=== PATIENT | female | born 1965 | race Caucasian/White ===

== ENCOUNTER 2024-04-06 07:50 | Emergency (ER) | payer BC, SELFPAY ==
[2024-04-06 07:51] VITALS: BP 142/92; PULSE 122; RESP 18; TEMP 36.8; O2SAT 98
--- NOTE | 2024-04-06 07:56 | ED.ABDPAIN ---
HPI - Abdominal Pain General Chief Complaint: Abdominal Pain Stated Complaint: abdominal pain Time Seen by Provider: 04/06/24 07:55 Source: patient and family Mode of arrival: ambulatory Limitations: no limitations History of Present Illness HPI narrative: Patient is a 58-year-old female with abdominal distension and bloating for the past 3 weeks. She has associated abdominal pain with nausea and vomiting. She has seen a primary doctor in which actually made things worse. History of vaginal hysterectomy partial. MD elicited complaint: abdominal pain Pertinent past history: constipation ( difficulty with stool) and gastrointestinal bleeding ( Hemorrhoids) Onset (ago): week(s) ( 3) Pain Consistency: constant Location: diffuse Severity: moderate Pain scale (0-10): 5 Quality: aching, fullness and sharp Radiation: none Migration to: no migration Exacerbating factors: nothing and eating Relieving factors: nothing Context: confirms other ( patient has worsening abdominal pain and distension for the past 3 weeks) Associated symptoms: nausea, vomiting, constipation and hematochezia ( she also has a history of hemorrhoids) Treatments prior to arrival: other ( none) Review of Systems Review of Systems: All systems reviewed & are unremarkable except as noted in HPI and below Constitutional: Constitutional: Reports no additional constitutional complaints Eyes: Eyes: Reports no additional eye complaints ENT: Reports system reviewed and no additional complaints, except as documented Cardiovascular: Cardiovascular: Reports no additional cardiovascular complaints Respiratory: Respiratory: Reports no additional respiratory complaints Gastrointestinal: Gastrointestinal: Reports no additional gastrointestinal complaints Genitourinary: Genitourinary: Reports no additional female genitourinary complaints Musculoskeletal: Musculoskeletal: Reports no additional musculoskeletal complaints Integumentary/Breasts: Skin/Breast: Reports system reviewed and no additional complaints, except as docu Neurologic: Reports system reviewed and no additional complaints, except as documented Psychiatric: Psychiatric: Reports no additional psychiatric complaints Endocrine: Endocrine: Reports no additional endocrine complaints Hematologic/Lymphatic: Hematologic/Lymphatic: Reports no additional hematologic/lymphatic complaints Allergic/Immunologic: Allergic/Immunologic: Reports no additional allergic/immunologic complaints Exam Const: General: ill appearing Nutritional Appearance: well nourished Orientation/consciousness: patient oriented x3 Limitations: no limitations HENMT: Head: normal to inspection Ears: external ears normal Face/Nose/Sinus: Normal external nose present Eyes: Conjunctivae: conjunctivae normal Pupils: Equal, round and reactive pupils present EOM: EOMs intact bilaterally Neck: Neck: normal visual inspection Chest: Chest palpation & inspection: normal inspection of the chest Resp: Effort & Inspection: normal respiratory effort and not labored Auscultation: clear to auscultation bilaterally and no crackles Cardio: Rate: regular rate Rhythm: regular rhythm Heart sounds: no murmurs GI: Inspection: distended GI Palp: No Soft to palpation, Yes Tenderness to palpation present (GI) ( diffuse), Yes Guarding due to palpation present (GI), Yes Rigid due to palpation, No Hernia present, No Palpable mass present and No Rebound tenderness present Auscultation: Hypoactive bowel sounds present Other: fluid wave test positive : General: Yes bladder normal to palpation Back/Spine/Pelvis: Back: no CVA tenderness Skin: General skin exam: normal color Rashes: no rashes Wounds: no wounds Neuro: General: patient oriented x3 Cranial nerves: Yes Nystagmus not present Speech: normal speech Gait exam (Neuro): Normal gait present Extrem: General: normal to inspection Psych: Mental Status: mental status grossly normal Affect: normal affect Attitude: cooperative Course Vital Signs Vital signs: Vital Signs Temperature 36.8 C 04/06/24 07:51 Pulse Rate 122 H 04/06/24 07:51 Respiratory Rate 18 04/06/24 07:51 Blood Pressure 142/92 H 04/06/24 07:51 Pulse Oximetry 98 04/06/24 07:51 Oxygen Delivery Room Air 04/06/24 07:51 Temperature 36.8 C 04/06/24 07:51 Pulse Rate 122 H 04/06/24 07:51 Respiratory Rate 18 04/06/24 07:51 Blood Pressure 142/92 H 04/06/24 07:51 Pulse Oximetry 98 04/06/24 07:51 Oxygen Delivery Room Air 04/06/24 07:51 MDM - Abdominal Pain MDM Narrative Medical decision making narrative: patient is a 58-year-old female with distension of the abdomen and pain with associated nausea vomiting. Will do an abdominal pain workup at this time. Workup shows obstruction with stricture. I discussed with the surgeon at [facility] and they accepted the case. We will transfer patient. Lab Data Attestation: I reviewed the patient's lab results. 04/06/24 08:18 04/06/24 08:18 Labs: Lab Results 04/06/24 Range/Units 08:18 WBC 12.5 H (4.8-10.8) K/mm3 RBC 4.83 (4.20-5.40) M/mm3 Hgb 14.4 (12.0-15.0) g/dL Hct 44.1 (35.0-49.0) % MCV 91.3 (78.0-102.0) fL MCH 29.8 (27.0-31.0) pg MCHC 32.7 (32-36) g/dL RDW 12.3 (11.6-14.4) % Plt Count 696 H (150-420) K/mm3 MPV 8.9 L (9.2-11.8) fl Immature Gran % (Auto) 0.6 H (0.0-0.0) % Neut % (Auto) 57.8 (50.0-70.0) % Lymph % (Auto) 29.2 (18.0-42.0) % Henderson % (Auto) 11.3 H (2.0-11.0) % Eos % (Auto) 0.5 L (1.0-6.0) % Baso % (Auto) 0.6 (0.0-1.0) % Lymph # (Auto) 3.64 (1.10-4.50) K/mm3 Henderson # (Auto) 1.41 H (0.10-0.90) K/mm3 Eos # (Auto) 0.06 (0.02-0.50) K/mm3 Baso # (Auto) 0.07 (0.00-0.10) K/mm3 Abs Immat Gran (auto) 0.08 H (0.00-0.00) K/mm3 Absolute Neuts (auto) 7.20 (1.70-7.20) K/mm3 Absolute Nucleated RBC 0.00 (0.00-0.00) K/mm3 Nucleated RBC % 0.0 (0-0.0) % % Immature Plt Fraction 1.4 (1.0-7.0) % PT 11.5 (9.50-12.1) Seconds INR 1.0 APTT 26.8 (23.9-30.70) Sec Sodium 136 (136-145) mmol/L Potassium 3.7 (3.5-5.1) mmol/L Chloride 94 L (98-108) mmol/L Carbon Dioxide 31 (21-32) mmol/L Anion Gap 11 (4-12) mmol/L BUN 20 H (7-18) mg/dL Creatinine 0.75 (0.55-1.02) mg/dL Estim Creat Clear Calc 59 ml/min Estimated GFR > 60 (59 - ) Glucose 114 H (70-99) mg/dL Calculated Osmolality 285 (285-295) mOsm/kg Lactic Acid 1.3 (0.4-2.0) mmol/L Calcium 8.8 (8.5-10.1) mg/dL Total Bilirubin 0.5 (0.00-1.00) mg/dL AST < 10 L (15-37) U/L ALT 15 (14-59) U/L Alkaline Phosphatase 79 (46-116) U/L NT-Pro-B Natriuret Pep 57 (0-125) pg/mL Total Protein 6.9 (6.4-8.2) g/dL Albumin 3.2 L (3.4-5.0) g/dL Lipase 26 (16-77) U/L Urine Color Dark yellow (Yellow) Urine Appearance Sl cloudy A (Clear) Urine pH 5.5 (5.0-8.0) Ur Specific [place]ock >= 1.030 H (1.010-1.020) Urine Protein 2+ H (Negative) Urine Glucose (UA) Negative (Negative) Urine Ketones 3+ H (Negative) Ur Blood (Man) 1+ H (Negative) Urine Nitrate Negative (Negative) Urine Bilirubin 2+ H (Negative) Urine Urobilinogen 1.0 (0.2-1.0) mg/dL Leukocyte Esterase Rfl Trace H (Negative) FAMILIA/UL Urine RBC 3-5 H (0-2) /hpf Urine WBC 0-3 (0-3) /hpf Ur Squamous Epith Cells Few (Few) /hpf Urine Bacteria 1+ H (None) /hpf Urine Mucus Moderate H /lpf Imaging Data Attestation: I personally reviewed and interpreted this imaging study as follows: Radiologist's impression: ITS Impressions Abdomen/Pelvis CT 04/06/24 09:24 IMPRESSION: 1. Wall thickening of the sigmoid colon with stricture and bowel obstruction, consistent with chronic diverticulitis or less likely malignancy. 2. Small volume of ascites. Discharge Plan Discharge Clinical Impression: SBO (small bowel obstruction), Stricture of sigmoid colon Patient Disposition: Acute Care Hospital Condition: Stable Patient Language: Sinhala Follow-up/Referrals: Jennifer,Cheryl Lewis MD [Primary Care Provider] - Time of Disposition: 09:49
[2024-04-06 08:23] LABS: Add Urine Microscopic? YES; Appearance Urine Sl Cloudy (Clear); Bilirubin Urine 2+ (Negative); Blood Urine 1+ (Negative); Color Urine Dark Yellow (Yellow); Glucose Urine UA Negative (Negative); Ketones Urine 3+ (Negative); Leukocyte Esterase Ur Trace LEU/UL (Negative); Nitrate Urine Negative (Negative); Protein Urine 2+ (Negative); Specific Grav Ur >= 1.030 (1.010-1.020); pH Urine 5.5 (5.0-8.0)
[2024-04-06 08:25] LABS: Basophils Absolute Auto 0.07 K/mm3 (0.00-0.10); Basophils Percent Auto 0.6 % (0.0-1.0); Eosinophils Absolute Auto 0.06 K/mm3 (0.02-0.50); Eosinophils Percent Auto 0.5 % (1.0-6.0); Hematocrit 44.1 % (35.0-49.0); Hemoglobin 14.4 g/dL (12.0-15.0); Immature Granulocyte Absolute 0.08 K/mm3 (0.00-0.00); Immature Granulocyte Percent A 0.6 % (0.0-0.0); Immature Platelet Fraction Pct 1.4 % (1.0-7.0); Lymphocytes Absolute Auto 3.64 K/mm3 (1.10-4.50); Lymphocytes Percent Auto 29.2 % (18.0-42.0); Mean Corpuscular HGB Conc 32.7 g/dL (32-36); Mean Corpuscular Hemoglobin 29.8 pg (27.0-31.0); Mean Corpuscular Volume 91.3 fL (78.0-102.0); Mean Platelet Volume 8.9 fl (9.2-11.8); Monocytes Absolute Auto 1.41 K/mm3 (0.10-0.90); Monocytes Percent Auto 11.3 % (2.0-11.0); Neutrophils Percent Auto 57.8 % (50.0-70.0); Platelet Count Result 696 K/mm3 (150-420); Red Blood Count 4.83 M/mm3 (4.20-5.40); Red Cell Distribution Width 12.3 % (11.6-14.4); White Blood Count 12.5 K/mm3 (4.8-10.8)
[2024-04-06 08:43] LABS: Bacteria Urine 1+ /hpf; Lactic Acid Reflex 1.3 mmol/L (0.4-2.0); Mucus Urine Moderate /lpf; Squamous Epithelial Cell Urine Few /hpf (Few); WBC Urine 0-3 /hpf (0-3)
[2024-04-06 08:48] LABS: Alanine Aminotransferase 15 U/L (14-59); Albumin Level 3.2 g/dL (3.4-5.0); Alkaline Phosphatase 79 U/L (46-116); Anion Gap 11 mmol/L (4-12); Aspartate Amino Transferase < 10 U/L (15-37); Bilirubin,Total 0.5 mg/dL (0.00-1.00); Blood Urea Nitrogen 20 mg/dL (7-18); Calcium 8.8 mg/dL (8.5-10.1); Carbon Dioxide 31 mmol/L (21-32); Chloride 94 mmol/L (98-108); Estimated CRCL calculation 59 ml/min; Estimated Glomerular Filt Rate > 60; Glucose 114 mg/dL (70-99); Lipase 26 U/L (16-77); NT Pro B Type Natriuretic Pept 57 pg/mL (0-125); Osmolality Calculated 285 mOsm/kg (285-295); Potassium 3.7 mmol/L (3.5-5.1); Sodium 136 mmol/L (136-145); Total Protein 6.9 g/dL (6.4-8.2)
[2024-04-06 08:50] LABS: Partial Thromboplastin Time 26.8 Sec (23.9-30.70); Prothrombin Time 11.5 Seconds (9.50-12.1)
[2024-04-06 09:50] VITALS: BP 138/88; PULSE 105; RESP 20; O2SAT 97
[2024-04-06 11:35] VITALS: BP 149/91; PULSE 108; RESP 20; O2SAT 96
[2024-04-06 13:40] VITALS: BP 136/89; PULSE 105; RESP 20; TEMP 37.1; O2SAT 97
== END 2024-04-06 13:40 | disposition short-term general hospital (02) ==
PROVIDERS: Emergency Provider Emergency Medicine; PCP Family Medicine
DX: K56.609 Unspecified intestinal obstruction, unspecified as to partial versus complete obstruction (principal); K56.699 Other intestinal obstruction unspecified as to partial versus complete obstruction; Z90.711 Acquired absence of uterus with remaining cervical stump
CPT/HCPCS: 36415; 74177; 80053; 81001; 83605; 83690; 83880; 85025; 85055; 85610; 85730; 99285; Q9967

== ENCOUNTER 2024-04-06 14:32 | Inpatient (IN) | payer BC, SELFPAY ==
[2024-04-06] VITALS (11 sets, daily range): BP systolic 126–149; BP diastolic 80–98; PULSE 93–116; RESP 12–18; TEMP 36.1–37.1; O2SAT 92–100; BMI 20.1
--- NOTE | ~2024-04-06 | XR_ITS ---
CORRECTED REPORT moved image and report to [id number] [facility] [place] 04/10/24 This report was recreated on 04/10/24. Original report was Electronically signed by? Sly Timmons MD in [place]>04/06/241844 XR abdomen gastric tube rechec History: . placed at another facility . Comparison: None. FINDINGS/impression: Nasogastric tube is seen with the tip in the fundus of the stomach. The sidehole is near to the gastroesophageal junction. Advancement by 3 cm is advised. Postoperative and degenerative changes of the spine. Reviewed, dictated and finalized at location A. [employer] Please be advised this is a medical document. It is intended for [id number] communication. It is written in medical language and may contain unfamiliar abbreviations or verbiage. Medical documents are intended to carry relevant information, facts as evident, and the clinical opinion of the practitioner at the time of the encounter. This report may have been done utilizing a voice recognition system. Attempts have been made to correct errors. However, there may be uncorrected grammatical, spelling, and recognition errors present. The file time of this note does not necessarily represent the time of service. Dictated By:? Sly Timmons MD? 04/06/241842 Signed By:??? <Electronically signed by? Sly Timmons MD in [place]>04/06/241844 [facility]
--- NOTE | 2024-04-06 14:28 | P.HP_ITS ---
H&P: HPI History of Present Illness Date/Time: 04/06/24 14:28 Chief Complaint: Abdominal Pain, Bloating Narrative: 58 y/o F presents here with abdominal pain and bloating with PMH of external hemorrhoids and scoliosis. The patient presents to [facility] from [place] [facility] for further management of bowel obstruction in the sigmoid colon. She reports that she has been experiencing abdominal pain, bloating, and post-prandial abdominal pain for the past 3 weeks. She initially sought care with her PCP on 04/03 and was prescribed mag citrate without relief. States the medication made her symptoms significantly worse. Patient also notes BRB per rectum, does report hx of hemorrhoids. No previous colonoscopy. LBM was this morning, very small pellets with paste like texture. Denies personal or family history of cancer. Initial VS at presentation: 98.2? F, HR 122, RR 18, 142/92, and 98% on RA. ED workup showed: WBC 12.5, no anemia, normal coags, creatinine 0.75 and GFR >60, glucose 114, normal LFTs, lactic acid 1.3, and UA consistent with UTI. CT of the abdomen/pelvis showed 2 wall thickening of sigmoid colon with stricture in bowel obstruction consistent with chronic different colitis or less likely malignancy and small volume ascites. Review of Systems Review of Systems: All systems reviewed & are unremarkable except as noted in HPI and below PMFSH Past Medical History Medical History Current smoker Scoliosis External hemorrhoids Surgical History Surgical History History of back surgery [facility] Erik Social History Social History Smoking status: Current every day smoker Tobacco type: cigarettes Additional smoking assessment comments: off and on since she was 15 Alcohol intake: current Drinks per week: 6 Substance use: current Substance use type: marijuana Other substance usage details: daily Last use: 03/23/24 Do You Feel Safe in your Home?: Yes Lack of Transportation: YES Lack of Food: Never True Current Housing: I Have Housing Concerned About Future Housing: No Difficulty Paying Gas/Electric Bills: No Difficulty Paying for Meds: No Currently Unemployed: YES Education: Grade School Difficulty w/ Childcare or Family Care: No Spiritual care concerns: No Meds Home Medications and Allergies Home Medications ?Medication ?Instructions ?Recorded ?Confirmed ?Type rhubarb root extract 4 mg tablet See Rx Instructions PO DAILY@1600 04/06/24 04/06/24 History (Estroven Complete Menopause Relief) Allergies Allergy/AdvReac Type Severity Reaction Status Date / Time No Known Allergies Allergy Verified 04/06/24 10:55 Exam Const: General: comfortable and no acute distress Other: , female, fatigued, nontoxic appearance HENMT: Face/Nose/Sinus: Normal nares present Mouth: Yes moist mucous membranes Other: NG in place Eyes: General: appearance normal, both eyes and all related structures Sclera: sclerae normal Pupils: Equal, round and reactive pupils present EOM: EOMs intact bilaterally Resp: Effort & Inspection: normal respiratory effort Auscultation: clear to auscultation bilaterally Cardio: Rate: regular rate Rhythm: regular rhythm Other: S1-S2 present without murmur, rub, ectopy GI: Other: abdomen distended, modestly firm. ostomy bag now in place, dark brown liquid output. Unable to assess stoma despite emptying ostomy due to stool. Normoactive BS in upper quadrants, reduced in lower. Skin: General skin exam: normal color and no rashes or lesions noted Wounds: no wounds Neuro: Speech: normal speech Motor exam (neuro): 5/5 motor strength present throughout Sensory Exam: normal sensation Other: A&O x4 Extrem: General: normal to inspection Psych: Mental Status: mental status grossly normal Affect: normal affect Other: Good insight and judgment, pleasant Assessment and Plan Assessment and plan (1) Obstruction of colon: Code(s): K56.609 - Unspecified intestinal obstruction, unspecified as to partial versus complete obstruction Status: Acute Assessment and Plan: - CT abd/pelvis: 1. Wall thickening of the sigmoid colon with stricture and bowel obstruction, consistent with chronic diverticulitis or less likely malignancy. 2. Small volume of ascites. - NG placement - started on ceftriaxone and Flagyl on 04/06 - general surgery consulted, [facility] this afternoon for ostomy creation, emergent further work up for stricture once patient improved - IV fluids: 2L bolus -> 100 mL/hr - analgesics and antiemetics p.r.n. - has never underwent a colonoscopy - monitor CBC and electrolytes (2) Stricture of sigmoid colon: Code(s): K56.699 - Other intestinal obstruction unspecified as to partial versus complete obstruction Status: Chronic Assessment and Plan: - see above Plan Diet: NPO except ice chips GI Prophylaxis: pantoprazole IV DVT Prophylaxis: SCDs, Lovenox Lines: peripheral Code Status: full code Quality VTE Prophylaxis VTE prophylaxis: mechanical ordered and pharmacologic ordered Hospitalist MIPS Advance Care Plan I have confirmed that the patient's Advanced Care Plan is present, code status is documented, or surrogate decision maker is listed in patient medical record.: Yes Medication Reconciliation I have utilized all available resources to obtain, update and review the patients current medications (includes all prescriptions, OTC, herbals, cannabis, and nutritional supplements).: Yes
--- OUTSIDE RECORDS SUMMARY | 2024-04-06 14:28 | XMS_ITS | Clinical Summary ---
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 Gender Identity Not on file Sexual Orientation Not on file Plan of Treatment Health Maintenance Due Date Last Done Comments Cervical Cancer Screening Pa p Smear (Age 30 to 64) Every 3 Years 1964 Colorectal Cancer Screening Colonoscopy (10 Years) 1964 Annual Physical 07/24/1967 Hepatitis C 1982 DTaP, Tdap and Td Vaccines ( 1 - Tdap) 07/24/1983 Cervical Cancer Screening Pa p with HPV Testing (Age 30 to 64) Every 5 Years 1994 Cervical Cancer Screening with HPV 1994 Mammogram Screening 2004 Zoster Vaccines (1 of 2) 2014 COVID-19 Vaccine (2023-2 5 season) 2023 Influenza Adult (#1) 2023 Meningococcal B Vaccine Aged Out No l onger eligible based on patient's age to complete this topic Meningococcal Vaccine Aged Out No david kin eligible based on patient's age to complete this topic Pneumococcal Vaccine: Pediat rics (0 to 5 Years) and At-Risk Patients (6 to 64 Years) Aged Out No longer eligible b ased on patient's age to complete this topic RSV Immunizations Under 20 Months Aged Out No longer eligible based on patient's age to complete this topic
--- NOTE | 2024-04-06 14:37 | P.CONGS_ITS ---
Assessment and Plan Assessment and plan (1) Obstruction of colon: Code(s): K56.609 - Unspecified intestinal obstruction, unspecified as to partial versus complete obstruction Status: Acute Assessment and Plan: Colonic distal obstruction could be due to diverticulitis with stricture or could be due to neoplasm, fecal impaction another possibility although not really seen on the CT scan. Evaluation of the source of the obstruction can be done later once the obstruction is relieved. Plan to proceed with transverse diverting colostomy under general anesthesia. Explained this procedure to the patient. Explained that further evaluation will be done once the obstruction is relieved and she is feeling better. Surgical were all resection and closure of the colostomy will be planned once evaluation is complete and patient feeling back to normal again. Will proceed emergently today. (2) Stricture of sigmoid colon: Code(s): K56.699 - Other intestinal obstruction unspecified as to partial versus complete obstruction Status: Chronic Assessment and Plan: Please see above. (3) Current smoker: Code(s): F17.200 - Nicotine dependence, unspecified, uncomplicated Status: Chronic Assessment and Plan: increases surgical risks History of Present Illness Consult details Consult date: 04/06/24 Reason for consult: abdominal pain Requesting physician: Breezy Faye MD Narrative: Patient is a 58-year-old woman who presented to [facility] emergency room earlier today. She has complaints of diffuse abdominal pain with bloating and distension. This has been going on for at least a couple of weeks. She also has a history of constipation. Her only previous abdominal surgery was a vaginal hysterectomy. In the emergency room and [facility] she was noted to be tachycardic with a distended tender abdomen. Her white blood cell count was [id number]. She had a CT scan of the abdomen and pelvis which showed markedly distended and fluid will with filled colon with stricture and obstruction in the area of the sigmoid colon. I have reviewed her CT scan independently agree pre with this diagnosis. She has been transferred to [facility] now with distal colonic obstruction for emergent evaluation and surgical decompression with colostomy. Review of Systems Review of Systems: All systems reviewed & are unremarkable except as noted in HPI and below (HPI) Constitutional: Constitutional: Reports malaise and Reports poor appetite Cardiovascular: Cardiovascular: Denies chest pain, Denies diaphoresis, Denies dyspnea and Denies paroxysmal nocturnal dyspnea Respiratory: Respiratory: Denies chest congestion, Denies cough and Denies dyspnea Gastrointestinal: Gastrointestinal: Reports as per HPI, Reports abdominal pain, Reports bloating, Reports hematochezia, Reports constipation, Reports nausea and Reports vomiting Integumentary/Breasts: Skin/Breast: Denies lesions and Denies rash [facility] Social History Social History (Updated 04/06/24 @ 15:38 by Evgeny Caraballo DO) Smoking status: Current every day smoker Tobacco type: cigarettes Additional smoking assessment comments: off and on since she was 15 Alcohol intake: current Drinks per week: 6 Substance use: current Substance use type: marijuana Other substance usage details: daily Last use: 03/23/24 Do You Feel Safe in your Home?: Yes Lack of Transportation: YES Lack of Food: Never True Current Housing: I Have Housing Concerned About Future Housing: No Difficulty Paying Gas/Electric Bills: No Difficulty Paying for Meds: No Currently Unemployed: YES Education: Grade School Difficulty w/ Childcare or Family Care: No Spiritual care concerns: No Meds Home Medications and Allergies Home Medications ?Medication ?Instructions ?Recorded ?Confirmed ?Type rhubarb root extract 4 mg tablet See Rx Instructions PO DAILY@1600 04/06/24 04/06/24 History (Estroven Complete Menopause Relief) Allergies Allergy/AdvReac Type Severity Reaction Status Date / Time No Known Allergies Allergy Verified 04/06/24 10:55 Exam Const: General: cooperative, no acute distress, alert, awake and uncomfortable Orientation/consciousness: patient oriented x3 HENMT: Head: normocephalic and atraumatic Mouth: Yes Normal oral and palatal mucosa present Eyes: Conjunctivae: conjunctivae normal Pupils: Equal, round and reactive pupils present EOM: EOMs intact bilaterally Neck: Neck: normal visual inspection, no lymphadenopathy and nontender Resp: Effort & Inspection: normal respiratory effort Auscultation: clear to auscultation bilaterally Cardio: Rate: regular rate Rhythm: regular rhythm Heart sounds: no gallops, no murmurs and no rubs GI: Inspection: distended and no visible herniation GI Palp: Yes Soft to palpation, Yes Tenderness to palpation present (GI) (Diffusely tender and distended), Yes Guarding due to palpation present (GI), No Hepatomegaly present, No Splenomegaly present, No Hernia present and No Palpable mass present Auscultation: absent bowel sounds Skin: Lesions: no lesions Rashes: no rashes Neuro: General: no focal motor deficits and CN's II-XI intact bilaterally Cranial nerves: Yes Equal, round and reactive pupils present, Yes Bilaterally intact EOM present, Yes facial symmetry and Yes Midline tongue present Speech: normal speech Motor exam (neuro): 5/5 motor strength present throughout and Motor abnormalities not present Extrem: General: no clubbing, cyanosis or edema and edema Psych: Affect: normal affect Thought process: Normal thought process p resent Insight: Good insight present (Psych) Results Labs Labs: All other labs normal. Imaging Abdomen CT scan report/results: report reviewed and image reviewed (See HPI) CT scan - pelvis: report reviewed and image reviewed
--- NOTE | 2024-04-06 14:46 | ADMGEN ---
This patient, Sintia Lipscomb, was admitted to [facility] Room 325-01. Patient/family oriented to hospital policies and general routines including ID bracelet, bed and alarms, visiting hours, pain management, procedures, bathroom and other care routines, personal items, smoking policy, room service/diet, and visiting hours. Information on how to activate the Rapid Response Team has been discussed. Patient/Family are encouraged to report perceived risks to care and to ask questions if they do not understand what they are told or what they should do.
--- NOTE | 2024-04-06 14:51 | WPDHPUPDATE1 ---
History and Physical Update Update Date/Time: 04/06/24 14:51 History and Physical has been reviewed, including an updated exam of the patient. There are NO changes in the patient's condition. Risks, benefits, and alternatives have been discussed and questions answered. Patient agrees to proceed with procedure.
--- OUTSIDE RECORDS SUMMARY | 2024-04-06 14:51 | XMS_ITS | Clinical Summary ---
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
--- NOTE | 2024-04-06 15:26 | WPDANESEPPF ---
Anes - Initial Pre Proc Eval Procedure: Operation Date: 04/06/24 16:00 Proposed Procedures p Diverting Transverse Colostomy - Nic Clinton MD Date/Time: 04/06/24 15:26 Surgeon: Glenn Zepeda MD Pre Op Diagnosis: Obstruction of Colon Patient Data Age: 58 Gender: F Height: 1.65 m Weight: 55 kg Last Vital Signs Temp 36.7 C 04/06/24 14:40 Pulse 107 H 04/06/24 14:40 Resp 18 04/06/24 14:40 BP 138/82 04/06/24 14:40 Pulse Ox 97 04/06/24 14:40 Allergies Allergy/AdvReac Type Severity Reaction Status Date / Time No Known Allergies Allergy Verified 04/06/24 10:55 Home Medications ?Medication ?Instructions ?Recorded ?Confirmed ?Type rhubarb root extract 4 mg tablet See Rx Instructions PO DAILY@1600 04/06/24 04/06/24 History ([place]ro[place] Complete Menopause Relief) Patient hx anesthesia problems: none Family hx anesthesia problems: none Results Review: All pre-operative results and documents have been reviewed as part of the pre-operative evaluation. [facility] Social History Social History (Updated 04/06/24 @ 15:38 by Evgeny Caraballo DO) Smoking status: Current every day smoker Tobacco type: cigarettes Additional smoking assessment comments: off and on since she was 15 Alcohol intake: current Drinks per week: 6 Substance use: current Substance use type: marijuana Other substance usage details: daily Last use: 03/23/24 Do You Feel Safe in your Home?: Yes Lack of Transportation: YES Lack of Food: Never True Current Housing: I Have Housing Concerned About Future Housing: No Difficulty Paying Gas/Electric Bills: No Difficulty Paying for Meds: No Currently Unemployed: YES Education: Grade School Difficulty w/ Childcare or Family Care: No Spiritual care concerns: No Anes - Eval Final PreProcedure Day of Procedure 04/06/24 15:26 Patient weight: normal Heart: regular rate and rhythm Lungs: clear to auscultation Airway: Mallampati scale class III Neurological: alert and oriented Last oral intake: >/= 8 hours ASA classification: III Emergent: no Anesthetic plan: proceed Anesthesia type and monitoring: general ETT and standard monitoring Results Review: All pre-operative results and documents have been reviewed as part of the pre-operative evaluation. Informed Consent: The patient's anesthetic plan and its attendant risks and benefits were discussed with the patient/family/POA. Questions were solicited and answers provided to the satisfaction of the patient/family/POA.
[2024-04-06] MEDS: PIPERACILLN/TAZ 3.375GM/NS50ML 3.375 GM/50 ML BAG IVPB (16:28)
[2024-04-06] MEDS: LACTATED RINGERS 1,000 ML 30 ML IV CONT ×3 (17:00→18:23)
--- NOTE | 2024-04-06 18:22 | P.OP_ITS ---
Procedure Note - Detailed Date of Procedure 04/06/24 Pre-op Diagnosis Obstruction of Colon Post-op Diagnosis Same Procedure Performed Creation diverting transverse colostomy Surgeon Nic Clinton MD Electronic [employer] Trou[employer]ooter Kandis SPARKS Anesthesia General Indications Patient presented to the emergency room in [place] earlier today. Exam, labs, imaging showed evidence of complete colonic obstruction at the level of the sigmoid colon. Etiology is unclear. She was transferred to [facility] and is taken to surgery now for diverting transverse colostomy Findings Dilated transverse colon Description of Procedure Patient was taken to the operating room and induced into general anesthesia. Steele catheter was placed. The abdomen is prepped and draped. An upper midline incision was marked on the skin. Incision was made and dissection was carried down through the subcutaneous and then through the midline fascia. The peritoneum was opened and extended the length of the wound. Mobilization of some transverse colon omentum and the transverse colon was carried out through the wound opening. I divided some of the omental attachments to the mid transverse colon. I was then able to bring up the mid transverse colon and a loop fashion. Colon was viable with no evidence of ischemic change. I closed some of the fascial opening with an 0 PDS [id number]-[id number] mattress suture cep halad into the wound. I adjusted the position of the transverse colon to the appropriate extent. Subcuticular 4-0 Vicryl sutures were placed to narrow the skin opening both the cephalad and caudad ends of the wound. I then made an incision in the left side of the loop of colostomy with the cautery. Gas came forward but no stool was spilled. We did suction some liquid stool from the colon lumen. I extended this incision to about half the colon with. I then matured the mucous fistula end as well as the colostomy end with interrupted 4-0 chromic suture. Each of these suture was full-thickness skin and full-thickness bowel. The 2 lumens were easily seen. We then cleaned and prepped the skin around the stoma. Stoma appliance was cut to the appropriate size and then applied to the skin. Patient was then awakened and extubated. She transferred to recovery room in good condition. Sponge needle counts were correct x2. Implants None Estimated Blood Loss -5 Drains No Packing No Pathology None sent Complications None Condition Stable Disposition PACU [facility] Billing Surgery - Charge Forward: Surgery Billing (Creation diverting transverse colostomy)
[2024-04-06] MEDS: LACTATED RINGERS 1,000 ML 100 ML IV CONT (20:21)
[2024-04-06] MEDS: FAMOTIDINE 20 MG/2 ML VIAL IV PUSH (20:22)
[2024-04-06] MEDS: metroNIDAZOLE 500 MG/ISO 100ML 500 MG/100 ML BAG 100 MG IVPB (22:19)
[2024-04-07] VITALS (7 sets, daily range): BP systolic 107–145; BP diastolic 65–86; PULSE 92–103; RESP 18; TEMP 36.1–37.7; O2SAT 94–97
[2024-04-07] MEDS: metroNIDAZOLE 500 MG/ISO 100ML 500 MG/100 ML BAG 100 MG IVPB ×3 (05:58→22:30)
[2024-04-07 07:02] LABS: Basophils Absolute Auto 0.1 K/mm3 (0.0-0.1); Basophils Percent Auto 0.5 % (0.2-1.2); Eosinophils Percent Auto 0.1 % (0-4.4); Hematocrit 38.5 % (37.0-47.0); Hemoglobin 12.3 g/dL (12.0-15.0); Immature Granulocyte Absolute 0.05 K/mm3 (0.00-0.031); Immature Granulocyte Percent A 0.5 % (0-0.5); Lymphocytes Absolute Auto 1.93 K/mm3 (0.9-3.2); Lymphocytes Percent Auto 21.2 % (18.3-44.2); Mean Corpuscular HGB Conc 31.9 g/dl (32-36); Mean Corpuscular Hemoglobin 30.1 pg (26-34); Mean Corpuscular Volume 94.1 fl (80-100); Mean Platelet Volume 9.3 fl (7.4-10.4); Monocytes Absolute Auto 1.4 K/mm3 (0.1-0.6); Neutrophils Absolute Auto 5.7 K/mm3 (1.3-6.7); Neutrophils Percent Auto 62.7 % (45.5-73.1); Platelet Count Result 572 k/mm3 (150-375); Red Blood Count 4.09 M/mm3 (4.2-5.4); Red Cell Distribution Width 12.5 % (11.5-14.5); White Blood Count 9.1 K/mm3 (4.5-10.0)
[2024-04-07] MEDS: FAMOTIDINE 20 MG/2 ML VIAL IV PUSH (08:38)
[2024-04-07] MEDS: ENOXAPARIN 40 MG/0.4 ML SYRINGE SUB-Q (08:40)
[2024-04-07] MEDS: IBUPROFEN IV 800 MG/200 ML 800 MG/200 ML BAG 400 MG IVPB (08:41)
[2024-04-07 08:45] LABS: Anion Gap 12 mmol/L (4-12); Blood Urea Nitrogen 18 mg/dL (7-17); Calcium 8.3 mg/dL (8.4-10.2); Carbon Dioxide 23 mmol/L (22-30); Chloride 98 mmol/L (98-107); Estimated CRCL calculation 83 ml/min; Estimated Glomerular Filt Rate > 60; Glucose 88 mg/dL (65-110); Potassium 3.5 mmol/L (3.4-5.0); Sodium 133 mmol/L (137-145)
[2024-04-07] MEDS: LACTATED RINGERS 1,000 ML 100 ML IV CONT ×2 (08:55→22:30)
[2024-04-07 10:09] LABS: Magnesium 1.9 mg/dL (1.6-2.3)
--- NOTE | 2024-04-07 10:49 | P.PNIM_ITS ---
Progress Note: A&P Assessment and Plan (1) Obstruction of colon: Code(s): K56.609 - Unspecified intestinal obstruction, unspecified as to partial versus complete obstruction Status: Acute Assessment and Plan: - CT abd/pelvis: 1. Wall thickening of the sigmoid colon with stricture and bowel obstruction, consistent with chronic diverticulitis or less likely malignancy. 2. Small volume of ascites. - NG placement - started on ceftriaxone and Flagyl on 04/06 - general surgery consulted, [facility] yesterday for ostomy creation, emergent Colostomy is working well draining brown stool. further work up for stricture once patient improved - NG tube discontinued today. Started on a full liquid diet. - analgesics and antiemetics p.r.n. - has never underwent a colonoscopy - monitor CBC and electrolytes (2) Stricture of sigmoid colon: Code(s): K56.699 - Other intestinal obstruction unspecified as to partial versus complete obstruction Status: Inactive Assessment and Plan: - see above Subjective Date/time seen: 04/07/24 10:49 Interval history: Patient denies pain at present. Patient denies chest pain, palpitations, headache, dizziness, nausea, or vomiting. Throat is a little sore from NG tube. Review of Systems Review of Systems: All systems reviewed & are unremarkable except as noted in HPI and below Exam Const: General: comfortable and no acute distress Resp: Effort & Inspection: normal respiratory effort Auscultation: clear to auscultation bilaterally Cardio: Rate: regular rate Rhythm: regular rhythm GI: GI Palp: Yes Soft to palpation Auscultation: normal bowel sounds Other: Colostomy draining liquid brown stool with gas in bag. Neuro: Speech: normal speech Extrem: General: no pedal edema Psych: Mental Status: mental status grossly normal Affect: normal affect Objective Data Vital Signs Vital Signs: Vital Signs - 24 hr 04/06/24 14:40 04/06/24 18:23 04/06/24 18:30 Temperature 98.1 F 98.8 F Pulse Rate 107 H 116 H 100 Respiratory Rate 18 16 14 Blood Pressure 138/82 144/92 H 149/98 H Pulse Oximetry 97 100 100 Oxygen Delivery Simple Face Mask Simple Face Mask Oxygen Flow Rate 10 10 04/06/24 18:45 04/06/24 19:00 04/06/24 19:15 Temperature Pulse Rate 99 97 98 Respiratory Rate 14 12 15 Blood Pressure 148/83 H 132/87 128/86 Pulse Oximetry 98 96 95 Oxygen Delivery Room Air Room Air Room Air Oxygen Flow Rate 04/06/24 19:30 04/06/24 19:35 04/06/24 19:50 Temperature 97.0 F L 97.3 F L Pulse Rate 98 97 99 Respiratory Rate 14 18 18 Blood Pressure 126/81 130/80 129/80 Pulse Oximetry 95 94 92 Oxygen Delivery Room Air Oxygen Flow Rate 04/06/24 20:20 04/06/24 20:20 04/06/24 21:20 Temperature 97.0 F L 97.4 F L Pulse Rate 93 93 97 Respiratory Rate 18 18 18 Blood Pressure 129/82 135/80 Pulse Oximetry 96 96 95 Oxygen Delivery Room Air Oxygen Flow Rate 04/07/24 01:20 04/07/24 05:20 04/07/24 09:13 Temperature 97.2 F L 98.3 F Pulse Rate 92 95 Respiratory Rate 18 18 Blood Pressure 120/83 145/86 H Pulse Oximetry 95 95 Oxygen Delivery Room Air Oxygen Flow Rate Intake/Output Intake/Output: Intake & Output 04/04/24 04/05/24 04/06/24 04/07/24 23:59 23:59 23:59 23:59 Intake Total 350 1000 Output Total 1200 200 Balance -850 800 Meds/Results Medications: Active Medications Generic Name Dose Route Start Last Admin Trade Name Freq PRN Reason Stop Dose Admin Enoxaparin Sodium 40 mg 04/07/24 09:00 04/07/24 08:40 Enoxaparin 40 Mg/0.4 Ml Syringe SUB-Q 40 mg DAILY DAYNA Administration Famotidine 20 mg 04/06/24 21:00 04/07/24 08:38 Famotidine 20 Mg/2 Ml Vial IV PUSH 20 mg Q12HR DAYNA Administration Lactated Ringer's 1,000 mls @ 100 mls/hr 04/06/24 19:35 04/07/24 08:55 Lr - Lactated Ringers Iv IV CONT 100 mls/hr .Q10H DAYNA Administration Ibuprofen 800 mg in 200 mls @ 400 mls/hr 04/06/24 19:35 04/07/24 08:41 Caldolor 800 Mg/200 Ml IVPB 400 mls/hr Q6H PRN Administration Breakthrough Pain Rated 1-3 or NPO Ceftriaxone Sodium 1 gm in 50 mls @ 100 mls/hr 04/06/24 21:00 04/06/24 20:21 Rocephin 1 Gm/Ns 50 Ml IVPB 100 mls/hr Q24H DAYNA Administration Metronidazole 500 mg in 100 mls @ 100 mls/hr 04/06/24 22:00 04/07/24 05:58 Flagyl 500 Mg/Iso Soln 100 Ml IVPB 100 mls/hr Q8HR DAYNA Administration Morphine Sulfate 1 mg 04/06/24 19:35 Morphine Sulfate (*Crx) 2 Mg/Ml Inj IV PUSH Q2H PRN Breakthrough Pain Rated 4-6 or NPO Morphine Sulfate 2 mg 04/06/24 19:35 Morphine Sulfate (*Crx) 4 Mg/Ml Inj IV PUSH Q2H PRN Breakthrough Pain Rated 7-10 or NPO Naloxone HCl 0.1 mg 04/06/24 19:35 Naloxone Hcl 0.4 Mg/Ml Vial IV PUSH Q2M PRN Opiate Reversal Ondansetron HCl 4 mg 04/06/24 19:35 Ondansetron Inj 4 Mg/2 Ml Vial IV PUSH Q4H PRN Nausea And Vomiting Phenol 1 spray 04/07/24 09:57 Phenol/Sod Pheno [place] (*Bkc) MUCOUS MEM PRN PRN Sore Throat Labs Labs: Laboratory Results - last 24 hr 04/07/24 06:27 WBC 9.1 RBC 4.09 L Hgb 12.3 Hct 38.5 MCV 94.1 MCH 30.1 MCHC 31.9 L RDW 12.5 Plt Count 572 H MPV 9.3 Immature Gran % (Auto) 0.5 Neut % (Auto) 62.7 Lymph % (Auto) 21.2 [place] % (Auto) 15.0 H Eos % (Auto) 0.1 Baso % (Auto) 0.5 Lymph # (Auto) 1.93 [place] # (Auto) 1.4 H Eos # (Auto) 0.0 Baso # (Auto) 0.1 Abs Immat Gran (auto) 0.05 H Absolute Neuts (auto) 5.7 Absolute Nucleated RBC 0.000 Nucleated RBC % 0.0 Sodium 133 L Potassium 3.5 Chloride 98 Carbon Dioxide 23 Anion Gap 12 BUN 18 H Creatinine 0.53 L Estim Creat Clear Calc 83 Estimated GFR > 60 Glucose 88 Calcium 8.3 L Magnesium 1.9 Quality VTE Prophylaxis VTE prophylaxis: mechanical ordered and pharmacologic ordered
--- NOTE | 2024-04-07 15:06 | P.PNGS_ITS ---
Progress Note: A&P Assessment and Plan (1) Obstruction of colon: Code(s): K56.609 - Unspecified intestinal obstruction, unspecified as to partial versus complete obstruction Status: Acute Assessment and Plan: Greatly improved. Will discontinue NG tube and start full liquids. Recheck labs and exam again tomorrow. Up walking today. Subjective Subjective Date/Time Seen: 04/07/24 15:06 Post Op day: 1 Patient reports: feels better, pain is less, bowel movement and afebrile Exam Const: General: comfortable, alert and awake Nutritional Appearance: thin Orientation/consciousness: patient oriented x3 GI: Inspection: non-distended, scaphoid and other (Good stoma output, liquid brown stool) GI Palp: Yes Soft to palpation and No Tenderness to palpation present (GI) Auscultation: normoactive bowel sounds Objective Data Vital Signs Vital Signs: Vital Signs - 24 hr 04/06/24 18:23 04/06/24 18:30 04/06/24 18:45 Temperature 37.1 C Pulse Rate 116 H 100 99 Respiratory Rate 16 14 14 Blood Pressure 144/92 H 149/98 H 148/83 H Pulse Oximetry 100 100 98 Oxygen Delivery Simple Face Mask Simple Face Mask Room Air Oxygen Flow Rate 10 10 04/06/24 19:00 04/06/24 19:15 04/06/24 19:30 Temperature Pulse Rate 97 98 98 Respiratory Rate 12 15 14 Blood Pressure 132/87 128/86 126/81 Pulse Oximetry 96 95 95 Oxygen Delivery Room Air Room Air Room Air Oxygen Flow Rate 04/06/24 19:35 04/06/24 19:50 04/06/24 20:20 Temperature 36.1 C L 36.3 C L 36.1 C L Pulse Rate 97 99 93 Respiratory Rate 18 18 18 Blood Pressure 130/80 129/80 129/82 Pulse Oximetry 94 92 96 Oxygen Delivery Oxygen Flow Rate 04/06/24 20:20 04/06/24 21:20 04/07/24 01:20 Temperature 36.3 C L 36.2 C L Pulse Rate 93 97 92 Respiratory Rate 18 18 18 Blood Pressure 135/80 120/83 Pulse Oximetry 96 95 95 Oxygen Delivery Room Air Oxygen Flow Rate 04/07/24 05:20 04/07/24 08:00 04/07/24 09:13 Temperature 36.8 C Pulse Rate 95 Respiratory Rate 18 Blood Pressure 145/86 H Pulse Oximetry 95 Oxygen Delivery Room Air Room Air Oxygen Flow Rate 04/07/24 10:30 04/07/24 13:20 Temperature 37.4 C 37.7 C H Pulse Rate 103 H 96 Respiratory Rate 18 18 Blood Pressure 124/69 123/77 Pulse Oximetry 97 96 Oxygen Delivery Oxygen Flow Rate Intake/Output Intake/Output: Intake & Output 04/04/24 04/05/24 04/06/24 04/07/24 23:59 23:59 23:59 23:59 Intake Total 350 1100 Output Total 1200 1100 Balance -850 0 Meds/Results Medications: Active Medications Generic Name Dose Route Start Last Admin Trade Name Freq PRN Reason Stop Dose Admin Enoxaparin Sodium 40 mg 04/07/24 09:00 04/07/24 08:40 Enoxaparin 40 Mg/0.4 Ml Syringe SUB-Q 40 mg DAILY DAYNA Administration Famotidine 20 mg 04/06/24 21:00 04/07/24 08:38 Famotidine 20 Mg/2 Ml Vial IV PUSH 20 mg Q12HR DAYNA Administration Lactated Ringer's 1,000 mls @ 100 mls/hr 04/06/24 19:35 04/07/24 08:55 Lr - Lactated Ringers Iv IV CONT 100 mls/hr .Q10H DAYNA Administration Ibuprofen 800 mg in 200 mls @ 400 mls/hr 04/06/24 19:35 04/07/24 08:41 Caldolor 800 Mg/200 Ml IVPB 400 mls/hr Q6H PRN Administration Breakthrough Pain Rated 1-3 or NPO Ceftriaxone Sodium 1 gm in 50 mls @ 100 mls/hr 04/06/24 21:00 04/06/24 20:21 Rocephin 1 Gm/Ns 50 Ml IVPB 100 mls/hr Q24H DAYNA Administration Metronidazole 500 mg in 100 mls @ 100 mls/hr 04/06/24 22:00 04/07/24 13:53 Flagyl 500 Mg/Iso Soln 100 Ml IVPB 100 mls/hr Q8HR DAYNA Administration Morphine Sulfate 1 mg 04/06/24 19:35 Morphine Sulfate (*Crx) 2 Mg/Ml Inj IV PUSH Q2H PRN Breakthrough Pain Rated 4-6 or NPO Morphine Sulfate 2 mg 04/06/24 19:35 Morphine Sulfate (*Crx) 4 Mg/Ml Inj IV PUSH Q2H PRN Breakthrough Pain Rated 7-10 or NPO Naloxone HCl 0.1 mg 04/06/24 19:35 Naloxone Hcl 0.4 Mg/Ml Vial IV PUSH Q2M PRN Opiate Reversal Ondansetron HCl 4 mg 04/06/24 19:35 Ondansetron Inj 4 Mg/2 Ml Vial IV PUSH Q4H PRN Nausea And Vomiting Phenol 1 spray 04/07/24 09:57 Phenol/Sod Pheno [place] (*Bkc) MUCOUS MEM PRN PRN Sore Throat Labs Labs: Laboratory Results - last 24 hr 04/07/24 06:27 WBC 9.1 RBC 4.09 L Hgb 12.3 Hct 38.5 MCV 94.1 MCH 30.1 MCHC 31.9 L RDW 12.5 Plt Count 572 H MPV 9.3 Immature Gran % (Auto) 0.5 Neut % (Auto) 62.7 Lymph % (Auto) 21.2 [place] % (Auto) 15.0 H Eos % (Auto) 0.1 Baso % (Auto) 0.5 Lymph # (Auto) 1.93 [place] # (Auto) 1.4 H Eos # (Auto) 0.0 Baso # (Auto) 0.1 Abs Immat Gran (auto) 0.05 H Absolute Neuts (auto) 5.7 Absolute Nucleated RBC 0.000 Nucleated RBC % 0.0 Sodium 133 L Potassium 3.5 Chloride 98 Carbon Dioxide 23 Anion Gap 12 BUN 18 H Creatinine 0.53 L Estim Creat Clear Calc 83 Estimated GFR > 60 Glucose 88 Calcium 8.3 L Magnesium 1.9
[2024-04-07] MEDS: FAMOTIDINE 20 MG TABLET PO (21:10)
[2024-04-08] MEDS: metroNIDAZOLE 500 MG/ISO 100ML 500 MG/100 ML BAG 100 MG IVPB ×3 (05:19→22:12)
[2024-04-08 05:54] VITALS: BP 125/74; PULSE 98; RESP 18; TEMP 36.4; O2SAT 97
[2024-04-08 07:23] LABS: Basophils Absolute Auto 0.1 K/mm3 (0.0-0.1); Basophils Percent Auto 0.7 % (0.2-1.2); Eosinophils Absolute Auto 0.1 K/mm3 (0-0.3); Eosinophils Percent Auto 0.9 % (0-4.4); Hematocrit 34.2 % (37.0-47.0); Hemoglobin 11.1 g/dL (12.0-15.0); Immature Granulocyte Absolute 0.04 K/mm3 (0.00-0.031); Immature Granulocyte Percent A 0.4 % (0-0.5); Lymphocytes Absolute Auto 2.32 K/mm3 (0.9-3.2); Lymphocytes Percent Auto 23.6 % (18.3-44.2); Mean Corpuscular HGB Conc 32.5 g/dl (32-36); Mean Corpuscular Hemoglobin 30.1 pg (26-34); Mean Corpuscular Volume 92.7 fl (80-100); Mean Platelet Volume 9.6 fl (7.4-10.4); Monocytes Absolute Auto 1.1 K/mm3 (0.1-0.6); Monocytes Percent Auto 10.7 % (2.6-8.5); Neutrophils Absolute Auto 6.3 K/mm3 (1.3-6.7); Neutrophils Percent Auto 63.7 % (45.5-73.1); Platelet Count Result 483 k/mm3 (150-375); Red Blood Count 3.69 M/mm3 (4.2-5.4); Red Cell Distribution Width 12.5 % (11.5-14.5); White Blood Count 9.8 K/mm3 (4.5-10.0)
[2024-04-08 07:39] LABS: Alanine Aminotransferase 11 U/L (6-35); Albumin Level 2.9 g/dL (3.5-5.1); Alkaline Phosphatase 50 U/L (38-126); Anion Gap 6 mmol/L (4-12); Aspartate Amino Transferase 14 U/L (14-36); Bilirubin,Total 0.2 mg/dL (0.2-1.3); Blood Urea Nitrogen 11 mg/dL (7-17); Calcium 7.9 mg/dL (8.4-10.2); Carbon Dioxide 30 mmol/L (22-30); Chloride 97 mmol/L (98-107); Estimated CRCL calculation 89 ml/min; Estimated Glomerular Filt Rate > 60; Glucose 105 mg/dL (65-110); Potassium 3.1 mmol/L (3.4-5.0); Sodium 133 mmol/L (137-145)
[2024-04-08] MEDS: ENOXAPARIN 40 MG/0.4 ML SYRINGE SUB-Q (08:05)
[2024-04-08] MEDS: FAMOTIDINE 20 MG TABLET PO ×2 (08:05→21:11)
[2024-04-08] MEDS: POTASSIUM CHLORIDE 20 MEQ ER TABLET 40 MEQ PO (10:53)
--- NOTE | 2024-04-08 11:44 | P.PNIM_ITS ---
Progress Note: A&P Assessment and Plan (1) Obstruction of colon: Code(s): K56.609 - Unspecified intestinal obstruction, unspecified as to partial versus complete obstruction Status: Acute Assessment and Plan: - CT abd/pelvis: 1. Wall thickening of the sigmoid colon with stricture and bowel obstruction, consistent with chronic diverticulitis or less likely malignancy. 2. Small volume of ascites. - NG placement - started on Ceftriaxone and Flagyl on 04/06 - general surgery consulted, [facility] OR 04/06/24 for ostomy creation, emergent Colostomy is working well draining brown stool. further work up for stricture once patient improved - Diet advanced to regular today. - analgesics and antiemetics p.r.n. - has never underwent a colonoscopy - monitor CBC and electrolytes - GI consult placed by surgery today. (2) Stricture of sigmoid colon: Code(s): K56.699 - Other intestinal obstruction unspecified as to partial versus complete obstruction Status: Inactive Assessment and Plan: - see above (3) Hypokalemia: Code(s): E87.6 - Hypokalemia Status: Acute Assessment and Plan: * Potassium 3.1. * Potassium Chloride 40 meq PO x 1 given. Subjective Date/time seen: 04/08/24 11:44 Interval history: Patient reports doing well today. Family at bedside. Patient denies chest pain, palpitations, headache, dizziness, nausea, vomiting, or abdominal pain. Review of Systems Review of Systems: All systems reviewed & are unremarkable except as noted in HPI and below Exam Const: General: comfortable and no acute distress Resp: Effort & Inspection: normal respiratory effort Auscultation: clear to auscultation bilaterally Cardio: Rate: regular rate Rhythm: regular rhythm GI: GI Palp: Yes Soft to palpation Auscultation: normal bowel sounds Other: Colostomy draining liquid brown stool. Neuro: Speech: normal speech Extrem: General: no pedal edema Psych: Mental Status: mental status grossly normal Affect: normal affect Objective Data Vital Signs Vital Signs: Vital Signs - 24 hr 04/07/24 13:20 04/07/24 18:44 04/07/24 21:10 Temperature 99.8 F H 98.6 F Pulse Rate 96 100 Respiratory Rate 18 18 Blood Pressure 123/77 119/66 Pulse Oximetry 96 94 Oxygen Delivery Room Air 04/07/24 21:20 04/08/24 05:54 04/08/24 08:00 Temperature 97 F L 97.6 F Pulse Rate 95 98 Respiratory Rate 18 18 Blood Pressure 107/65 125/74 Pulse Oximetry 95 97 Oxygen Delivery Room Air Intake/Output Intake/Output: Intake & Output 04/05/24 04/06/24 04/07/24 04/08/24 23:59 23:59 23:59 23:59 Intake Total 400 2810 200 Output Total 1200 1450 300 Balance -800 1360 -100 Meds/Results Medications: Active Medications Generic Name Dose Route Start Last Admin Trade Name Freq PRN Reason Stop Dose Admin Acetaminophen 500 mg 04/07/24 15:09 Acetaminophen 500 Mg Tablet PO Q6H PRN Pain Rated 1-3 Enoxaparin Sodium 40 mg 04/08/24 09:00 04/08/24 08:05 Enoxaparin 40 Mg/0.4 Ml Syringe SUB-Q 40 mg DAILY DAYNA Administration Famotidine 20 mg 04/07/24 21:00 04/08/24 08:05 Famotidine 20 Mg Tablet PO 20 mg Q12HR DAYNA Administration Lactated Ringer's 1,000 mls @ 80 mls/hr 04/06/24 19:35 04/07/24 22:30 Lr - Lactated Ringers Iv IV CONT 100 mls/hr .[id number] DAYNA Administration Ibuprofen 800 mg in 200 mls @ 400 mls/hr 04/06/24 19:35 04/07/24 08:41 Caldolor 800 Mg/200 Ml IVPB 400 mls/hr Q6H PRN Administration Breakthrough Pain Rated 1-3 or NPO Ceftriaxone Sodium 1 gm in 50 mls @ 100 mls/hr 04/06/24 21:00 04/07/24 21:40 Rocephin 1 Gm/Ns 50 Ml IVPB Infused Q24H DAYNA Infusion Metronidazole 500 mg in 100 mls @ 100 mls/hr 04/06/24 22:00 04/08/24 06:19 Flagyl 500 Mg/Iso Soln 100 Ml IVPB Infused Q8HR DAYNA Infusion Morphine Sulfate 1 mg 04/06/24 19:35 Morphine Sulfate (*Crx) 2 Mg/Ml Inj IV PUSH Q2H PRN Breakthrough Pain Rated 4-6 or NPO Morphine Sulfate 2 mg 04/06/24 19:35 Morphine Sulfate (*Crx) 4 Mg/Ml Inj IV PUSH Q2H PRN Breakthrough Pain Rated 7-10 or NPO Naloxone HCl 0.1 mg 04/06/24 19:35 Naloxone Hcl 0.4 Mg/Ml Vial IV PUSH Q2M PRN Opiate Reversal Ondansetron HCl 4 mg 04/06/24 19:35 Ondansetron Inj 4 Mg/2 Ml Vial IV PUSH Q4H PRN Nausea And Vomiting Oxycodone/Acetaminophen 1 tablet 04/07/24 15:09 Oxycodone/Acetaminophen (*Crx) 5-325 Mg Tablet PO Q4H PRN Pain Rated 4-6 Phenol 1 spray 04/07/24 09:57 Phenol/Sod Pheno [place] (*Bkc) MUCOUS MEM PRN PRN Sore Throat Labs Labs: Laboratory Results - last 24 hr 04/08/24 06:55 WBC 9.8 RBC 3.69 L Hgb 11.1 L Hct 34.2 L MCV 92.7 MCH 30.1 MCHC 32.5 RDW 12.5 Plt Count 483 H MPV 9.6 Immature Gran % (Auto) 0.4 Neut % (Auto) 63.7 Lymph % (Auto) 23.6 [place] % (Auto) 10.7 H Eos % (Auto) 0.9 Baso % (Auto) 0.7 Lymph # (Auto) 2.32 [place] # (Auto) 1.1 H Eos # (Auto) 0.1 Baso # (Auto) 0.1 Abs Immat Gran (auto) 0.04 H Absolute Neuts (auto) 6.3 Absolute Nucleated RBC 0.000 Nucleated RBC % 0.0 Sodium 133 L Potassium 3.1 L Chloride 97 L Carbon Dioxide 30 Anion Gap 6 BUN 11 D Creatinine 0.49 L Estim Creat Clear Calc 89 Estimated GFR > 60 Glucose 105 Calcium 7.9 L Total Bilirubin 0.2 AST 14 ALT 11 Alkaline Phosphatase 50 Total Protein 5.0 L Albumin 2.9 L Quality VTE Prophylaxis VTE prophylaxis: mechanical ordered and pharmacologic ordered
[2024-04-08 13:40] VITALS: BP 121/80; PULSE 88; RESP 18; TEMP 37.1; O2SAT 96
--- NOTE | 2024-04-08 14:55 | PM.PNGS ---
Progress Note: A&P Assessment and Plan (1) Obstruction of colon: Code(s): K56.609 - Unspecified intestinal obstruction, unspecified as to partial versus complete obstruction Status: Acute Assessment and Plan: Colonic obstruction relieved with diverting transverse colostomy. Patient eating well and feeling better with less pain. Will advance to regular diet and consult Gastroenterology for at least flexible sigmoidoscopy if not colonoscopy. Supplement potassium which is down to 3.1, most likely due to relief of the obstruction and increase loss of colonic content. Subjective Subjective Date/Time Seen: 04/08/24 14:55 Post Op day: 2 Patient reports: feels better, pain is less, tolerating liquids well, voiding w/o difficulty, bowel movement (Good stoma output) and afebrile Exam Const: General: comfortable and no acute distress Orientation/consciousness: patient oriented x3 GI: Inspection: no abdominal wall ecchymosis, non-distended, obesity and other (Large liquid stool in colostomy bag again today) GI Palp: Yes Soft to palpation, Yes Tenderness to palpation present (GI) (. Stomal tenderness, expected), No Guarding due to palpation present (GI) and No Rebound tenderness present Auscultation: normal bowel sounds Neuro: General: patient oriented x3 and no focal motor deficits Extrem: General: no calf tenderness and no edema Psych: Affect: normal affect Insight: Good insight present (Psych) Judgement: Good judgement present (Psych) Objective Data Vital Signs Vital Signs: Vital Signs - 24 hr 04/07/24 18:44 04/07/24 21:10 04/07/24 21:20 Temperature 37.0 C 36.1 C L Pulse Rate 100 95 Respiratory Rate 18 18 Blood Pressure 119/66 107/65 Pulse Oximetry 94 95 Oxygen Delivery Room Air 04/08/24 05:54 04/08/24 08:00 04/08/24 13:40 Temperature 36.4 C 37.1 C Pulse Rate 98 88 Respiratory Rate 18 18 Blood Pressure 125/74 121/80 Pulse Oximetry 97 96 Oxygen Delivery Room Air Intake/Output Intake/Output: Intake & Output 04/05/24 04/06/24 04/07/24 04/08/24 23:59 23:59 23:59 23:59 Intake Total 400 2810 440 Output Total 1200 1450 300 Balance -800 1360 140 Meds/Results Medications: Active Medications Generic Name Dose Route Start Last Admin Trade Name Freq PRN Reason Stop Dose Admin Acetaminophen 500 mg 04/07/24 15:09 Acetaminophen 500 Mg Tablet PO Q6H PRN Pain Rated 1-3 Enoxaparin Sodium 40 mg 04/08/24 09:00 04/08/24 08:05 Enoxaparin 40 Mg/0.4 Ml Syringe SUB-Q 40 mg DAILY DAYNA Administration Famotidine 20 mg 04/07/24 21:00 04/08/24 08:05 Famotidine 20 Mg Tablet PO 20 mg Q12HR DAYNA Administration Ibuprofen 800 mg in 200 mls @ 400 mls/hr 04/06/24 19:35 04/07/24 08:41 Caldolor 800 Mg/200 Ml IVPB 400 mls/hr Q6H PRN Administration Breakthrough Pain Rated 1-3 or NPO Ceftriaxone Sodium 1 gm in 50 mls @ 100 mls/hr 04/06/24 21:00 04/07/24 21:40 Rocephin 1 Gm/Ns 50 Ml IVPB Infused Q24H DAYNA Infusion Metronidazole 500 mg in 100 mls @ 100 mls/hr 04/06/24 22:00 04/08/24 13:30 Flagyl 500 Mg/Iso Soln 100 Ml IVPB 100 mls/hr Q8HR DAYNA Administration Potassium Chloride/Sodium Chloride 1,000 mls @ 80 mls/hr 04/08/24 14:55 Kcl 40 Meq/Ns IV CONT .[id number] DAYNA Morphine Sulfate 1 mg 04/06/24 19:35 Morphine Sulfate (*Crx) 2 Mg/Ml Inj IV PUSH Q2H PRN Breakthrough Pain Rated 4-6 or NPO Morphine Sulfate 2 mg 04/06/24 19:35 Morphine Sulfate (*Crx) 4 Mg/Ml Inj IV PUSH Q2H PRN Breakthrough Pain Rated 7-10 or NPO Naloxone HCl 0.1 mg 04/06/24 19:35 Naloxone Hcl 0.4 Mg/Ml Vial IV PUSH Q2M PRN Opiate Reversal Ondansetron HCl 4 mg 04/06/24 19:35 Ondansetron Inj 4 Mg/2 Ml Vial IV PUSH Q4H PRN Nausea And Vomiting Oxycodone/Acetaminophen 1 tablet 04/07/24 15:09 Oxycodone/Acetaminophen (*Crx) 5-325 Mg Tablet PO Q4H PRN Pain Rated 4-6 Phenol 1 spray 04/07/24 09:57 Phenol/Sod Pheno [place] (*Bkc) MUCOUS MEM PRN PRN Sore Throat Labs Labs: Laboratory Results - last 24 hr 04/08/24 06:55 WBC 9.8 RBC 3.69 L Hgb 11.1 L Hct 34.2 L MCV 92.7 MCH 30.1 MCHC 32.5 RDW 12.5 Plt Count 483 H MPV 9.6 Immature Gran % (Auto) 0.4 Neut % (Auto) 63.7 Lymph % (Auto) 23.6 [place] % (Auto) 10.7 H Eos % (Auto) 0.9 Baso % (Auto) 0.7 Lymph # (Auto) 2.32 [place] # (Auto) 1.1 H Eos # (Auto) 0.1 Baso # (Auto) 0.1 Abs Immat Gran (auto) 0.04 H Absolute Neuts (auto) 6.3 Absolute Nucleated RBC 0.000 Nucleated RBC % 0.0 Sodium 133 L Potassium 3.1 L Chloride 97 L Carbon Dioxide 30 Anion Gap 6 BUN 11 D Creatinine 0.49 L Estim Creat Clear Calc 89 Estimated GFR > 60 Glucose 105 Calcium 7.9 L Total Bilirubin 0.2 AST 14 ALT 11 Alkaline Phosphatase 50 Total Protein 5.0 L Albumin 2.9 L
[2024-04-08] MEDS: KCL 40 MEQ/0.9% SOD CHL 1,000 ML 80 ML IV CONT (15:48)
[2024-04-08 22:00] VITALS: BP 112/74; PULSE 94; RESP 18; TEMP 36.7; O2SAT 95
[2024-04-09 04:51] VITALS: BP 135/81; PULSE 94; RESP 18; TEMP 36.7; O2SAT 98
[2024-04-09] MEDS: metroNIDAZOLE 500 MG/ISO 100ML 500 MG/100 ML BAG 100 MG IVPB ×3 (05:11→21:23)
[2024-04-09] MEDS: KCL 40 MEQ/0.9% SOD CHL 1,000 ML 80 ML IV CONT ×2 (05:13→20:17)
[2024-04-09 06:38] LABS: Basophils Absolute Auto 0.1 K/mm3 (0.0-0.1); Basophils Percent Auto 0.7 % (0.2-1.2); Eosinophils Absolute Auto 0.2 K/mm3 (0-0.3); Hematocrit 39.2 % (37.0-47.0); Hemoglobin 12.6 g/dL (12.0-15.0); Immature Granulocyte Absolute 0.05 K/mm3 (0.00-0.031); Immature Granulocyte Percent A 0.5 % (0-0.5); Lymphocytes Absolute Auto 2.68 K/mm3 (0.9-3.2); Lymphocytes Percent Auto 27.9 % (18.3-44.2); Mean Corpuscular HGB Conc 32.1 g/dl (32-36); Mean Corpuscular Hemoglobin 29.6 pg (26-34); Mean Corpuscular Volume 92.2 fl (80-100); Mean Platelet Volume 8.8 fl (7.4-10.4); Monocytes Absolute Auto 0.9 K/mm3 (0.1-0.6); Monocytes Percent Auto 8.9 % (2.6-8.5); Neutrophils Absolute Auto 5.8 K/mm3 (1.3-6.7); Platelet Count Result 496 k/mm3 (150-375); Red Blood Count 4.25 M/mm3 (4.2-5.4); Red Cell Distribution Width 12.5 % (11.5-14.5); White Blood Count 9.6 K/mm3 (4.5-10.0)
[2024-04-09 07:01] LABS: Alanine Aminotransferase 12 U/L (6-35); Albumin Level 3.2 g/dL (3.5-5.1); Alkaline Phosphatase 54 U/L (38-126); Anion Gap 7 mmol/L (4-12); Aspartate Amino Transferase 17 U/L (14-36); Bilirubin,Total 0.4 mg/dL (0.2-1.3); Blood Urea Nitrogen 6 mg/dL (7-17); Calcium 8.5 mg/dL (8.4-10.2); Carbon Dioxide 31 mmol/L (22-30); Chloride 101 mmol/L (98-107); Estimated CRCL calculation 96 ml/min; Estimated Glomerular Filt Rate > 60; Glucose 113 mg/dL (65-110); Potassium 4.1 mmol/L (3.4-5.0); Sodium 139 mmol/L (137-145)
--- NOTE | 2024-04-09 07:53 | P.CONGI_ITS ---
Assessment and Plan Assessment and plan (1) Obstruction of colon: Code(s): K56.609 - Unspecified intestinal obstruction, unspecified as to partial versus complete obstruction Status: Acute (2) Colostomy in place: Code(s): Z93.3 - Colostomy status Status: Acute Plan 1. Colon obstruction/colostomy: Patient has never had an EGD or colonoscopy. Family Hx negative for CRC or IBD. Patient transferred from [place] for bowel obstruction. CT on admission showed wall thickening of the sigmoid colon with stricture and bowel obstruction, consistent with chronic diverticulitis or less likely malignancy and small volume of ascites.S/P diverting transverse colostomy performed 04/06/2024. Patient doing well since surgery. NG tube out 2 days ago and she is tolerating PO intake. Normal colostomy output. Surgery recommended GI evaluation for flex sig to further evaluate possible cause of obstruction. Note patient on Lovenox. * continue antibiotics per surgery recs * tap water enema till clear * plan for Flexible sigmoidoscopy today * further recs to follow endoscopy Thank you very much for allowing me to share in the care of this very nice patient. This report may have been done utilizing a voice recognition system. Attempts have been made to correct errors. However, there may be uncorrected grammatical, spelling, and recognition errors present. GI Consult Note Consult date/time: 04/09/24 07:53 Reason for consult: bowel obstruction HPI: This is a 58 year old female with a PMSH of scoliosis, partial hysterectomy and back surgery but otherwise unremarkable medical surgical history. Patient presented to the emergency room in [place] 04/06/2024 and was then transferred to [facility] after being found to have evidence of complete colonic obstruction at the level of the sigmoid colon. Colonic obstruction relieved with diverting transverse colostomy performed 04/[address] Clinton. Patient has recovered well from surgery and has been able to advance her diet so surgery recommended a GI consult for flex sig vs colonoscopy. Patient states that she normally has regular BM's a few times daily in the morning but for a few weeks prior to her admission she was having constipation where she was only having small incomplete BM's. Following her colostomy on the she has been doing well and is having normal loose brown colostomy output. NG tube was removed 2 days ago and patient is tolerating PO intake. Denies abdominal pain, nausea, vomiting, bloating, odynophagia, reflux, regurgitation, early satiety, weight loss, appetite loss, diarrhea, constipation, hematochezia or melena. Social drinker, 1/2 PPD smoker but had been cutting back prior to admission and admits to marijuana use. Denies NSAID, aspirin or anticoag use. Family Hx negative for CRC or IBD. ENDOSCOPY HISTORY: Patient has never had an EGD or colonoscopy LABS AND STOOL STUDIES: LABS 04/09/2024: Sodium 139 potassium 4.1, BUN 6, creatinine 0.4 from, GFR > 60 WBC 10, HGB 13, HCT 39, MCV 92, platelets 196, INR 1.0 2 bilirubin 0.4, AST 17, ALT 12, alkaline phosphatase 54 lipase 26, albumin 3.2 and calcium 8.5 IMAGING: CT abd/pelvis w/contrast 04/06/2024 FINDINGS: The visualized portions of lung bases demonstrate mild atelectasis. No pleural effusion. The heart size is normal. No pericardial effusion. The liver, gallbladder, pancreas, and adrenal glands are normal. The gallbladder is distended. There are cysts in the kidneys measuring up to 11 mm on the right. There is wall thickening of the sigmoid colon with stricture. The colon is distended and stool-filled proximal to this area. The appendix is normal. There are no pathologically enlarged lymph nodes. There is a small volume of ascites. There is levoscoliosis and severe spondylosis of lumbar spine. There is a posterior erik in thoracolumbar spine. IMPRESSION: 1. Wall thickening of the sigmoid colon with stricture and bowel obstruction, consistent with chronic diverticulitis or less likely malignancy. 2. Small volume of ascites. Review of Systems 2 Constitutional: Constitutional: Reports as per HPI ENT: Reports as per HPI Cardiovascular: Cardiovascular: Reports as per HPI, Denies chest pain and Denies dyspnea Respiratory: Respiratory: Denies cough and Denies dyspnea Gastrointestinal: Gastrointestinal: Reports as per HPI Comments: right lower abdomen colostomy Musculoskeletal: Musculoskeletal: Reports as per HPI Integumentary/Breasts: Skin/Breast: Reports as per HPI Psychiatric: Psychiatric: Reports as per HPI Endocrine: Endocrine: Reports no additional endocrine complaints Hematologic/Lymphatic: Hematologic/Lymphatic: Reports no additional hematologic/lymphatic complaints [facility] Past Medical History Medical History Current smoker Scoliosis External hemorrhoids Surgical History Surgical History History of back surgery [facility] Social History Social History Smoking status: Current every day smoker Tobacco type: cigarettes Additional smoking assessment comments: off and on since she was 15 Alcohol intake: current Drinks per week: 6 Substance use: current Substance use type: marijuana Other substance usage details: daily Last use: 03/23/24 Do You Feel Safe in your Home?: Yes Lack of Transportation: YES Lack of Food: Never True Current Housing: I Have Housing Concerned About Future Housing: No Difficulty Paying Gas/Electric Bills: No Difficulty Paying for Meds: No Currently Unemployed: YES Education: Grade School Difficulty w/ Childcare or Family Care: No Spiritual care concerns: No Meds Home Medications and Allergies Home Medications ?Medication ?Instructions ?Recorded ?Confirmed ?Type rhubarb root extract 4 mg tablet See Rx Instructions PO DAILY@1600 04/06/24 04/06/24 History ([place] Complete Menopause Relief) Allergies Allergy/AdvReac Type Severity Reaction Status Date / Time No Known Allergies Allergy Verified 04/06/24 10:55 Vital Signs Vital Signs - 24 hr 04/08/24 08:00 04/08/24 13:40 04/08/24 21:11 Temperature 98.7 F Pulse Rate 88 Respiratory Rate 18 Blood Pressure 121/80 Pulse Oximetry 96 Oxygen Delivery Room Air Room Air 04/08/24 22:00 04/09/24 04:51 Temperature 98.1 F 98.1 F Pulse Rate 94 94 Respiratory Rate 18 18 Blood Pressure 112/74 135/81 Pulse Oximetry 95 98 Oxygen Delivery Exam 2 Const: General: cooperative, healthy appearing, comfortable, no acute distress and well developed Orientation/consciousness: oriented to person, oriented to place, oriented to time and patient oriented x3 HENMT: Head: normal to inspection, normocephalic and atraumatic Mouth: Yes Normal oral and palatal mucosa present and Yes moist mucous membranes Eyes: General: appearance normal, both eyes and all related structures C onjunctivae: conjunctivae normal Sclera: sclerae normal Pupils: Equal, round and reactive pupils present Neck: Neck: normal visual inspection Chest: Chest palpation & inspection: normal inspection of the chest Resp: Effort & Inspection: normal respiratory effort and able to speak in complete sentences Auscultation: clear to auscultation bilaterally Cardio: Jugular venous distension: no JVD Rate: regular rate Rhythm: r egular rhythm Heart sounds: S1 normal heart sound present and S2 normal heart sound present GI: Inspection: normal to inspection (right lower abd colostomy without site irritation or leakage. ) GI Palp: Yes Soft to palpation, No Firmness to palpation present (GI), No Tenderness to palpation present (GI), No Guarding due to palpation present (GI) and Yes No hepatosplenomegaly present Auscultation: normal bowel sounds Rectal Exam: deferred Skin: General skin exam: normal color and no rashes or lesions noted Neuro: General: oriented to person, oriented to place, oriented to time and patient oriented x3 Cranial nerves: Yes Equal, round and reactive pupils present Speech: normal speech Extrem: General: normal to inspection and no clubbing, cyanosis or edema Psych: Appearance: grossly normal and well kempt Affect: normal affect Results Labs 04/09/24 06:33 04/09/24 06:33 Labs: Short CBC 04/09/24 Range/Units 06:33 WBC 9.6 (4.5-10.0) K/mm3 Hgb 12.6 (12.0-15.0) g/dL Hct 39.2 (37.0-47.0) % Plt Count 496 H (150-375) k/mm3 BMP 04/09/24 06:33 Sodium 139 Potassium 4.1 Chloride 101 Carbon Dioxide 31 H BUN 6 L D Creatinine 0.45 L Glucose 113 H Calcium 8.5 Liver Function 04/09/24 Range/Units 06:33 Total Bilirubin 0.4 (0.2-1.3) mg/dL AST 17 (14-36) U/L ALT 12 (6-35) U/L Alkaline Phosphatase 54 (38-126) U/L Albumin 3.2 L (3.5-5.1) g/dL
[2024-04-09] MEDS: FAMOTIDINE 20 MG TABLET PO ×2 (08:51→20:24)
[2024-04-09] MEDS: ENOXAPARIN 40 MG/0.4 ML SYRINGE SUB-Q (08:51)
--- NOTE | 2024-04-09 11:43 | PCNFU ---
Nutrition Follow-Up Complete: Inadequate energy intake related to NPO status and altered GI function as evidenced by current diet order Goal:Diet order PO intake with tolerance. Pt meeting both goals Pt current nutrition is Regular, intake 75-100%. Nutrition recommendation: Ensure Enlive BID for an additional 350kcals, 20g protein per shake Last recorded weight is 55 kg. Bowel Motility: +BM 3/3 Labs Reviewed: BUN:, Cr:0.45, Glu:113 Meds Noted: KCL Skin: WNL Additional Notes: Pt diet advanced to regular, pt tolerating well, intake good. Pt did report some weight loss prior to coming in, agreeable to Ensure Enlive BID to supplement. Monitor diet orders, intake, tolerance, wt, labs. Follow up in 7 days.
--- NOTE | 2024-04-09 11:58 | P.PNGS_ITS ---
Progress Note: A&P Assessment and Plan (1) Obstruction of colon: Code(s): K56.609 - Unspecified intestinal obstruction, unspecified as to partial versus complete obstruction Status: Acute Assessment and Plan: Colonic obstruction relieved with diverting transverse colostomy. Ostomy functioning well and tolerating a diet. GI has been consulted for at least a flexible sigmoidoscopy or colonoscopy. Potassium up to 4.1 today after IV replacement. Will consult with the wound care nurses to have them irrigate the ostomy prior to endoscopy in addition to prep. Plan I have discussed the patient's case and plan of care with Dr. Clinton. Subjective Subjective Date/Time Seen: 04/09/24 11:59 Post Op day: 3 (Creation diverting transverse colostomy) Patient reports: no new complaints, tolerating a regular diet, bowel movement (ostomy functioning) and afebrile Exam Const: General: comfortable and no acute distress GI: Inspection: non-distended and other (ostomy with stool in bag, stoma pink) GI Palp: Yes Soft to palpation, No Tenderness to palpation present (GI), No Guarding due to palpation present (GI) and No Rebound tenderness present Auscultation: normal bowel sounds Objective Data Vital Signs Vital Signs: Vital Signs - 24 hr 04/08/24 13:40 04/08/24 21:11 04/08/24 22:00 Temperature 98.7 F 98.1 F Pulse Rate 88 94 Respiratory Rate 18 18 Blood Pressure 121/80 112/74 Pulse Oximetry 96 95 Oxygen Delivery Room Air 04/09/24 04:51 Temperature 98.1 F Pulse Rate 94 Respiratory Rate 18 Blood Pressure 135/81 Pulse Oximetry 98 Oxygen Delivery Intake/Output Intake/Output: Intake & Output 04/06/24 04/07/24 04/08/24 04/09/24 23:59 23:59 23:59 23:59 Intake Total 400 2810 1090 1590 Output Total 1200 1450 300 175 Balance -800 5624 907 3294 Meds/Results Medications: Active Medications Generic Name Dose Route Start Last Admin Trade Name Freq PRN Reason Stop Dose Admin Acetaminophen 500 mg 04/07/24 15:09 Acetaminophen 500 Mg Tablet PO Q6H PRN Pain Rated 1-3 Enoxaparin Sodium 40 mg 04/08/24 09:00 04/09/24 08:51 Enoxaparin 40 Mg/0.4 Ml Syringe SUB-Q 40 mg DAILY DAYNA Administration Famotidine 20 mg 04/07/24 21:00 04/09/24 08:51 Famotidine 20 Mg Tablet PO 20 mg Q12HR DAYNA Administration Ibuprofen 800 mg in 200 mls @ 400 mls/hr 04/06/24 19:35 04/07/24 08:41 Caldolor 800 Mg/200 Ml IVPB 400 mls/hr Q6H PRN Administration Breakthrough Pain Rated 1-3 or NPO Ceftriaxone Sodium 1 gm in 50 mls @ 100 mls/hr 04/06/24 21:00 04/08/24 21:42 Rocephin 1 Gm/Ns 50 Ml IVPB Infused Q24H DAYNA Infusion Metronidazole 500 mg in 100 mls @ 100 mls/hr 04/06/24 22:00 04/09/24 05:11 Flagyl 500 Mg/Iso Soln 100 Ml IVPB 100 mls/hr Q8HR DAYNA Administration Potassium Chloride/Sodium Chloride 1,000 mls @ 80 mls/hr 04/08/24 15:30 04/09/24 05:13 Kcl 40 Meq/Ns IV CONT 80 mls/hr .[id number] DAYNA Administration Morphine Sulfate 1 mg 04/06/24 19:35 Morphine Sulfate (*Crx) 2 Mg/Ml Inj IV PUSH Q2H PRN Breakthrough Pain Rated 4-6 or NPO Morphine Sulfate 2 mg 04/06/24 19:35 Morphine Sulfate (*Crx) 4 Mg/Ml Inj IV PUSH Q2H PRN Breakthrough Pain Rated 7-10 or NPO Naloxone HCl 0.1 mg 04/06/24 19:35 Naloxone Hcl 0.4 Mg/Ml Vial IV PUSH Q2M PRN Opiate Reversal Ondansetron HCl 4 mg 04/06/24 19:35 Ondansetron Inj 4 Mg/2 Ml Vial IV PUSH Q4H PRN Nausea And Vomiting Oxycodone/Acetaminophen 1 tablet 04/07/24 15:09 Oxycodone/Acetaminophen (*Crx) 5-325 Mg Tablet PO Q4H PRN Pain Rated 4-6 Phenol 1 spray 04/07/24 09:57 Phenol/Sod Pheno [place] (*Bkc) MUCOUS MEM PRN PRN Sore Throat Labs Labs: Laboratory Results - last 24 hr 04/09/24 06:33 WBC 9.6 RBC 4.25 Hgb 12.6 Hct 39.2 MCV 92.2 MCH 29.6 MCHC 32.1 RDW 12.5 Plt Count 496 H MPV 8.8 Immature Gran % (Auto) 0.5 Neut % (Auto) 60.0 Lymph % (Auto) 27.9 [place] % (Auto) 8.9 H Eos % (Auto) 2.0 Baso % (Auto) 0.7 Lymph # (Auto) 2.68 [place] # (Auto) 0.9 H Eos # (Auto) 0.2 Baso # (Auto) 0.1 Abs Immat Gran (auto) 0.05 H Absolute Neuts (auto) 5.8 Absolute Nucleated RBC 0.000 Nucleated RBC % 0.0 Sodium 139 Potassium 4.1 Chloride 101 Carbon Dioxide 31 H Anion Gap 7 BUN 6 L D Creatinine 0.45 L Estim Creat Clear Calc 96 Estimated GFR > 60 Glucose 113 H Calcium 8.5 Total Bilirubin 0.4 AST 17 ALT 12 Alkaline Phosphatase 54 Total Protein 6.0 L Albumin 3.2 L
--- NOTE | 2024-04-09 12:42 | P.PNIM_ITS ---
Progress Note: A&P Assessment and Plan (1) Obstruction of colon: Code(s): K56.609 - Unspecified intestinal obstruction, unspecified as to partial versus complete obstruction Status: Acute Assessment and Plan: - CT abd/pelvis: 1. Wall thickening of the sigmoid colon with stricture and bowel obstruction, consistent with chronic diverticulitis or less likely malignancy. 2. Small volume of ascites. - NG placement - started on Ceftriaxone and Flagyl on 04/06 - general surgery consulted, [facility] OR 04/06/24 for ostomy creation, emergent Colostomy is working well draining brown stool. further work up for stricture once patient improved - Diet advanced to regular today. - analgesics and antiemetics p.r.n. - has never underwent a colonoscopy - monitor CBC and electrolytes - GI consulted by surgery. Plan for flexible sigmoidoscopy. (2) Stricture of sigmoid colon: Code(s): K56.699 - Other intestinal obstruction unspecified as to partial versus complete obstruction Status: Inactive Assessment and Plan: - see above (3) Hypokalemia: Code(s): E87.6 - Hypokalemia Status: Acute Assessment and Plan: * Potassium 4.1. * NS + 40 meq KCL @ 80 ml/hr. * Monitor levels. Subjective Date/time seen: 04/09/24 12:42 Interval history: Patient denies any abdominal pain, palpitations, shortness of breath, headache, dizziness, nausea, or vomiting. Patient reports that she has been given alot of information and her head feels like a whirl wind trying to take it all in. Family at bedside. Review of Systems Review of Systems: All systems reviewed & are unremarkable except as noted in HPI and below Exam Const: General: comfortable and no acute distress Resp: Effort & Inspection: normal respiratory effort Auscultation: clear to auscultation bilaterally Cardio: Rate: regular rate Rhythm: regular rhythm GI: GI Palp: Yes Soft to palpation Auscultation: normal bowel sounds Other: Colostomy draining liquid brown stool, pink stoma. Neuro: Speech: normal speech Extrem: General: no pedal edema Psych: Mental Status: mental status grossly normal Affect: normal affect Objective Data Vital Signs Vital Signs: Vital Signs - 24 hr 04/08/24 13:40 04/08/24 21:11 04/08/24 22:00 Temperature 98.7 F 98.1 F Pulse Rate 88 94 Respiratory Rate 18 18 Blood Pressure 121/80 112/74 Pulse Oximetry 96 95 Oxygen Delivery Room Air 04/09/24 04:51 Temperature 98.1 F Pulse Rate 94 Respiratory Rate 18 Blood Pressure 135/81 Pulse Oximetry 98 Oxygen Delivery Intake/Output Intake/Output: Intake & Output 04/06/24 04/07/24 04/08/24 04/09/24 23:59 23:59 23:59 23:59 Intake Total 400 2810 1090 1590 Output Total 1200 1450 300 175 Balance -800 5712 988 3227 Meds/Results Medications: Active Medications Generic Name Dose Route Start Last Admin Trade Name Freq PRN Reason Stop Dose Admin Acetaminophen 500 mg 04/07/24 15:09 Acetaminophen 500 Mg Tablet PO Q6H PRN Pain Rated 1-3 Enoxaparin Sodium 40 mg 04/08/24 09:00 04/09/24 08:51 Enoxaparin 40 Mg/0.4 Ml Syringe SUB-Q 40 mg DAILY DAYNA Administration Famotidine 20 mg 04/07/24 21:00 04/09/24 08:51 Famotidine 20 Mg Tablet PO 20 mg Q12HR DAYNA Administration Ibuprofen 800 mg in 200 mls @ 400 mls/hr 04/06/24 19:35 04/07/24 08:41 Caldolor 800 Mg/200 Ml IVPB 400 mls/hr Q6H PRN Administration Breakthrough Pain Rated 1-3 or NPO Ceftriaxone Sodium 1 gm in 50 mls @ 100 mls/hr 04/06/24 21:00 04/08/24 21:42 Rocephin 1 Gm/Ns 50 Ml IVPB Infused Q24H DAYNA Infusion Metronidazole 500 mg in 100 mls @ 100 mls/hr 04/06/24 22:00 04/09/24 05:11 Flagyl 500 Mg/Iso Soln 100 Ml IVPB 100 mls/hr Q8HR DAYNA Administration Potassium Chloride/Sodium Chloride 1,000 mls @ 80 mls/hr 04/08/24 15:30 04/09/24 05:13 Kcl 40 Meq/Ns IV CONT 80 mls/hr .[id number] DAYNA Administration Morphine Sulfate 1 mg 04/06/24 19:35 Morphine Sulfate (*Crx) 2 Mg/Ml Inj IV PUSH Q2H PRN Breakthrough Pain Rated 4-6 or NPO Morphine Sulfate 2 mg 04/06/24 19:35 Morphine Sulfate (*Crx) 4 Mg/Ml Inj IV PUSH Q2H PRN Breakthrough Pain Rated 7-10 or NPO Naloxone HCl 0.1 mg 04/06/24 19:35 Naloxone Hcl 0.4 Mg/Ml Vial IV PUSH Q2M PRN Opiate Reversal Ondansetron HCl 4 mg 04/06/24 19:35 Ondansetron Inj 4 Mg/2 Ml Vial IV PUSH Q4H PRN Nausea And Vomiting Oxycodone/Acetaminophen 1 tablet 04/07/24 15:09 Oxycodone/Acetaminophen (*Crx) 5-325 Mg Tablet PO Q4H PRN Pain Rated 4-6 Phenol 1 spray 04/07/24 09:57 Phenol/Sod Pheno [place] (*Bkc) MUCOUS MEM PRN PRN Sore Throat Labs Labs: Laboratory Results - last 24 hr 04/09/24 06:33 WBC 9.6 RBC 4.25 Hgb 12.6 Hct 39.2 MCV 92.2 MCH 29.6 MCHC 32.1 RDW 12.5 Plt Count 496 H MPV 8.8 Immature Gran % (Auto) 0.5 Neut % (Auto) 60.0 Lymph % (Auto) 27.9 [place] % (Auto) 8.9 H Eos % (Auto) 2.0 Baso % (Auto) 0.7 Lymph # (Auto) 2.68 [place] # (Auto) 0.9 H Eos # (Auto) 0.2 Baso # (Auto) 0.1 Abs Immat Gran (auto) 0.05 H Absolute Neuts (auto) 5.8 Absolute Nucleated RBC 0.000 Nucleated RBC % 0.0 Sodium 139 Potassium 4.1 Chloride 101 Carbon Dioxide 31 H Anion Gap 7 BUN 6 L D Creatinine 0.45 L Estim Creat Clear Calc 96 Estimated GFR > 60 Glucose 113 H Calcium 8.5 Total Bilirubin 0.4 AST 17 ALT 12 Alkaline Phosphatase 54 Total Protein 6.0 L Albumin 3.2 L Quality VTE Prophylaxis VTE prophylaxis: mechanical ordered and pharmacologic ordered
[2024-04-09 14:00] VITALS: BP 108/78; PULSE 91; RESP 18; TEMP 36.8; O2SAT 100
[2024-04-09 22:00] VITALS: BP 117/75; PULSE 82; RESP 18; TEMP 36.7; O2SAT 97
[2024-04-10] VITALS (8 sets, daily range): BP systolic 87–139; BP diastolic 51–87; PULSE 68–92; RESP 16–20; TEMP 36.2–36.8; O2SAT 98–100
[2024-04-10] MEDS: metroNIDAZOLE 500 MG/ISO 100ML 500 MG/100 ML BAG 100 MG IVPB ×3 (05:45→21:48)
[2024-04-10 07:24] LABS: Basophils Absolute Auto 0.1 K/mm3 (0.0-0.1); Basophils Percent Auto 1.2 % (0.2-1.2); Eosinophils Absolute Auto 0.2 K/mm3 (0-0.3); Eosinophils Percent Auto 2.6 % (0-4.4); Hematocrit 37.6 % (37.0-47.0); Hemoglobin 11.8 g/dL (12.0-15.0); Immature Granulocyte Absolute 0.06 K/mm3 (0.00-0.031); Immature Granulocyte Percent A 0.6 % (0-0.5); Lymphocytes Absolute Auto 3.01 K/mm3 (0.9-3.2); Lymphocytes Percent Auto 32.4 % (18.3-44.2); Mean Corpuscular HGB Conc 31.4 g/dl (32-36); Mean Corpuscular Hemoglobin 29.7 pg (26-34); Mean Corpuscular Volume 94.7 fl (80-100); Mean Platelet Volume 9.3 fl (7.4-10.4); Monocytes Percent Auto 10.2 % (2.6-8.5); Neutrophils Absolute Auto 4.9 K/mm3 (1.3-6.7); Platelet Count Result 460 k/mm3 (150-375); Red Blood Count 3.97 M/mm3 (4.2-5.4); Red Cell Distribution Width 12.5 % (11.5-14.5); White Blood Count 9.3 K/mm3 (4.5-10.0)
[2024-04-10 07:32] LABS: Alanine Aminotransferase 14 U/L (6-35); Alkaline Phosphatase 48 U/L (38-126); Anion Gap 6 mmol/L (4-12); Aspartate Amino Transferase 21 U/L (14-36); Bilirubin,Total 0.4 mg/dL (0.2-1.3); Blood Urea Nitrogen 8 mg/dL (7-17); Calcium 8.6 mg/dL (8.4-10.2); Carbon Dioxide 29 mmol/L (22-30); Chloride 102 mmol/L (98-107); Estimated CRCL calculation 94 ml/min; Estimated Glomerular Filt Rate > 60; Glucose 104 mg/dL (65-110); Potassium 4.4 mmol/L (3.4-5.0); Sodium 137 mmol/L (137-145)
[2024-04-10] MEDS: FAMOTIDINE 20 MG TABLET PO ×2 (08:22→21:12)
[2024-04-10] MEDS: ENOXAPARIN 40 MG/0.4 ML SYRINGE SUB-Q (08:22)
--- NOTE | 2024-04-10 09:07 | PC.NURSE ---
To GI Lab per [ ], IV [ ]. Report given to [STACI].
[2024-04-10 09:33] LABS: Magnesium 1.5 mg/dL (1.6-2.3)
--- NOTE | 2024-04-10 09:40 | WPDANESEPPF ---
Anes - Initial Pre Proc Eval Procedure: Operation Date: 04/06/24 16:00 Proposed Procedures p Diverting Transverse Colostomy - Nic Clinton MD Operation Date: 04/10/24 15:00 Proposed Procedures p Flexible Sigmoidoscopy - Jono Smith MD Date/Time: 04/10/24 09:40 Surgeon: Glenn Zepeda MD Pre Op Diagnosis: Obstruction of Colon Patient Data Age: 58 Gender: F Height: 1.65 m Weight: 55 kg Last Vital Signs Temp 36.8 C 04/10/24 06:00 Pulse 84 04/10/24 06:00 Resp 16 04/10/24 06:00 BP 120/76 04/10/24 06:00 Pulse Ox 100 04/10/24 06:00 O2 Del Method Room Air 04/09/24 20:17 O2 Flow Rate 10 04/06/24 18:30 Allergies Allergy/AdvReac Type Severity Reaction Status Date / Time No Known Allergies Allergy Verified 04/06/24 10:55 Home Medications ?Medication ?Instructions ?Recorded ?Confirmed ?Type rhubarb root extract 4 mg tablet See Rx Instructions PO DAILY@1600 04/06/24 04/06/24 History ([place]ro[place] Complete Menopause Relief) Laboratory Tests 04/10/24 04/10/24 07:09 07:10 WBC 9.3 K/mm3 (4.5-10.0) RBC 3.97 L M/mm3 (4.2-5.4) Hgb 11.8 L g/dL (12.0-15.0) Hct 37.6 % (37.0-47.0) MCV 94.7 fl (80-100) MCH 29.7 pg (26-34) MCHC 31.4 L g/dl (32-36) RDW 12.5 % (11.5-14.5) Plt Count 460 H k/mm3 (150-375) MPV 9.3 fl (7.4-10.4) Immature Gran % (Auto) 0.6 H % (0-0.5) Neut % (Auto) 53.0 % (45.5-73.1) Lymph % (Auto) 32.4 % (18.3-44.2) [place] % (Auto) 10.2 H % (2.6-8.5) Eos % (Auto) 2.6 % (0-4.4) Baso % (Auto) 1.2 % (0.2-1.2) Lymph # (Auto) 3.01 K/mm3 (0.9-3.2) [place] # (Auto) 1.0 H K/mm3 (0.1-0.6) Eos # (Auto) 0.2 K/mm3 (0-0.3) Baso # (Auto) 0.1 K/mm3 (0.0-0.1) Abs Immat Gran (auto) 0.06 H K/mm3 (0.00-0.031) Absolute Neuts (auto) 4.9 K/mm3 (1.3-6.7) Absolute Nucleated RBC 0.000 K/mm3 (0.0-0.012) Nucleated RBC % 0.0 % (0.0-0.2) Sodium 137 mmol/L (137-145) Potassium 4.4 mmol/L (3.4-5.0) Chloride 102 mmol/L (98-107) Carbon Dioxide 29 mmol/L (22-30) Anion Gap 6 mmol/L (4-12) BUN 8 mg/dL (7-17) Creatinine 0.46 L mg/dL (0.7-1.0) Estim Creat Clear Calc 94 ml/min Estimated GFR > 60 (59 - ) Glucose 104 mg/dL (65-110) Calcium 8.6 mg/dL (8.4-10.2) Magnesium 1.5 L mg/dL (1.6-2.3) Total Bilirubin 0.4 mg/dL (0.2-1.3) AST 21 U/L (14-36) ALT 14 U/L (6-35) Alkaline Phosphatase 48 U/L (38-126) Total Protein 6.0 L g/dL (6.3-8.2) Albumin 3.0 L g/dL (3.5-5.1) Patient hx anesthesia problems: none Family hx anesthesia problems: none Results Review: All pre-operative results and documents have been reviewed as part of the pre-operative evaluation. FORMERLY [facility], [facility] Past Medical History Medical History Current smoker Scoliosis External hemorrhoids Surgical History Surgical History History of back surgery Jamal Valencia Social History Social History Smoking status: Current every day smoker Tobacco type: cigarettes Additional smoking assessment comments: off and on since she was 15 Alcohol intake: current Drinks per week: 6 Substance use: current Substance use type: marijuana Other substance usage details: daily Last use: 03/23/24 Do You Feel Safe in your Home?: Yes Lack of Transportation: YES Lack of Food: Never True Current Housing: I Have Housing Concerned About Future Housing: No Difficulty Paying Gas/Electric Bills: No Difficulty Paying for Meds: No Currently Unemployed: YES Education: Grade School Difficulty w/ Childcare or Family Care: No Spiritual care concerns: No Anes - Eval Final PreProcedure Day of Procedure 04/10/24 09:40 Patient weight: normal Heart: regular rate and rhythm Lungs: clear to auscultation Airway: Mallampati scale class 1 and special considerations poor dentition Neurological: alert and oriented Last oral intake: >/= 8 hours ASA classification: III Emergent: no Anesthetic plan: proceed Anesthesia type and monitoring: general GIVS and standard monitoring Results Review: All pre-operative results and documents have been reviewed as part of the pre-operative evaluation. Informed Consent: The patient's anesthetic plan and its attendant risks and benefits were discussed with the patient/family/POA. Questions were solicited and answers provided to the satisfaction of the patient/family/POA.
[2024-04-10] MEDS: LACTATED RINGERS 1,000 ML 150 ML IV CONT (09:59)
--- NOTE | 2024-04-10 10:34 | PC.NURSE ---
Returned from GI Lab. Report received from [Claudine ].
[2024-04-10] MEDS: MAGNESIUM SULF 2 GM/WATER 50ML 2 GM/50 ML BAG IVPB (11:35)
--- NOTE | 2024-04-10 11:59 | P.PNIM_ITS ---
Progress Note: A&P Assessment and Plan (1) Obstruction of colon: Code(s): K56.609 - Unspecified intestinal obstruction, unspecified as to partial versus complete obstruction Status: Acute Assessment and Plan: - CT abd/pelvis: 1. Wall thickening of the sigmoid colon with stricture and bowel obstruction, consistent with chronic diverticulitis or less likely malignancy. 2. Small volume of ascites. - NG placement - started on Ceftriaxone and Flagyl on 04/06 - general surgery consulted, [facility]LE OR 04/06/24 for ostomy creation, emergent Colostomy is working well draining brown stool. further work up for stricture once patient improved - Diet advanced to regular today. - analgesics and antiemetics p.r.n. - has never underwent a colonoscopy - monitor CBC and electrolytes - GI consulted by surgery. - Flex Sigmoidoscopy today showed 2 polyps in the sigmoid colon with polypectomy and benign-appearing stenosis that was able to be traversed, and diverticulosis. (2) Stricture of sigmoid colon: Code(s): K56.699 - Other intestinal obstruction unspecified as to partial versus complete obstruction Status: Inactive Assessment and Plan: - see above (3) Hypokalemia: Code(s): E87.6 - Hypokalemia Status: Acute Assessment and Plan: * Potassium 4.4. * Monitor levels. (4) Hypomagnesemia: Code(s): E83.42 - Hypomagnesemia Status: Acute Assessment and Plan: * Magnesium 1.5. * Magnesium Sulfate 2 gram IVPB x 1. * Monitor levels. Subjective Date/time seen: 04/10/24 11:59 Interval history: Patient denies any abdominal pain, palpitations, shortness of breath, headache, dizziness, nausea, or vomiting. Family at bedside. Review of Systems Review of Systems: All systems reviewed & are unremarkable except as noted in HPI and below Exam Const: General: comfortable and no acute distress Resp: Effort & Inspection: normal respiratory effort Auscultation: clear to auscultation bilaterally Cardio: Rate: regular rate Rhythm: regular rhythm GI: GI Palp: Yes Soft to palpation Auscultation: normal bowel sounds Other: Colostomy draining liquid brown stool, pink stoma. Neuro: Speech: normal speech Extrem: General: no pedal edema Psych: Mental Status: mental status grossly normal Affect: normal affect Objective Data Vital Signs Vital Signs: Vital Signs - 24 hr 04/09/24 14:00 04/09/24 20:17 04/09/24 22:00 Temperature 98.3 F 98.0 F Pulse Rate 91 82 Respiratory Rate 18 18 Blood Pressure 108/78 117/75 Pulse Oximetry 100 97 Oxygen Delivery Room Air 04/10/24 06:00 04/10/24 10:00 04/10/24 10:17 Temperature 98.2 F 98.1 F Pulse Rate 84 68 78 Respiratory Rate 16 18 19 Blood Pressure 120/76 120/78 87/51 L Pulse Oximetry 100 100 98 Oxygen Delivery Room Air Room Air 04/10/24 10:27 04/10/24 10:37 Temperature Pulse Rate 87 87 Respiratory Rate 20 20 Blood Pressure 114/63 114/75 Pulse Oximetry 98 98 Oxygen Delivery Room Air Room Air Intake/Output Intake/Output: Intake & Output 04/07/24 04/08/24 04/09/24 04/10/24 23:59 23:59 23:59 23:59 Intake Total 2810 1090 3420 500.0 Output Total 1450 300 178 Balance 0053 400 9384 500.0 Meds/Results Medications: Active Medications Generic Name Dose Route Start Last Admin Trade Name Freq PRN Reason Stop Dose Admin Acetaminophen 500 mg 04/07/24 15:09 Acetaminophen 500 Mg Tablet PO Q6H PRN Pain Rated 1-3 Enoxaparin Sodium 40 mg 04/08/24 09:00 04/10/24 08:22 Enoxaparin 40 Mg/0.4 Ml Syringe SUB-Q 40 mg DAILY DAYNA Administration Famotidine 20 mg 04/07/24 21:00 04/10/24 08:22 Famotidine 20 Mg Tablet PO 20 mg Q12HR DAYNA Administration Ibuprofen 800 mg in 200 mls @ 400 mls/hr 04/06/24 19:35 04/07/24 08:41 Caldolor 800 Mg/200 Ml IVPB 400 mls/hr Q6H PRN Administration Breakthrough Pain Rated 1-3 or NPO Ceftriaxone Sodium 1 gm in 50 mls @ 100 mls/hr 04/06/24 21:00 04/09/24 20:51 Rocephin 1 Gm/Ns 50 Ml IVPB Infused Q24H DAYNA Infusion Metronidazole 500 mg in 100 mls @ 100 mls/hr 04/06/24 22:00 04/10/24 06:45 Flagyl 500 Mg/Iso Soln 100 Ml IVPB Infused Q8HR DAYNA Infusion Potassium Chloride/Sodium Chloride 1,000 mls @ 80 mls/hr 04/08/24 15:30 04/09/24 20:17 Kcl 40 Meq/Ns IV CONT 80 mls/hr .[id number] DAYNA Administration Morphine Sulfate 1 mg 04/06/24 19:35 Morphine Sulfate (*Crx) 2 Mg/Ml Inj IV PUSH Q2H PRN Breakthrough Pain Rated 4-6 or NPO Morphine Sulfate 2 mg 04/06/24 19:35 Morphine Sulfate (*Crx) 4 Mg/Ml Inj IV PUSH Q2H PRN Breakthrough Pain Rated 7-10 or NPO Naloxone HCl 0.1 mg 04/06/24 19:35 Naloxone Hcl 0.4 Mg/Ml Vial IV PUSH Q2M PRN Opiate Reversal Ondansetron HCl 4 mg 04/06/24 19:35 Ondansetron Inj 4 Mg/2 Ml Vial IV PUSH Q4H PRN Nausea And Vomiting Oxycodone/Acetaminophen 1 tablet 04/07/24 15:09 Oxycodone/Acetaminophen (*Crx) 5-325 Mg Tablet PO Q4H PRN Pain Rated 4-6 Phenol 1 spray 04/07/24 09:57 Phenol/Sod Pheno [place] (*Bkc) MUCOUS MEM PRN PRN Sore Throat Labs Labs: Laboratory Results - last 24 hr 04/10/24 04/10/24 07:09 07:10 WBC 9.3 RBC 3.97 L Hgb 11.8 L Hct 37.6 MCV 94.7 MCH 29.7 MCHC 31.4 L RDW 12.5 Plt Count 460 H MPV 9.3 Immature Gran % (Auto) 0.6 H Neut % (Auto) 53.0 Lymph % (Auto) 32.4 [place] % (Auto) 10.2 H Eos % (Auto) 2.6 Baso % (Auto) 1.2 Lymph # (Auto) 3.01 [place] # (Auto) 1.0 H Eos # (Auto) 0.2 Baso # (Auto) 0.1 Abs Immat Gran (auto) 0.06 H Absolute Neuts (auto) 4.9 Absolute Nucleated RBC 0.000 Nucleated RBC % 0.0 Sodium 137 Potassium 4.4 Chloride 102 Carbon Dioxide 29 Anion Gap 6 BUN 8 Creatinine 0.46 L Estim Creat Clear Calc 94 Estimated GFR > 60 Glucose 104 Calcium 8.6 Magnesium 1.5 L Total Bilirubin 0.4 AST 21 ALT 14 Alkaline Phosphatase 48 Total Protein 6.0 L Albumin 3.0 L Quality VTE Prophylaxis VTE prophylaxis: mechanical ordered and pharmacologic ordered
--- NOTE | 2024-04-10 12:59 | P.PNGS_ITS ---
Progress Note: A&P Assessment and Plan (1) Obstruction of colon: Code(s): K56.609 - Unspecified intestinal obstruction, unspecified as to partial versus complete obstruction Status: Acute Assessment and Plan: Colonic obstruction relieved with diverting transverse colostomy. Flex sigmoidoscopy showed 2 polyps in the sigmoid colon with polypectomy and benign- appearing stenosis that was able to be traversed, and diverticulosis. Will advance her diet as tolerated and stop her IV fluids. Patient could possibly discharge home tomorrow if she continues to improve. Plan I have discussed the patient's case and plan of care with Dr. Clinton. Subjective Subjective Date/Time Seen: 04/10/24 12:59 Post Op day: 4 (Creation diverting transverse colostomy) Patient reports: no new complaints Interval history: Denies any abdominal pain, nausea or vomiting. She is tolerating liquids following her EGD. No specific complaints at this time. Wound care nurses educated the patient today on ostomy care. Exam Const: General: comfortable and no acute distress GI: Inspection: non-distended and other (less distended) GI Palp: Yes Soft to palpation, No Tenderness to palpation present (GI), No Guarding due to palpation present (GI) and No Rebound tenderness present Auscultation: normal bowel sounds Other: transverse colostomy functioning well with liquid brown stool in bag, stoma pink/viable Objective Data Vital Signs Vital Signs: Vital Signs - 24 hr 04/09/24 14:00 04/09/24 20:17 04/09/24 22:00 Temperature 98.3 F 98.0 F Pulse Rate 91 82 Respiratory Rate 18 18 Blood Pressure 108/78 117/75 Pulse Oximetry 100 97 Oxygen Delivery Room Air 04/10/24 06:00 04/10/24 10:00 04/10/24 10:17 Temperature 98.2 F 98.1 F Pulse Rate 84 68 78 Respiratory Rate 16 18 19 Blood Pressure 120/76 120/78 87/51 L Pulse Oximetry 100 100 98 Oxygen Delivery Room Air Room Air 04/10/24 10:27 04/10/24 10:37 Temperature Pulse Rate 87 87 Respiratory Rate 20 20 Blood Pressure 114/63 114/75 Pulse Oximetry 98 98 Oxygen Delivery Room Air Room Air Intake/Output Intake/Output: Intake & Output 04/07/24 04/08/24 04/09/24 04/10/24 23:59 23:59 23:59 23:59 Intake Total 2810 1090 3420 500.0 Output Total 1450 300 178 Balance 7118 403 8954 500.0 Meds/Results Medications: Active Medications Generic Name Dose Route Start Last Admin Trade Name Freq PRN Reason Stop Dose Admin Acetaminophen 500 mg 04/07/24 15:09 Acetaminophen 500 Mg Tablet PO Q6H PRN Pain Rated 1-3 Enoxaparin Sodium 40 mg 04/08/24 09:00 04/10/24 08:22 Enoxaparin 40 Mg/0.4 Ml Syringe SUB-Q 40 mg DAILY DAYNA Administration Famotidine 20 mg 04/07/24 21:00 04/10/24 08:22 Famotidine 20 Mg Tablet PO 20 mg Q12HR DAYNA Administration Ibuprofen 800 mg in 200 mls @ 400 mls/hr 04/06/24 19:35 04/07/24 08:41 Caldolor 800 Mg/200 Ml IVPB 400 mls/hr Q6H PRN Administration Breakthrough Pain Rated 1-3 or NPO Ceftriaxone Sodium 1 gm in 50 mls @ 100 mls/hr 04/06/24 21:00 04/09/24 20:51 Rocephin 1 Gm/Ns 50 Ml IVPB Infused Q24H DAYNA Infusion Metronidazole 500 mg in 100 mls @ 100 mls/hr 04/06/24 22:00 04/10/24 06:45 Flagyl 500 Mg/Iso Soln 100 Ml IVPB Infused Q8HR DAYNA Infusion Morphine Sulfate 1 mg 04/06/24 19:35 Morphine Sulfate (*Crx) 2 Mg/Ml Inj IV PUSH Q2H PRN Breakthrough Pain Rated 4-6 or NPO Morphine Sulfate 2 mg 04/06/24 19:35 Morphine Sulfate (*Crx) 4 Mg/Ml Inj IV PUSH Q2H PRN Breakthrough Pain Rated 7-10 or NPO Naloxone HCl 0.1 mg 04/06/24 19:35 Naloxone Hcl 0.4 Mg/Ml Vial IV PUSH Q2M PRN Opiate Reversal Ondansetron HCl 4 mg 04/06/24 19:35 Ondansetron Inj 4 Mg/2 Ml Vial IV PUSH Q4H PRN Nausea And Vomiting Oxycodone/Acetaminophen 1 tablet 04/07/24 15:09 Oxycodone/Acetaminophen (*Crx) 5-325 Mg Tablet PO Q4H PRN Pain Rated 4-6 Phenol 1 spray 04/07/24 09:57 Phenol/Sod Pheno [place] (*Bkc) MUCOUS MEM PRN PRN Sore Throat Labs Labs: Laboratory Results - last 24 hr 04/10/24 04/10/24 07:09 07:10 WBC 9.3 RBC 3.97 L Hgb 11.8 L Hct 37.6 MCV 94.7 MCH 29.7 MCHC 31.4 L RDW 12.5 Plt Count 460 H MPV 9.3 Immature Gran % (Auto) 0.6 H Neut % (Auto) 53.0 Lymph % (Auto) 32.4 [place] % (Auto) 10.2 H Eos % (Auto) 2.6 Baso % (Auto) 1.2 Lymph # (Auto) 3.01 [place] # (Auto) 1.0 H Eos # (Auto) 0.2 Baso # (Auto) 0.1 Abs Immat Gran (auto) 0.06 H Absolute Neuts (auto) 4.9 Absolute Nucleated RBC 0.000 Nucleated RBC % 0.0 Sodium 137 Potassium 4.4 Chloride 102 Carbon Dioxide 29 Anion Gap 6 BUN 8 Creatinine 0.46 L Estim Creat Clear Calc 94 Estimated GFR > 60 Glucose 104 Calcium 8.6 Magnesium 1.5 L Total Bilirubin 0.4 AST 21 ALT 14 Alkaline Phosphatase 48 Total Protein 6.0 L Albumin 3.0 L
[2024-04-11] MEDS: metroNIDAZOLE 500 MG/ISO 100ML 500 MG/100 ML BAG 100 MG IVPB (05:16)
[2024-04-11 05:45] VITALS: BP 114/84; PULSE 93; RESP 18; TEMP 36.4; O2SAT 98
[2024-04-11 06:10] LABS: Alanine Aminotransferase 29 U/L (6-35); Albumin Level 3.4 g/dL (3.5-5.1); Alkaline Phosphatase 50 U/L (38-126); Anion Gap 9 mmol/L (4-12); Aspartate Amino Transferase 48 U/L (14-36); Bilirubin,Total 0.3 mg/dL (0.2-1.3); Blood Urea Nitrogen 7 mg/dL (7-17); Calcium 8.5 mg/dL (8.4-10.2); Carbon Dioxide 28 mmol/L (22-30); Chloride 100 mmol/L (98-107); Estimated CRCL calculation 94 ml/min; Estimated Glomerular Filt Rate > 60; Glucose 132 mg/dL (65-110); Magnesium 1.9 mg/dL (1.6-2.3); Potassium 3.9 mmol/L (3.4-5.0); Sodium 137 mmol/L (137-145)
[2024-04-11 06:26] LABS: Basophils Absolute Auto 0.1 K/mm3 (0.0-0.1); Basophils Percent Auto 1.2 % (0.2-1.2); Eosinophils Absolute Auto 0.4 K/mm3 (0-0.3); Eosinophils Percent Auto 3.6 % (0-4.4); Hematocrit 38.3 % (37.0-47.0); Hemoglobin 12.3 g/dL (12.0-15.0); Immature Granulocyte Absolute 0.11 K/mm3 (0.00-0.031); Immature Granulocyte Percent A 1.1 % (0-0.5); Lymphocytes Absolute Auto 3.04 K/mm3 (0.9-3.2); Lymphocytes Percent Auto 29.5 % (18.3-44.2); Mean Corpuscular HGB Conc 32.1 g/dl (32-36); Mean Corpuscular Hemoglobin 30.1 pg (26-34); Mean Corpuscular Volume 93.9 fl (80-100); Mean Platelet Volume 9.2 fl (7.4-10.4); Monocytes Absolute Auto 0.9 K/mm3 (0.1-0.6); Monocytes Percent Auto 8.7 % (2.6-8.5); Neutrophils Absolute Auto 5.8 K/mm3 (1.3-6.7); Neutrophils Percent Auto 55.9 % (45.5-73.1); Platelet Count Result 537 k/mm3 (150-375); Red Blood Count 4.08 M/mm3 (4.2-5.4); Red Cell Distribution Width 12.9 % (11.5-14.5); White Blood Count 10.3 K/mm3 (4.5-10.0)
[2024-04-11] MEDS: FAMOTIDINE 20 MG TABLET PO (08:02)
[2024-04-11] MEDS: ENOXAPARIN 40 MG/0.4 ML SYRINGE SUB-Q (08:03)
[2024-04-11 13:39] VITALS: BP 109/88; PULSE 99; RESP 18; TEMP 36.7; O2SAT 98
--- NOTE | 2024-04-11 13:56 | WPDGIPROGNO ---
Progress Note: A&P Assessment and Plan (1) Obstruction of colon: Code(s): K56.609 - Unspecified intestinal obstruction, unspecified as to partial versus complete obstruction Status: Acute Assessment and Plan: no malignancy, wonder if could be from diverticulosis she is doing great surgery on board consider colonoscopy 1 year after full recovery (2) Colostomy in place: Code(s): Z93.3 - Colostomy status Status: Acute (3) Colon, diverticulosis: Code(s): K57.30 - Diverticulosis of large intestine without perforation or abscess without bleeding Status: Acute (4) Hypokalemia: Code(s): E87.6 - Hypokalemia Status: Acute Subjective Date/time seen: 04/11/24 13:56 Interval history: colonoscopy with benign stricture and noted diverticulosis, benign polyps removed- path c/w hyperplastic Review of Systems Review of Systems: All systems reviewed & are unremarkable except as noted in HPI and below Exam Const: General: comfortable and no acute distress HENMT: Face/Nose/Sinus: Normal nares present Eyes: Sclera: sclerae normal Neck: Neck: supple Resp: Effort & Inspection: normal respiratory effort Cardio: Rate: regular rate GI: Inspection: non-distended and other (less distended) GI Palp: Yes Soft to palpation, No Tenderness to palpation present (GI), No Guarding due to palpation present (GI) and No Rebound tenderness present Auscultation: normal bowel sounds Other: transverse colostomy functioning well with liquid brown stool in bag, stoma pink/viable Skin: General skin exam: normal color Neuro: Speech: normal speech Motor exam (neuro): 5/5 motor strength present throughout Objective Data Vital Signs Vital Signs: Vital Signs - 24 hr 04/10/24 14:00 04/10/24 21:12 04/10/24 22:00 Temperature 97.2 F L 97.9 F Pulse Rate 78 90 Respiratory Rate 20 18 Blood Pressure 139/87 107/66 Pulse Oximetry 99 98 Oxygen Delivery Room Air 04/11/24 05:45 04/11/24 13:39 Temperature 97.6 F 98.0 F Pulse Rate 93 99 Respiratory Rate 18 18 Blood Pressure 114/84 109/88 Pulse Oximetry 98 98 Oxygen Delivery Intake/Output Intake/Output: Intake & Output 04/08/24 04/09/24 04/10/24 04/11/24 23:59 23:59 23:59 23:59 Intake Total 1090 3420 1590.0 780 Output Total 300 178 100 400 Balance 790 3242 1490.0 380 Meds/Results Medications: Active Medications Generic Name Dose Route Start Last Admin Trade Name Freq PRN Reason Stop Dose Admin Acetaminophen 500 mg 04/07/24 15:09 Acetaminophen 500 Mg Tablet PO Q6H PRN Pain Rated 1-3 Enoxaparin Sodium 40 mg 04/08/24 09:00 04/11/24 08:03 Enoxaparin 40 Mg/0.4 Ml Syringe SUB-Q 40 mg DAILY DAYNA Administration Famotidine 20 mg 04/07/24 21:00 04/11/24 08:02 Famotidine 20 Mg Tablet PO 20 mg Q12HR DAYNA Administration Ibuprofen 800 mg in 200 mls @ 400 mls/hr 04/06/24 19:35 04/07/24 08:41 Caldolor 800 Mg/200 Ml IVPB 400 mls/hr Q6H PRN Administration Breakthrough Pain Rated 1-3 or NPO Ceftriaxone Sodium 1 gm in 50 mls @ 100 mls/hr 04/06/24 21:00 04/10/24 21:43 Rocephin 1 Gm/Ns 50 Ml IVPB Infused Q24H DAYNA Infusion Metronidazole 500 mg in 100 mls @ 100 mls/hr 04/06/24 22:00 04/11/24 13:54 Flagyl 500 Mg/Iso Soln 100 Ml IVPB Not Given Q8HR ADYNA Morphine Sulfate 1 mg 04/06/24 19:35 Morphine Sulfate (*Crx) 2 Mg/Ml Inj IV PUSH Q2H PRN Breakthrough Pain Rated 4-6 or NPO Morphine Sulfate 2 mg 04/06/24 19:35 Morphine Sulfate (*Crx) 4 Mg/Ml Inj IV PUSH Q2H PRN Breakthrough Pain Rated 7-10 or NPO Naloxone HCl 0.1 mg 04/06/24 19:35 Naloxone Hcl 0.4 Mg/Ml Vial IV PUSH Q2M PRN Opiate Reversal Ondansetron HCl 4 mg 04/06/24 19:35 Ondansetron Inj 4 Mg/2 Ml Vial IV PUSH Q4H PRN Nausea And Vomiting Oxycodone/Acetaminophen 1 tablet 04/07/24 15:09 Oxycodone/Acetaminophen (*Crx) 5-325 Mg Tablet PO Q4H PRN Pain Rated 4-6 Phenol 1 spray 04/07/24 09:57 Phenol/Sod Pheno [place] (*Bkc) MUCOUS MEM PRN PRN Sore Throat Labs Labs: Laboratory Results - last 24 hr 04/11/24 05:49 WBC 10.3 H RBC 4.08 L Hgb 12.3 Hct 38.3 MCV 93.9 MCH 30.1 MCHC 32.1 RDW 12.9 Plt Count 537 H MPV 9.2 Immature Gran % (Auto) 1.1 H Neut % (Auto) 55.9 Lymph % (Auto) 29.5 [place] % (Auto) 8.7 H Eos % (Auto) 3.6 Baso % (Auto) 1.2 Lymph # (Auto) 3.04 [place] # (Auto) 0.9 H Eos # (Auto) 0.4 H Baso # (Auto) 0.1 Abs Immat Gran (auto) 0.11 H Absolute Neuts (auto) 5.8 Absolute Nucleated RBC 0.000 Nucleated RBC % 0.0 Sodium 137 Potassium 3.9 Chloride 100 Carbon Dioxide 28 Anion Gap 9 BUN 7 Creatinine 0.46 L Estim Creat Clear Calc 94 Estimated GFR > 60 Glucose 132 H Calcium 8.5 Magnesium 1.9 Total Bilirubin 0.3 AST 48 H ALT 29 Alkaline Phosphatase 50 Total Protein 6.0 L Albumin 3.4 L
--- NOTE | 2024-04-11 15:57 | P.PNGS_ITS ---
Progress Note: A&P Assessment and Plan (1) Obstruction of colon: Code(s): K56.609 - Unspecified intestinal obstruction, unspecified as to partial versus complete obstruction Status: Acute Assessment and Plan: Colonic obstruction relieved with diverting transverse colostomy. Flex sigmoidoscopy showed benign-appearing stenosis that was able to be traversed. Ostomy functioning well. Home health set up for discharge. Ostomy teaching done by ostomy nurses. Okay to discharge from a surgical standpoint and follow-up with Dr. Clinton in 2 weeks. Plan I have discussed the patient's case and plan of care with Dr. Clinton. Subjective Subjective Date/Time Seen: 04/11/24 15:57 Patient reports: no new complaints and tolerating a regular diet Interval history: No acute events overnight. Ostomy functioning well. Home health set up for discharge. No complaints. Exam Const: General: comfortable and no acute distress Orientation/consciousness: patient oriented x3 GI: Inspection: non-distended and other (ostomy functioning well with stool in bag) GI Palp: Yes Soft to palpation, No Tenderness to palpation present (GI), No Guarding due to palpation present (GI) and No Rebound tenderness present Auscultation: normal bowel sounds Objective Data Vital Signs Vital Signs: Vital Signs - 24 hr 04/10/24 21:12 04/10/24 22:00 04/11/24 05:45 Temperature 97.9 F 97.6 F Pulse Rate 90 93 Respiratory Rate 18 18 Blood Pressure 107/66 114/84 Pulse Oximetry 98 98 Oxygen Delivery Room Air 04/11/24 13:39 Temperature 98.0 F Pulse Rate 99 Respiratory Rate 18 Blood Pressure 109/88 Pulse Oximetry 98 Oxygen Delivery Intake/Output Intake/Output: Intake & Output 04/08/24 04/09/24 04/10/24 04/11/24 23:59 23:59 23:59 23:59 Intake Total 1090 3420 1590.0 780 Output Total 300 178 100 400 Balance 790 3242 1490.0 380 Meds/Results Medications: Active Medications Generic Name Dose Route Start Last Admin Trade Name Freq PRN Reason Stop Dose Admin Acetaminophen 500 mg 04/07/24 15:09 Acetaminophen 500 Mg Tablet PO Q6H PRN Pain Rated 1-3 Enoxaparin Sodium 40 mg 04/08/24 09:00 04/11/24 08:03 Enoxaparin 40 Mg/0.4 Ml Syringe SUB-Q 40 mg DAILY DAYNA Administration Famotidine 20 mg 04/07/24 21:00 04/11/24 08:02 Famotidine 20 Mg Tablet PO 20 mg Q12HR DAYNA Administration Ibuprofen 800 mg in 200 mls @ 400 mls/hr 04/06/24 19:35 04/07/24 08:41 Caldolor 800 Mg/200 Ml IVPB 400 mls/hr Q6H PRN Administration Breakthrough Pain Rated 1-3 or NPO Ceftriaxone Sodium 1 gm in 50 mls @ 100 mls/hr 04/06/24 21:00 04/10/24 21:43 Rocephin 1 Gm/Ns 50 Ml IVPB Infused Q24H DAYNA Infusion Metronidazole 500 mg in 100 mls @ 100 mls/hr 04/06/24 22:00 04/11/24 13:54 Flagyl 500 Mg/Iso Soln 100 Ml IVPB Not Given Q8HR DAYNA Morphine Sulfate 1 mg 04/06/24 19:35 Morphine Sulfate (*Crx) 2 Mg/Ml Inj IV PUSH Q2H PRN Breakthrough Pain Rated 4-6 or NPO Morphine Sulfate 2 mg 04/06/24 19:35 Morphine Sulfate (*Crx) 4 Mg/Ml Inj IV PUSH Q2H PRN Breakthrough Pain Rated 7-10 or NPO Naloxone HCl 0.1 mg 04/06/24 19:35 Naloxone Hcl 0.4 Mg/Ml Vial IV PUSH Q2M PRN Opiate Reversal Ondansetron HCl 4 mg 04/06/24 19:35 Ondansetron Inj 4 Mg/2 Ml Vial IV PUSH Q4H PRN Nausea And Vomiting Oxycodone/Acetaminophen 1 tablet 04/07/24 15:09 Oxycodone/Acetaminophen (*Crx) 5-325 Mg Tablet PO Q4H PRN Pain Rated 4-6 Phenol 1 spray 04/07/24 09:57 Phenol/Sod Pheno [place] (*Bkc) MUCOUS MEM PRN PRN Sore Throat Labs Labs: Laboratory Results - last 24 hr 04/11/24 05:49 WBC 10.3 H RBC 4.08 L Hgb 12.3 Hct 38.3 MCV 93.9 MCH 30.1 MCHC 32.1 RDW 12.9 Plt Count 537 H MPV 9.2 Immature Gran % (Auto) 1.1 H Neut % (Auto) 55.9 Lymph % (Auto) 29.5 [place] % (Auto) 8.7 H Eos % (Auto) 3.6 Baso % (Auto) 1.2 Lymph # (Auto) 3.04 [place] # (Auto) 0.9 H Eos # (Auto) 0.4 H Baso # (Auto) 0.1 Abs Immat Gran (auto) 0.11 H Absolute Neuts (auto) 5.8 Absolute Nucleated RBC 0.000 Nucleated RBC % 0.0 Sodium 137 Potassium 3.9 Chloride 100 Carbon Dioxide 28 Anion Gap 9 BUN 7 Creatinine 0.46 L Estim Creat Clear Calc 94 Estimated GFR > 60 Glucose 132 H Calcium 8.5 Magnesium 1.9 Total Bilirubin 0.3 AST 48 H ALT 29 Alkaline Phosphatase 50 Total Protein 6.0 L Albumin 3.4 L
--- NOTE | 2024-04-11 16:18 | P.DS_ITS ---
DS: Admitting Diagnosis Discharge Date 04/11/2024 Admitting Diagnosis obstruction of colon stricture of sigmoid colon hypokalemia hypomagnesemia DS: Discharge Diagnosis Discharge Diagnosis (1) Obstruction of colon: Code(s): K56.609 - Unspecified intestinal obstruction, unspecified as to partial versus complete obstruction Status: Acute (2) Stricture of sigmoid colon: Code(s): K56.699 - Other intestinal obstruction unspecified as to partial versus complete obstruction Status: Inactive (3) Hypokalemia: Code(s): E87.6 - Hypokalemia Status: Acute (4) Hypomagnesemia: Code(s): E83.42 - Hypomagnesemia Status: Acute DS: Summary Hospital Course Reason for hospitalization: obstruction of colon stricture of sigmoid colon hypokalemia hypomagnesemia Hospital Course: 58 y/o F with PMH of external hemorrhoids and scoliosis presents to the hospital with abdominal pain and bloating. Patient not meeting sepsis criteria on admission. Patient was noted to have hypokalemia and hypomagnesemia which both resolved with supplementation. CT abdomen/pelvis obtained and showed wall thickening of the sigmoid colon with stricture and bowel obstruction, consistent with chronic diverticulitis or less likely malignancy as well as small volume of ascites. NG tube placed at that time and patient started on antibiotics. Surgery consulted. Patient underwent a creation diverting transverse colostomy on 04/[address] Clinton. NG tube removed and patient diet advanced as tolerated. Ostomy is functioning well prior to discharge. Patient underwent ostomy training during admission. Prior to discharge discussed patient with surgery and she does not need to continue antibiotics. GI consulted for sigmoidoscopy which showed polyps, stenosis, and diverticulosis without perforation, abscess, or bleeding. Patient is to consider a full colonoscopy in 1 year after fully healed per GI. At time of discharge patient has no complaints denies chest pain, shortness a breath, palpitations, nausea/vomiting, and abdominal pain. Patient discharged home with home health in a stable condition. She is to follow up with her PCP in 1 week and surgery as scheduled. Status at Discharge Functional status at discharge: independent ambulation Time Spent with Patient Time attestation: Total time spent providing and/or coordinating discharge services: Time spent: Greater than 30 minutes Exam Narrative: AF HR 99 RR 18 Spo2 98 BP 109/88 General: female in no acute respiratory distress who is nontoxic appearing, lying semi recumbent in bed. HEENT: Normocephalic. Atraumatic. Extraocular movement intact. Sclera clear and anicteric. No facial asymmetry. Chest: Lungs are clear to auscultation bilaterally. No wheezes or crackles. CV: Heart was regular rate and rhythm. S1-S2. No murmurs, gallops, or rubs. Abd: Abdomen was soft. Nontender. Nondistended. Positive bowel sounds. Ostomy functioning well with stool present. Neuro: Patient is alert and oriented x4. Speech is clear. DS: Data Data Completed and Pending Completed studies during hospitalization: abdomen/pelvis CT Abdomen XR Pending studies at discharge: Pending at discharge 04/10/24 10:14 Surgical [PTH] Routine Labs on day of discharge: Labs from last 24 hours 04/11/24 05:49 WBC 10.3 H RBC 4.08 L Hgb 12.3 Hct 38.3 MCV 93.9 MCH 30.1 MCHC 32.1 RDW 12.9 Plt Count 537 H MPV 9.2 Immature Gran % (Auto) 1.1 H Neut % (Auto) 55.9 Lymph % (Auto) 29.5 [place] % (Auto) 8.7 H Eos % (Auto) 3.6 Baso % (Auto) 1.2 Lymph # (Auto) 3.04 [place] # (Auto) 0.9 H Eos # (Auto) 0.4 H Baso # (Auto) 0.1 Abs Immat Gran (auto) 0.11 H Absolute Neuts (auto) 5.8 Absolute Nucleated RBC 0.000 Nucleated RBC % 0.0 Sodium 137 Potassium 3.9 Chloride 100 Carbon Dioxide 28 Anion Gap 9 BUN 7 Creatinine 0.46 L Estim Creat Clear Calc 94 Estimated GFR > 60 Glucose 132 H Calcium 8.5 Magnesium 1.9 Total Bilirubin 0.3 AST 48 H ALT 29 Alkaline Phosphatase 50 Total Protein 6.0 L Albumin 3.4 L Discharge Plan Discharge Attending physician on discharge: Anthony Camp Consulting providers: Nic Clinton Discharging Clinician: Sarah Beth Lacey Anticipated Discharge Date/Time: 04/11/24 16:08 Patient Disposition: Home Health Service Activity: june shower Diet: regular Discharge Instructions: Discharge disposition: Patient admitted to the hospital for bowel obstruction Evaluated by surgery and underwent creation diverting transverse colostomy on 04/[address] Clinton Per surgery: No smoking! OK to use nicotine lozenges, gum etc. No vaping with nicotine or nicotine like substances. Take tylenol or ibuprofen as needed for any abdominal pain. See Dr. Clinton in [address] Clinton or go to ER for severe pain, vomiting, colostomy issues, or other significant change in condition. Patient underwent colonoscopy with GI Per GI consider repeat colonoscopy in 1 year after full recovery Monitor blood pressures Take caution while standing, rising, or moving Change positions slowly taking a break between each position change If you standing feel dizzy sit back down and take a break Encouraged to continue with yearly vaccinations Return to the emergency department if he developed sudden shortness of breath, chest pain, nausea, vomiting, upset stomach or intractable diarrhea Return to the emergency department if you develop fever greater than 101.5 Per Care Coordination: [facility] ([phone]) will call to set up initial visit. Follow-up with the primary care physician within 1-2 weeks Thank you for choosing [facility] for your healthcare needs Patient Instructions: Colostomy Care (DC) Patient Language: Omani Stand Alone Forms: General Discharge Information Follow-up/Referrals: Jennifer,Cheryl Lewis MD [Primary Care Provider] - 1 Week Nic Clinton MD [Physician] - 2 Weeks (Please call for appointment) Discharge Medications: Continued Estroven Cmplt Menopause Rlf 4 mg tablet See Rx Instructions PO DAILY@1600 Rx Instructions: orally DAILY@1600. Date of admission: 04/06/24 17:34 Primary Care Provider: JenniferCheryl Fry Admitting Provider: Glenn Zepeda Attending physician on admission: Sarah Beth Lacey Condition: Stable Hospitalist MIPS Heart Failure (Exclusion) Patient has history of Heart Transplant or Left Ventricular Assistive Device?: No IF YES, STOP HERE Heart Failure (Qualifier) Patient has current or prior documentation of LVEF less than or equal to 40%, or mod/servere depressed LVSF?: No IF NO, STOP HERE
== END 2024-04-11 16:42 | disposition home health service (06) | DRG 331 ==
PROVIDERS: Internal Medicine Gastroenterology; Nurse Practitioner Family; Student in an Organized Health Care Education/Training Program; Surgery; Admitting Provider General Practice; PCP Family Medicine; Visit Provider Student in an Organized Health Care Education/Training Program
PROC: 0D1L0Z4 Bypass Transverse Colon to Cutaneous, Open Approach (ICD-10-PCS; CPT 44320; principal; 2024-04-06 16:00)
PROC: 0DJD8ZZ Inspection of Lower Intestinal Tract, Via Natural or Artificial Opening Endoscopic (ICD-10-PCS; CPT 45330; principal; 2024-04-10 15:00)
DX: K56.601 Complete intestinal obstruction, unspecified as to cause (principal); K57.30 Diverticulosis of large intestine without perforation or abscess without bleeding; K63.5 Polyp of colon; E87.6 Hypokalemia; E83.42 Hypomagnesemia; M41.9 Scoliosis, unspecified; F17.210 Nicotine dependence, cigarettes, uncomplicated
CPT/HCPCS: 36415; 80048; 80053; 83735; 85025; 88305; A9270; G0378; J0696; J1100; J1171; J1650; J1741; J1836; J2003; J2250; J2405; J2543; J2704; J3010; J3475; J7120

== ENCOUNTER 2024-05-07 11:57 | Outpatient (CLI) | payer BC, SELFPAY ==
--- NOTE | ~2024-05-07 | XR_ITS ---
EXAMINATION: XR chest 2V 05/07/2024 13:22 INDICATION: Intestinal obstruction PROCEDURE: 2 view chest COMPARISON: 08/08/2012 FINDINGS: The lungs are clear. The cardiomediastinal silhouette is within normal limits. There are no pleural effusions. There is no pneumothorax suspected. There is a Berry collins overlying the t horacic spine. There is dextroscoliosis. IMPRESSION: 1: NO ACUTE CARDIOPULMONARY DISEASE. Reviewed, dictated and finalized at location A.
--- NOTE | 2024-05-07 12:50 | ECG_ITS ---
Test Date: 2024-05-07 13:07:36 Measurements Intervals Mica Rate: 91 P: 56 MS: 200 QRS: 5 QRSD: 80 T: 53 QT: 335 QTc: 413 Interpretive Statements SINUS RHYTHM WITH SINUS ARRHYTHMIA LOW QRS VOLTAGE [QRS DEFLECTION < 0.5/1.0 mV IN LIMB/CHEST LEADS] PATTERN CONSISTENT WITH PULMONARY DISEASE ABNORMAL ECG Electronically Signed On 05-07-2024 14:07:20 CDT by Boo Tomlinson M.D.
--- OUTSIDE RECORDS SUMMARY | 2024-05-07 13:21 | XMS_ITS | Clinical Summary ---
Author Organization 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
[2024-05-07 13:44] LABS: Basophils Absolute Auto 0.2 K/mm3 (0.0-0.1); Basophils Percent Auto 1.4 % (0.2-1.2); Eosinophils Absolute Auto 0.7 K/mm3 (0-0.3); Eosinophils Percent Auto 5.2 % (0-4.4); Hematocrit 40.6 % (37.0-47.0); Hemoglobin 12.9 g/dL (12.0-15.0); Immature Granulocyte Absolute 0.09 K/mm3 (0.00-0.031); Immature Granulocyte Percent A 0.7 % (0-0.5); Lymphocytes Absolute Auto 4.37 K/mm3 (0.9-3.2); Lymphocytes Percent Auto 33.2 % (18.3-44.2); Mean Corpuscular HGB Conc 31.8 g/dl (32-36); Mean Corpuscular Hemoglobin 30.2 pg (26-34); Mean Corpuscular Volume 95.1 fl (80-100); Mean Platelet Volume 9.7 fl (7.4-10.4); Monocytes Absolute Auto 0.8 K/mm3 (0.1-0.6); Monocytes Percent Auto 5.8 % (2.6-8.5); Neutrophils Absolute Auto 7.1 K/mm3 (1.3-6.7); Neutrophils Percent Auto 53.7 % (45.5-73.1); Platelet Count Result 530 k/mm3 (150-375); Red Blood Count 4.27 M/mm3 (4.2-5.4); Red Cell Distribution Width 13.2 % (11.5-14.5); White Blood Count 13.2 K/mm3 (4.5-10.0)
[2024-05-07 13:46] LABS: Add Urine Microscopic? NO; Appearance Urine Clear (Clear); Bilirubin Urine Negative (Negative); Blood Urine Negative (Negative); Color Urine Yellow (Yellow); Glucose Urine UA Negative (Negative); Ketones Urine Negative (Negative); Leukocyte Esterase Ur Negative LEU/UL (Negative); Nitrate Urine Negative (Negative); Protein Urine Negative (Negative); Specific Grav Ur 1.006 (1.001-1.035); Urobilinogen Urine 0.2 mg/dL (<2.0); pH Urine 5.5 (5.0-9.0)
[2024-05-07 13:57] LABS: Anion Gap 9 mmol/L (4-12); Blood Urea Nitrogen 13 mg/dL (7-17); Calcium 9.7 mg/dL (8.4-10.2); Carbon Dioxide 30 mmol/L (22-30); Chloride 100 mmol/L (98-107); Estimated Glomerular Filt Rate > 60; Glucose 91 mg/dL (65-110); Potassium 4.2 mmol/L (3.4-5.0); Sodium 139 mmol/L (137-145)
== END 2024-05-07 11:58 | disposition home or self-care (01) ==
LOC: ANHSURGERY 12:04
PROVIDERS: PCP Family Medicine; Visit Provider Surgery
DX: Z01.818 Encounter for other preprocedural examination (principal); K56.699 Other intestinal obstruction unspecified as to partial versus complete obstruction; K56.609 Unspecified intestinal obstruction, unspecified as to partial versus complete obstruction; I49.8 Other specified cardiac arrhythmias
CPT/HCPCS: 36415; 71046; 80048; 81003; 85025; 86850; 86900; 86901; 93005

== ENCOUNTER 2024-05-15 12:04 | Outpatient (NON) | payer BC, SELFPAY ==
[2024-05-15 12:27] LABS: Basophils Absolute Auto 0.2 K/mm3 (0.0-0.1); Basophils Percent Auto 1.2 % (0.2-1.2); Eosinophils Absolute Auto 0.5 K/mm3 (0-0.3); Hemoglobin 12.9 g/dL (12.0-15.0); Immature Granulocyte Percent A 0.6 % (0-0.5); Lymphocytes Absolute Auto 4.43 K/mm3 (0.9-3.2); Lymphocytes Percent Auto 28.5 % (18.3-44.2); Mean Corpuscular HGB Conc 31.5 g/dl (32-36); Mean Corpuscular Hemoglobin 29.8 pg (26-34); Mean Corpuscular Volume 94.7 fl (80-100); Mean Platelet Volume 10.2 fl (7.4-10.4); Monocytes Absolute Auto 0.8 K/mm3 (0.1-0.6); Monocytes Percent Auto 5.3 % (2.6-8.5); Neutrophils Absolute Auto 9.5 K/mm3 (1.3-6.7); Neutrophils Percent Auto 61.4 % (45.5-73.1); Platelet Count Result 515 k/mm3 (150-375); Red Blood Count 4.33 M/mm3 (4.2-5.4); Red Cell Distribution Width 13.2 % (11.5-14.5); White Blood Count 15.5 K/mm3 (4.5-10.0)
--- OUTSIDE RECORDS SUMMARY | 2024-05-15 13:23 | XMS_ITS | Clinical Summary ---
Author Organization 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
== END 2024-05-15 12:05 | disposition home or self-care (01) ==
LOC: HOME HLTH 12:05
PROVIDERS: PCP Family Medicine; Visit Provider Surgery
DX: J06.9 Acute upper respiratory infection, unspecified (principal); D72.829 Elevated white blood cell count, unspecified
CPT/HCPCS: 85025

== ENCOUNTER 2024-05-16 16:53 | Inpatient (IN) | payer BC, SELFPAY ==
[2024-05-07 12:20] VITALS: BP 130/80; PULSE 93; RESP 16; TEMP 36.8; O2SAT 98
--- NOTE | 2024-05-07 12:36 | PC.NURSE ---
Report to the Outpatient Waiting Room, entrance under the green pavilion located off [facility], at time ___9:00AM____ on date ___05/16/24____. Planned Procedure Time: __11:00AM .? Time changes happen often and if your time is changed the preop area will call you the afternoon before. - You and your visitor will be asked to self-screen and do not enter if you have any COVID symptoms. Please call surgeon if you need to reschedule. - A mask is optional within the hospital at this time. BOWEL PREP/CLEAR LIQUIDS ON DAY BEFORE SURGERY. Patients may have clear liquids (water, carbonated beverages, clear teas, apple juice) until 3 hours prior to surgery (8:00AM) with a maximum of 20 ounces. - No food from midnight until time of surgery and no smoking, or chewing tobacco (or any form of nicotine). No chewing gum, candy or mints. Take only the following medications with a SIP of water on the morning of surgery: ___NONE DO NOT STOP ANY OF YOUR OTHER PRESCRIPTION MEDICATIONS PRIOR TO SURGERY EXCEPT THE FOLLOWING Hold all vitamins and supplements for 3 days per anesthesiologist.-LAST DOSE 05/12/24 Please no make-up, nail occitan, hairspray, perfume, deodorant, or body powder the day of surgery.? No jewelry (including any body piercings) or valuables the day of surgery, leave them at home.? Please take a shower or bath the night before, or the morning of, surgery with an antibacterial soap.? Wear comfortable, loose fitting clothing.? - Jewelry must be removed prior to entering the operating room.? Rings and piercings that are not removed may be cut off. - The hospital will not accept responsibility for valuables.? - Please leave all valuables, including medications, at home the day of surgery. If you are going home after surgery, a licensed local owner operator truck driver must drive you home.? - NO public transportation without another adult if you receive anesthesia. - We recommend that an adult stay with you for 24 hours following discharge. - We also recommend that you do not drive, make important decision, drink alcoholic beverages, or take any drugs that were not prescribed by your health care provider for at least 24 hours after your discharge time. Follow any additional instructions given to you from your surgeon. Telephone instructions given to ____PATIENT and asked if any additional questions and then verbalized understanding. Patient advised to call surgeon office or pre surgery nurse liaison [phone] if any additional questions.
[2024-05-16] VITALS (11 sets, daily range): BP systolic 109–144; BP diastolic 73–96; PULSE 80–100; RESP 12–18; TEMP 35.1–37.1; O2SAT 91–100
--- OUTSIDE RECORDS SUMMARY | 2024-05-16 00:11 | XMS_ITS | Clinical Summary ---
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
[2024-05-16] MEDS: LACTATED RINGERS 1,000 ML 30 ML IV CONT ×2 (09:30→15:34)
[2024-05-16] MEDS: KETOROLAC 15 MG/ML VIAL (*BKC) IV PUSH (10:19)
[2024-05-16] MEDS: ALVIMOPAN 12 MG CAPSULE PO (10:19)
[2024-05-16] MEDS: ACETAMINOPHEN 500 MG TABLET 1000 MG PO (10:19)
--- NOTE | 2024-05-16 11:01 | WPDHPUPDATE1 ---
History and Physical Update Update Date/Time: 05/16/24 11:01 History and Physical has been reviewed, including an updated exam of the patient. There are NO changes in the patient's condition. Risks, benefits, and alternatives have been discussed and questions answered. Patient agrees to proceed with procedure.
--- NOTE | 2024-05-16 11:20 | WPDANESEPPF ---
Anes - Initial Pre Proc Eval Procedure: Operation Date: 05/16/24 11:00 Proposed Procedures p Closure Transverse Colostomy, - Nic Clniton MD s Sigmoidectomy - Nic Clinton MD Date/Time: 05/16/24 11:20 Surgeon: Nic Clinton MD Pre Op Diagnosis: sigmoid colon stricture, Colostomy Status Patient Data Age: 58 Gender: F Height: 1.65 m Weight: 54 kg Last Vital Signs Temp 97.6 F 05/16/24 09:45 Pulse 100 05/16/24 09:45 Resp 14 05/16/24 09:45 BP 109/73 05/16/24 09:45 Pulse Ox 100 05/16/24 09:45 O2 Del Method Room Air 05/16/24 09:45 Allergies Allergy/AdvReac Type Severity Reaction Status Date / Time No Known Allergies Allergy Verified 05/16/24 10:17 Home Medications ?Medication ?Instructions ?Recorded ?Confirmed ?Type rhubarb root extract 4 mg tablet See Rx Instructions PO DAILY@1600 04/06/24 05/16/24 History (Estroven Complete Menopause Relief) ciprofloxacin HCl 500 mg tablet 500 mg PO .COMPLEX #1 tablet 04/26/24 05/16/24 Rx metronidazole 500 mg tablet 500 mg PO .COMPLEX #3 tabs 04/26/24 05/16/24 Rx melatonin 12 mg tablet 12 mg PO HS PRN sleep 05/07/24 05/16/24 History nicotine 14 mg/24 hr daily 1 patch topical Q24H 05/07/24 05/16/24 History transdermal patch azithromycin 250 mg tablet See Rx Instructions PO .COMPLEX #6 05/09/24 05/16/24 Rx tabs Laboratory Tests 05/16/24 11:11 WBC Pending RBC Pending Hgb Pending Hct Pending MCV Pending MCH Pending MCHC Pending RDW Pending Plt Count Pending MPV Pending Immature Gran % (Auto) Pending Neut % (Auto) Pending Lymph % (Auto) Pending [place] % (Auto) Pending Eos % (Auto) Pending Baso % (Auto) Pending Lymph # (Auto) Pending [place] # (Auto) Pending Eos # (Auto) Pending Baso # (Auto) Pending Abs Immat Gran (auto) Pending Absolute Neuts (auto) Pending Absolute Nucleated RBC Pending Nucleated RBC % Pending Sodium Pending Potassium Pending Chloride Pending Carbon Dioxide Pending Anion Gap Pending BUN Pending Creatinine Pending Estim Creat Clear Calc Pending Estimated GFR Pending Glucose Pending Calcium Pending C-Reactive Protein Pending Patient hx anesthesia problems: none Family hx anesthesia problems: none Results Review: All pre-operative results and documents have been reviewed as part of the pre-operative evaluation. [facility] Past Medical History Medical History Colon, diverticulosis Current smoker Scoliosis External hemorrhoids Surgical History Surgical History Colostomy in place 04/06/24 Creation diverting transverse colostomy Dr. Clinton History of back surgery [facility] Social History Social History Smoking packs per day: 0.75 Smoking cigarettes per day: 15.0 Years smoked: 40 Smoking pack-years: 30.00 Smoking status: Former smoker Tobacco type: cigarettes Smoking end date: 04/06/24 Additional smoking assessment comments: off and on since she was 15 Alcohol intake: current Drinks per week: 6 Alcohol use details: DRINKS LITTLE IN WINTER/MORE IN SUMMER Substance use: current Substance use type: marijuana Other substance usage details: daily Last use: 03/23/24 Do You Feel Safe in your Home?: Yes Lack of Transportation: No Lack of Food: Never True Current Housing: I Have Housing Concerned About Future Housing: No Difficulty Paying Gas/Electric Bills: No Difficulty Paying for Meds: No Currently Unemployed: No Education: High School Diploma/GED Difficulty w/ Childcare or Family Care: No Living arrangements: with family Additional living arrangements comments: [facility] Spiritual care concerns: No Anes - Eval Final PreProcedure Day of Procedure 05/16/24 11:20 Patient weight: normal and thin Lungs: normal air movement Airway: Mallampati scale class II and special considerations (Edentulous on upper, missing lower incisor and several posterior. ) Neurological: alert and oriented Last oral intake: >/= 8 hours ASA classification: III Emergent: no Anesthetic plan: proceed Anesthesia type and monitoring: general ETT and standard monitoring Results Review: All pre-operative results and documents have been reviewed as part of the pre-operative evaluation. Long time smoker, 40 pack years, quit 04/06/24. Informed Consent: The patient's anesthetic plan and its attendant risks and benefits were discussed with the patient/family/POA. Questions were solicited and answers provided to the satisfaction of the patient/family/POA.
[2024-05-16 11:22] LABS: Basophils Absolute Auto 0.2 K/mm3 (0.0-0.1); Basophils Percent Auto 1.2 % (0.2-1.2); Eosinophils Absolute Auto 0.4 K/mm3 (0-0.3); Eosinophils Percent Auto 2.9 % (0-4.4); Hematocrit 43.1 % (37.0-47.0); Immature Granulocyte Absolute 0.07 K/mm3 (0.00-0.031); Immature Granulocyte Percent A 0.5 % (0-0.5); Lymphocytes Percent Auto 37.5 % (18.3-44.2); Mean Corpuscular HGB Conc 32.5 g/dl (32-36); Mean Corpuscular Hemoglobin 30.8 pg (26-34); Mean Corpuscular Volume 94.9 fl (80-100); Mean Platelet Volume 9.6 fl (7.4-10.4); Monocytes Percent Auto 7.1 % (2.6-8.5); Neutrophils Absolute Auto 6.9 K/mm3 (1.3-6.7); Neutrophils Percent Auto 50.8 % (45.5-73.1); Platelet Count Result 531 k/mm3 (150-375); Red Blood Count 4.54 M/mm3 (4.2-5.4); Red Cell Distribution Width 13.4 % (11.5-14.5); White Blood Count 13.6 K/mm3 (4.5-10.0)
[2024-05-16 11:42] LABS: Anion Gap 8 mmol/L (4-12); Blood Urea Nitrogen 10 mg/dL (7-17); CRP 0.6 mg/dL (<1.0); Calcium 9.2 mg/dL (8.4-10.2); Carbon Dioxide 30 mmol/L (22-30); Chloride 103 mmol/L (98-107); Estimated CRCL calculation 70 ml/min; Estimated Glomerular Filt Rate > 60; Glucose 76 mg/dL (65-110); Potassium 3.8 mmol/L (3.4-5.0); Sodium 141 mmol/L (137-145)
[2024-05-16] MEDS: ceFAZolin 2 GM/D5W 50 ML 2 GM/50 ML BAG IVPB (11:50)
[2024-05-16] MEDS: metroNIDAZOLE 500 MG/ISO 100ML 500 MG/100 ML BAG 100 MG IVPB (12:02)
--- NOTE | 2024-05-16 16:02 | W.PM.PROC2 ---
Procedure Note - Detailed Date of Procedure 05/16/24 Pre-op Diagnosis Colonic obstruction, sigmoid colon stricture, transverse Colostomy Status Post-op Diagnosis Same Procedure Performed Closure transverse colostomy, sigmoidectomy with stapled 33 EEA anastomosis, takedown splenic flexure Surgeon Nic Clinton MD [employer] Operator Marylou Spencer [place] Anesthesia General Indications Patient presented the end of March with colonic obstruction with the point of obstruction in the sigmoid colon. She had urgent surgery on the day of admission and creation of a transverse diverting colostomy was performed. A few days later, the patient had a sigmoidoscopy which did not show malignancy and instead was suggestive of a benign, likely diverticular, stricture. She has stopped smoking but uses nicotine patch is. She is taken back to surgery now for closure of the transverse colostomy as well as sigmoid colon resection with anastomosis. Findings Transverse colostomy was in good condition and was able to be closed in 2 layers with hand-sewn closure. There was a large hardened mass in the sigmoid colon. There was no evidence of malignancy such as enlarged lymph nodes or liver lesions. There were significant omental adhesions to the splenic flexure. Splenic flexure takedown was more difficult but was able to be accomplished successfully. Description of Procedure The patient was taken to surgery and induced into general anesthesia. She had previously undergone home bowel prep. About 1 week ago she had also undergone irrigation of the distal limb of the transverse colostomy by the enterostomal therapy nurses. She had had Fleet's enema last night and this morning for rectal prep. When she was asleep under general anesthesia, she was placed in Esdras stirrups in in lithotomy. Steele catheter was placed. Rectal irrigation and rectal tube were placed. The abdomen was prepped and draped. We turned our attention initially to the transverse colostomy. Mucocutaneous incision around the edges of the colostomy was performed 1st. Dissection was continued through the skin and then some adhesions to the wall of the bowel were also taken down. No entry into the colon occurred. Cautery was used for hemostasis as well as most of the dissection. We freed adhesions in the subcutaneous and most of the adhesions to the fascia. We now had significant amount of transverse colon elevated above the skin and the closure the colostomy was then performed. Bidirectional running 4-0 chromic inverting sutures were placed for the inner layer. 4-0 silk Lembert sutures were placed for the outer layer closure. All looked good. We dropped the colon back into the abdomen. We then used the colostomy site as the apex of our midline incision. Incision was created and went beyond the umbilicus down to nearly the suprapubic area. Cautery was used for hemostasis. Dissection was carried through the midline fascia and extended the length of the wound. The fascia was then elevated on each side and omental anterior abdominal wall adhesions were taken down. The colostomy closure site was able to be reviewed and appeared to be in good condition with no signs of ischemia or other problems. We then turned our attention to the mass in the left lower quadrant involving the sigmoid colon. The fallopian tube on the left was somewhat adherent to this and was carefully dissected off the mass. The round ligament was quite adherent as well. The LigaSure was brought into the field. The round ligament was divided distally and proximally and was discarded. We took down the lateral peritoneal attachments to the descending colon. The ureter was easily found and was dissected anteriorly over much of its course. We continued the mobilization of the sigmoid colon mass down into the upper rectum. Finding an area of upper rectum which was soft and pliable, we chose this for our distal line of resection. Using the cautery and the LigaSure, the mesentery to the upper rectum was 1st scored and then divided. We freed any fatty tissue from the upper rectum where we planned to do the transection. A contour stapler was then used and the distal sigmoid was divided from the upper rectum. I then mobilized some additional descending colon. An area of distal descending colon was felt to be the best place for the proximal line of resection. I checked this with the rectal resection and there needed to be more colonic length. I went ahead and divided the rest of the lateral peritoneal attachments to the descending colon. The splenic flexure was completely covered with omental adhesions on both the splenic flexure as well as the abdominal sidewall and distal transverse colon. These adhesions were taken down off the abdominal anterior and sidewall 1st. I then continued dissection of the omental adhesions off of the proximal descending colon. I dissected omental adhesions off the distal transverse colon and splenic flexure. Some of these adhesions required use of the LigaSure as they were thickened. Eventually the omentum was freed from the splenic flexure and I was able to bring the splenic flexure down into the area of the abdominal wound with the accompanying distal transverse colon. I then exposed the descending colon mesentery well away from the marginal artery and began dividing this with the cautery. This was continued from the area of the splenic flexure down to the descending colon where the proximal resection was planned. Additional omental adhesions were taken off the transverse colon. Additional bare areas of transverse colon mesentery were divided. The splenic flexure was mobilized well and we now had excellent length for the anastomosis. I exposed the mesentery associated with the obstructing mass and stricture. Using the Harmonic scalpel, I divided this mesentery and also divided the inferior mesenteric artery near its origin. Now the entire descending colon had been fully mobilized as had been the splenic flexure. I used a TLC 75 stapler and divided the proximal descending colon at the area planned for the proximal line of resection. The splenic flexure with the mass and its mesentery was then passed off as a specimen labeled sigmoid colon. I reviewed the staple line for the descending colon. I removed some of the mesentery from the staple line so that the bowel would be more exposed for creation of a pursestring suture. I then used the disposable pursestring suture device and created a pursestring suture in the end of the distal descending colon. Once the device was removed, I opened the colon. There were a couple of small pieces of stool within. These were removed. I used 4-0 silk suture and reinforced the pursestring suture with some interrupted silk suture to keep the pursestring suture adherent to the bowel. I then used serial EEA dilators in the end of the distal descending colon. The 33 EEA was chosen. The anvil was placed in the distal descending colon and the pursestring suture was tied. All looked good. I did remove a couple more areas of epiploic and other fatty tissue from the anticipated staple line. The 1st electrical assistant then went to the rectum. Serial EEA dilators were passed from the rectum up to the rectal staple line. We then passed the 33 EEA from the rectum up to the staple line. The spike was advanced fully. The anvil was attached to the spike. The EEA was then closed appropriately. It was fired. It was removed appropriately. Two full donuts were noted. The 1st electrical assistant then placed the proctoscope in the rectum and insufflated air into the rectum. We had the anastomosis under water and saw no bubbles even with distension of the bowel and anastomosis. The 1st electrical assistant then scrubbed back in and the surgeon then went to the rectum. I advanced the proctoscope up through the rectum until I was at the site stapled anastomosis. Looking at the anastomosis, I saw no problems or issues. I was able to pass the proctoscope beyond the anastomosis without difficulty. We did another leak test and again no evidence of bubbling or leakage was seen. I removed the proctoscope and then scrubbed back in. We re checked all areas of dissection including the colostomy closure and anastomosis. All looked good. There was no evidence of bleeding at the areas of dissection. We recheck the ureter and it appeared to be unharmed. We then placed the bowel back in its anatomic position. There was an opening in the omentum where it is was associated with the transverse colostomy. This opening was closed with interrupted 3-0 Vicryl suture. The midline fascia was then closed with bidirectional running 1. PDS suture. There was some debridement associated with scar tissue in the subcutaneous associated with the colostomy site. We then closed the subcutaneous tissue with interrupted 3-0 Vicryl suture. The skin was then loosely approximated with interrupted subcuticular 4-0 Vicryl skin stitches. All looked good. The wound was dressed with Xeroform gauze, fluffs, Medipore tape. Steele catheter was removed. Patient was awakened and taken to recovery in good condition. Sponge and needle counts were correct x2. Estimated Blood Loss -100 Drains No Packing No Pathology Yes (Sigmoid colon) Complications None Condition Stable Disposition PACU [facility] Billing Surgery - Charge Forward: Surgery Billing (Closure transverse diverting colostomy, sigmoidectomy with stapled EEA anastomosis, takedown splenic flexure)
[2024-05-16] MEDS: fentaNYL CITRATE INJ (*CRX) 100 MCG/2 ML VIAL 25 MCG IV PUSH ×2 (16:05→16:34)
[2024-05-16] MEDS: LACTATED RINGERS 1,000 ML 100 ML IV CONT (17:42)
[2024-05-16] MEDS: MORPHINE SULFATE (*CRX) 4 MG/ML INJ IV PUSH (17:47)
[2024-05-16] MEDS: ONDANSETRON INJ 4 MG/2 ML VIAL IV PUSH (17:47)
--- NOTE | 2024-05-16 18:06 | ADMGEN ---
This patient, Sintia Lipscomb, was admitted to [facility] Surg Room 326-01. Patient/family oriented to hospital policies and general routines including ID bracelet, bed and alarms, visiting hours, pain management, procedures, bathroom and other care routines, personal items, smoking policy, room service/diet, and visiting hours. Information on how to activate the Rapid Response Team has been discussed. Patient/Family are encouraged to report perceived risks to care and to ask questions if they do not understand what they are told or what they should do.
[2024-05-16] MEDS: FAMOTIDINE 20 MG/2 ML VIAL IV PUSH (20:58)
[2024-05-17] VITALS (9 sets, daily range): BP systolic 121–145; BP diastolic 71–89; PULSE 93–120; RESP 16–20; TEMP 36.1–37.3; O2SAT 94–98
[2024-05-17] MEDS: LACTATED RINGERS 1,000 ML 100 ML IV CONT (04:01)
[2024-05-17 06:18] LABS: Hematocrit 38.4 % (37.0-47.0); Hemoglobin 11.9 g/dL (12.0-15.0); Mean Corpuscular Volume 96.7 fl (80-100); Mean Platelet Volume 9.5 fl (7.4-10.4); Platelet Count Result 435 k/mm3 (150-375); Red Blood Count 3.97 M/mm3 (4.2-5.4); Red Cell Distribution Width 13.5 % (11.5-14.5); White Blood Count 24.4 K/mm3 (4.5-10.0)
[2024-05-17 07:09] LABS: Anion Gap 8 mmol/L (4-12); Blood Urea Nitrogen 8 mg/dL (7-17); Calcium 8.6 mg/dL (8.4-10.2); Carbon Dioxide 29 mmol/L (22-30); Chloride 102 mmol/L (98-107); Estimated CRCL calculation 68 ml/min; Estimated Glomerular Filt Rate > 60; Glucose 139 mg/dL (65-110); Potassium 4.2 mmol/L (3.4-5.0); Sodium 139 mmol/L (137-145)
--- NOTE | 2024-05-17 07:41 | PM.PNGS ---
Progress Note: A&P Assessment and Plan (1) History of colectomy: Code(s): Z90.49 - Acquired absence of other specified parts of digestive tract Status: Acute Assessment and Plan: Doing well postop day 1. Able to walk to the bathroom with moderate assistance. No longer nauseated. Will advance to full liquids. Urinating without difficulty. Labs noted. Patient had leukocytosis preop and now has significant leukocytosis after surgery. Not sure the relevance of this both preop for now. Leukocytosis postop is generally expected due to D margination of leukocytes. Start dressing changes today. Pain control adequate. (2) Obstruction of colon: Code(s): K56.609 - Unspecified intestinal obstruction, unspecified as to partial versus complete obstruction Status: Chronic Assessment and Plan: Status post transverse diverting colostomy which was closed at surgery yesterday (3) Colon, diverticulosis: Code(s): K57.30 - Diverticulosis of large intestine without perforation or abscess without bleeding Status: Chronic Assessment and Plan: Suspected cause of obstruction based on sigmoidoscopy. Path pending (4) Colostomy in place: Code(s): Z93.3 - Colostomy status Status: Chronic Assessment and Plan: Closed at surgery yesterday. Subjective Subjective Date/Time Seen: 05/17/24 07:41 Post Op day: 1 Patient reports: pain is less (Postop pain is tolerable), voiding w/o difficulty, no flatus, no bowel movement and afebrile Interval history: Had some nausea when she got up after surgery last night but none this morning. Exam Const: General: comfortable, no acute distress, alert and awake Nutritional Appearance: thin Orientation/consciousness: patient oriented x3 GI: Inspection: non-distended and incision (Dressing dry and intact) GI Palp: Yes Soft to palpation and Yes Tenderness to palpation present (GI) Neuro: General: patient oriented x3 and no focal motor deficits Extrem: General: no calf tenderness and no edema Psych: Affect: normal affect Insight: Good insight present (Psych) Judgement: Good judgement present (Psych) Objective Data Vital Signs Vital Signs: Vital Signs - 24 hr 05/16/24 09:45 05/16/24 15:34 05/16/24 15:50 Temperature 36.4 C 36.8 C Pulse Rate 100 96 93 Respiratory Rate 14 16 12 Blood Pressure 109/73 144/96 H 140/84 Pulse Oximetry 100 100 100 Oxygen Delivery Room Air Simple Face Mask Simple Face Mask Oxygen Flow Rate 10 10 05/16/24 16:05 05/16/24 16:20 05/16/24 16:35 Temperature 37.1 C Pulse Rate 96 99 92 Respiratory Rate 12 12 12 Blood Pressure 133/85 138/84 136/81 Pulse Oximetry 95 96 98 Oxygen Delivery Room Air Nasal Cannula Nasal Cannula Oxygen Flow Rate 2 2 05/16/24 16:53 05/16/24 17:08 05/16/24 17:38 Temperature 35.3 C L 35.1 C L 35.4 C L Pulse Rate 99 92 80 Respiratory Rate 18 18 18 Blood Pressure 126/75 132/77 132/77 Pulse Oximetry 93 95 94 Oxygen Delivery Oxygen Flow Rate 05/16/24 18:38 05/16/24 20:58 05/16/24 22:22 Temperature 35.6 C L 36.5 C Pulse Rate 88 92 Respiratory Rate 18 16 Blood Pressure 122/85 131/83 Pulse Oximetry 91 98 Oxygen Delivery Room Air Oxygen Flow Rate 05/17/24 02:22 05/17/24 06:06 Temperature 36.1 C L 37.3 C Pulse Rate 93 108 H Respiratory Rate 16 16 Blood Pressure 122/89 132/82 Pulse Oximetry 98 97 Oxygen Delivery Oxygen Flow Rate Intake/Output Intake/Output: Intake & Output 05/14/24 05/15/24 05/16/24 05/17/24 23:59 23:59 23:59 23:59 Intake Total 650 1300 Balance 650 1300 Meds/Results Medications: Active Medications Generic Name Dose Route Start Last Admin Trade Name Jose Luisq PRN Reason Stop Dose Admin Acetaminophen 500 mg 05/16/24 16:53 Acetaminophen 500 Mg Tablet PO Q6H PRN Pain Rated 1-3 Alvimopan 12 mg 05/17/24 21:00 Alvimopan 12 Mg Capsule PO 05/24/24 20:59 Q12HR [facility] Enoxaparin Sodium 40 mg 05/17/24 09:00 Enoxaparin 40 Mg/0.4 Ml Syringe SUB-Q DAILY DAYNA Famotidine 20 mg 05/16/24 21:00 05/16/24 20:58 Famotidine 20 Mg/2 Ml Vial IV PUSH 20 mg Q12HR DAYNA Administration Ibuprofen 800 mg in 200 mls @ 400 mls/hr 05/16/24 16:53 Caldolor 800 Mg/200 Ml IVPB Q6H PRN Breakthrough Pain Rated 1-3 or NPO Lactated Ringer's 1,000 mls @ 100 mls/hr 05/16/24 16:53 05/17/24 04:01 Lr - Lactated Ringers Iv IV CONT 100 mls/hr .Q10H DAYNA Administration Melatonin 12 mg 05/16/24 21:00 Melatonin 3 Mg Tablet PO HS PRN sleep Morphine Sulfate 2 mg 05/16/24 16:53 Morphine Sulfate (*Crx) 2 Mg/Ml Inj IV PUSH Q2H PRN Breakthrough Pain Rated 4-6 or NPO Morphine Sulfate 4 mg 05/16/24 16:53 05/16/24 17:47 Morphine Sulfate (*Crx) 4 Mg/Ml Inj IV PUSH 4 mg Q2H PRN Administration Breakthrough Pain Rated 7-10 or NPO Naloxone HCl 0.1 mg 05/16/24 16:53 Naloxone Hcl 0.4 Mg/Ml Vial IV PUSH Q2M PRN Opiate Reversal Nicotine 1 patch 05/16/24 16:53 05/16/24 17:52 Nicotine (*Pbkc) 14 Mg Patch TOPICAL Not Given Q24H [facility] Non-Formulary Medication 1 each 05/16/24 09:00 Nonformulary Nutritional Supplement XX 05/17/24 08:59 DAILY [facility] Ondansetron HCl 4 mg 05/16/24 16:53 05/16/24 17:47 Ondansetron Inj 4 Mg/2 Ml Vial IV PUSH 4 mg Q4H PRN Administration Nausea And Vomiting Oxycodone/Acetaminophen 1 tablet 05/16/24 16:53 Oxycodone/Acetaminophen (*Crx) 5-325 Mg Tablet PO Q4H PRN Pain Rated 4-6 Labs Labs: Laboratory Results - last 24 hr 05/16/24 05/17/24 11:11 05:53 WBC 13.6 H 24.4 H RBC 4.54 3.97 L Hgb 14.0 11.9 L Hct 43.1 38.4 MCV 94.9 96.7 MCH 30.8 30.0 MCHC 32.5 31.0 L RDW 13.4 13.5 Plt Count 531 H 435 H MPV 9.6 9.5 Immature Gran % (Auto) 0.5 Neut % (Auto) 50.8 Lymph % (Auto) 37.5 [place] % (Auto) 7.1 Eos % (Auto) 2.9 Baso % (Auto) 1.2 Lymph # (Auto) 5.10 H [place] # (Auto) 1.0 H Eos # (Auto) 0.4 H Baso # (Auto) 0.2 H Abs Immat Gran (auto) 0.07 H Absolute Neuts (auto) 6.9 H Absolute Nucleated RBC 0.000 Nucleated RBC % 0.0 Sodium 141 139 Potassium 3.8 4.2 Chloride 103 102 Carbon Dioxide 30 29 Anion Gap 8 8 BUN 10 8 Creatinine 0.63 L 0.65 L Estim Creat Clear Calc 70 68 Estimated GFR > 60 > 60 Glucose 76 139 H Calcium 9.2 8.6 C-Reactive Protein 0.6
[2024-05-17] MEDS: MORPHINE SULFATE (*CRX) 4 MG/ML INJ IV PUSH ×2 (08:27→15:27)
[2024-05-17] MEDS: FAMOTIDINE 20 MG TABLET PO ×2 (08:30→20:09)
[2024-05-17] MEDS: ENOXAPARIN 40 MG/0.4 ML SYRINGE SUB-Q (08:31)
--- NOTE | 2024-05-17 10:35 | P.PNAN_ITS ---
Anes - Prog Note Post-Op Date/Time: 05/17/24 10:35 Cardiovascular status: normal Respiratory status: normal Airway patency: baseline Mental status: baseline Vital Signs: Last Vital Signs Temp 36.2 C L 05/17/24 08:24 Pulse 120 H 05/17/24 10:11 Resp 16 05/17/24 08:30 BP 126/71 05/17/24 08:24 Pulse Ox 94 05/17/24 08:30 O2 Del Method Room Air 05/17/24 08:30 O2 Flow Rate 2 05/16/24 16:35 Pain Score (VAS): 4 I/O: Intake & Output 05/16/24 05/17/24 05/17/24 23:59 07:59 15:59 Intake Total 500 1300 993.3 Balance 500 1300 993.3 Laboratory Tests 05/17/24 05:53 05/17/24 05:53 05/16/24 05/17/24 11:11 05:53 WBC 13.6 H 24.4 H RBC 4.54 3.97 L Hgb 14.0 11.9 L Hct 43.1 38.4 MCV 94.9 96.7 MCH 30.8 30.0 MCHC 32.5 31.0 L RDW 13.4 13.5 Plt Count 531 H 435 H MPV 9.6 9.5 Immature Gran % (Auto) 0.5 Neut % (Auto) 50.8 Lymph % (Auto) 37.5 [place] % (Auto) 7.1 Eos % (Auto) 2.9 Baso % (Auto) 1.2 Lymph # (Auto) 5.10 H [place] # (Auto) 1.0 H Eos # (Auto) 0.4 H Baso # (Auto) 0.2 H Abs Immat Gran (auto) 0.07 H Absolute Neuts (auto) 6.9 H Absolute Nucleated RBC 0.000 Nucleated RBC % 0.0 Sodium 141 139 Potassium 3.8 4.2 Chloride 103 102 Carbon Dioxide 30 29 Anion Gap 8 8 BUN 10 8 Creatinine 0.63 L 0.65 L Estim Creat Clear Calc 70 68 Estimated GFR > 60 > 60 Glucose 76 139 H Calcium 9.2 8.6 C-Reactive Protein 0.6 Patient Feedback: Patient satisfied with anesthetic care.
[2024-05-17] MEDS: LACTATED RINGERS 1,000 ML 80 ML IV CONT (15:31)
[2024-05-17] MEDS: ALVIMOPAN 12 MG CAPSULE PO (20:09)
[2024-05-18 00:10] VITALS: BP 142/86; PULSE 99; RESP 16; TEMP 37.3; O2SAT 94
[2024-05-18] MEDS: oxyCODONE/ACETAMINOPHEN (*CRX) 5-325 MG TABLET 1 TABLET PO ×3 (00:21→20:29)
[2024-05-18] MEDS: LACTATED RINGERS 1,000 ML 80 ML IV CONT (04:13)
[2024-05-18 06:19] VITALS: BP 139/78; PULSE 86; RESP 14; TEMP 37; O2SAT 97
[2024-05-18 06:41] LABS: Basophils Absolute Auto 0.1 K/mm3 (0.0-0.1); Basophils Percent Auto 0.6 % (0.2-1.2); Eosinophils Absolute Auto 0.2 K/mm3 (0-0.3); Eosinophils Percent Auto 1.4 % (0-4.4); Hematocrit 36.8 % (37.0-47.0); Hemoglobin 11.4 g/dL (12.0-15.0); Immature Granulocyte Absolute 0.08 K/mm3 (0.00-0.031); Immature Granulocyte Percent A 0.5 % (0-0.5); Lymphocytes Absolute Auto 2.77 K/mm3 (0.9-3.2); Lymphocytes Percent Auto 17.9 % (18.3-44.2); Mean Corpuscular Hemoglobin 29.9 pg (26-34); Mean Corpuscular Volume 96.6 fl (80-100); Mean Platelet Volume 9.5 fl (7.4-10.4); Monocytes Absolute Auto 1.2 K/mm3 (0.1-0.6); Monocytes Percent Auto 7.7 % (2.6-8.5); Neutrophils Absolute Auto 11.1 K/mm3 (1.3-6.7); Neutrophils Percent Auto 71.9 % (45.5-73.1); Platelet Count Result 391 k/mm3 (150-375); Red Blood Count 3.81 M/mm3 (4.2-5.4); Red Cell Distribution Width 13.7 % (11.5-14.5); White Blood Count 15.5 K/mm3 (4.5-10.0)
[2024-05-18 06:59] LABS: Anion Gap 5 mmol/L (4-12); Blood Urea Nitrogen 6 mg/dL (7-17); Calcium 8.7 mg/dL (8.4-10.2); Carbon Dioxide 33 mmol/L (22-30); Chloride 101 mmol/L (98-107); Estimated CRCL calculation 72 ml/min; Estimated Glomerular Filt Rate > 60; Glucose 119 mg/dL (65-110); Potassium 4.3 mmol/L (3.4-5.0); Sodium 139 mmol/L (137-145)
[2024-05-18 07:11] LABS: CRP 20.5 mg/dL (<1.0)
[2024-05-18 09:05] VITALS: O2SAT 98
[2024-05-18] MEDS: ALVIMOPAN 12 MG CAPSULE PO ×2 (09:05→20:32)
[2024-05-18] MEDS: FAMOTIDINE 20 MG TABLET PO ×2 (09:05→20:32)
[2024-05-18] MEDS: ENOXAPARIN 40 MG/0.4 ML SYRINGE SUB-Q (09:05)
[2024-05-18 14:20] VITALS: BP 144/84; PULSE 98; RESP 16; TEMP 37.1; O2SAT 96
--- NOTE | 2024-05-18 17:50 | PM.PNGS ---
Progress Note: A&P Assessment and Plan (1) History of colectomy: Code(s): Z90.49 - Acquired absence of other specified parts of digestive tract Status: Acute Assessment and Plan: Doing very well. Ambulating and voiding without difficulty. Labs look good. Will advance diet to soft diet. Increase ambulation. If continues to improve, possibly home tomorrow. (2) Obstruction of colon: Code(s): K56.609 - Unspecified intestinal obstruction, unspecified as to partial versus complete obstruction Status: Chronic Assessment and Plan: Status post transverse diverting colostomy which was closed at surgery yesterday (3) Colon, diverticulosis: Code(s): K57.30 - Diverticulosis of large intestine without perforation or abscess without bleeding Status: Chronic Assessment and Plan: Suspected cause of obstruction based on sigmoidoscopy. Path pending (4) Colostomy in place: Code(s): Z93.3 - Colostomy status Status: Chronic Assessment and Plan: Closed at surgery yesterday. Subjective Subjective Date/Time Seen: 05/18/24 06:50 Post Op day: 2 Patient reports: feels better, pain is less, tolerating liquids well, voiding w/o difficulty, flatus, no bowel movement and afebrile Exam GI: Inspection: incision (Dry and healing well.) GI Palp: Yes Soft to palpation and Yes Tenderness to palpation present (GI) Objective Data Vital Signs Vital Signs: Vital Signs - 24 hr 05/17/24 21:34 05/18/24 00:10 05/18/24 06:19 Temperature 37.2 C 37.3 C 37.0 C Pulse Rate 104 H 99 86 Respiratory Rate 16 16 14 Blood Pressure 138/83 142/86 H 139/78 Pulse Oximetry 94 94 97 Oxygen Delivery 05/18/24 09:05 05/18/24 14:20 Temperature 37.1 C Pulse Rate 98 Respiratory Rate 16 Blood Pressure 144/84 H Pulse Oximetry 98 96 Oxygen Delivery Room Air Intake/Output Intake/Output: Intake & Output 05/15/24 05/16/24 05/17/24 05/18/24 23:59 23:59 23:59 23:59 Intake Total 650 2870.0 2019 Balance 650 2870.0 2019 Meds/Results Medications: Active Medications Generic Name Dose Route Start Last Admin Trade Name Freq PRN Reason Stop Dose Admin Acetaminophen 500 mg 05/16/24 16:53 Acetaminophen 500 Mg Tablet PO Q6H PRN Pain Rated 1-3 Alvimopan 12 mg 05/17/24 21:00 05/18/24 09:05 Alvimopan 12 Mg Capsule PO 05/24/24 20:59 12 mg Q12HR DAYNA Administration Enoxaparin Sodium 40 mg 05/17/24 09:00 05/18/24 09:05 Enoxaparin 40 Mg/0.4 Ml Syringe SUB-Q 40 mg DAILY DAYNA Administration Famotidine 20 mg 05/17/24 09:00 05/18/24 09:05 Famotidine 20 Mg Tablet PO 20 mg Q12HR DAYNA Administration Ibuprofen 800 mg in 200 mls @ 400 mls/hr 05/16/24 16:53 Caldolor 800 Mg/200 Ml IVPB Q6H PRN Breakthrough Pain Rated 1-3 or NPO Melatonin 12 mg 05/16/24 21:00 Melatonin 3 Mg Tablet PO HS PRN sleep Morphine Sulfate 1 mg 05/18/24 07:25 Morphine Sulfate (*Crx) 2 Mg/Ml Inj IV PUSH Q2H PRN Breakthrough Pain Rated 4-6 or NPO Morphine Sulfate 2 mg 05/18/24 07:25 Morphine Sulfate (*Crx) 2 Mg/Ml Inj IV PUSH Q2H PRN Breakthrough Pain Rated 7-10 or NPO Naloxone HCl 0.1 mg 05/16/24 16:53 Naloxone Hcl 0.4 Mg/Ml Vial IV PUSH Q2M PRN Opiate Reversal Nicotine 1 patch 05/18/24 08:57 05/18/24 09:05 Nicotine (*Pbkc) 14 Mg Patch TOPICAL Not Given Q24H [facility] Ondansetron HCl 4 mg 05/16/24 16:53 05/16/24 17:47 Ondansetron Inj 4 Mg/2 Ml Vial IV PUSH 4 mg Q4H PRN Administration Nausea And Vomiting Oxycodone/Acetaminophen 1 tablet 05/16/24 16:53 05/18/24 12:28 Oxycodone/Acetaminophen (*Crx) 5-325 Mg Tablet PO 1 tablet Q4H PRN Administration Pain Rated 4-6 Labs Labs: Laboratory Results - last 24 hr 05/18/24 05:58 WBC 15.5 H RBC 3.81 L Hgb 11.4 L Hct 36.8 L MCV 96.6 MCH 29.9 MCHC 31.0 L RDW 13.7 Plt Count 391 H MPV 9.5 Immature Gran % (Auto) 0.5 Neut % (Auto) 71.9 Lymph % (Auto) 17.9 L [place] % (Auto) 7.7 Eos % (Auto) 1.4 Baso % (Auto) 0.6 Lymph # (Auto) 2.77 [place] # (Auto) 1.2 H Eos # (Auto) 0.2 Baso # (Auto) 0.1 Abs Immat Gran (auto) 0.08 H Absolute Neuts (auto) 11.1 H Absolute Nucleated RBC 0.000 Nucleated RBC % 0.0 Sodium 139 Potassium 4.3 Chloride 101 Carbon Dioxide 33 H Anion Gap 5 BUN 6 L Creatinine 0.61 L Estim Creat Clear Calc 72 Estimated GFR > 60 Glucose 119 H Calcium 8.7 C-Reactive Protein 20.5 H
[2024-05-18 20:25] VITALS: BP 134/78; PULSE 94; RESP 16; TEMP 36.4; O2SAT 93
[2024-05-19 06:04] VITALS: BP 134/82; PULSE 91; RESP 14; TEMP 37; O2SAT 96
[2024-05-19 06:13] LABS: Basophils Absolute Auto 0.1 K/mm3 (0.0-0.1); Basophils Percent Auto 0.8 % (0.2-1.2); Eosinophils Absolute Auto 0.7 K/mm3 (0-0.3); Eosinophils Percent Auto 5.4 % (0-4.4); Hematocrit 34.1 % (37.0-47.0); Hemoglobin 10.9 g/dL (12.0-15.0); Immature Granulocyte Absolute 0.05 K/mm3 (0.00-0.031); Immature Granulocyte Percent A 0.4 % (0-0.5); Lymphocytes Percent Auto 19.2 % (18.3-44.2); Mean Corpuscular Hemoglobin 30.3 pg (26-34); Mean Corpuscular Volume 94.7 fl (80-100); Mean Platelet Volume 9.2 fl (7.4-10.4); Monocytes Absolute Auto 0.8 K/mm3 (0.1-0.6); Neutrophils Absolute Auto 8.5 K/mm3 (1.3-6.7); Neutrophils Percent Auto 68.2 % (45.5-73.1); Platelet Count Result 337 k/mm3 (150-375); Red Cell Distribution Width 13.3 % (11.5-14.5); White Blood Count 12.5 K/mm3 (4.5-10.0)
[2024-05-19 06:26] LABS: Anion Gap 7 mmol/L (4-12); Blood Urea Nitrogen 8 mg/dL (7-17); Calcium 8.7 mg/dL (8.4-10.2); Carbon Dioxide 30 mmol/L (22-30); Chloride 100 mmol/L (98-107); Estimated CRCL calculation 72 ml/min; Estimated Glomerular Filt Rate > 60; Glucose 109 mg/dL (65-110); Potassium 4.1 mmol/L (3.4-5.0); Sodium 137 mmol/L (137-145)
[2024-05-19] MEDS: oxyCODONE/ACETAMINOPHEN (*CRX) 5-325 MG TABLET 1 TABLET PO (08:29)
[2024-05-19] MEDS: FAMOTIDINE 20 MG TABLET PO ×2 (08:29→21:54)
[2024-05-19] MEDS: ALVIMOPAN 12 MG CAPSULE PO ×2 (08:29→21:54)
[2024-05-19 08:30] VITALS: O2SAT 98
[2024-05-19] MEDS: ENOXAPARIN 40 MG/0.4 ML SYRINGE SUB-Q (08:30)
--- NOTE | 2024-05-19 09:47 | PM.PNGS ---
Progress Note: A&P Assessment and Plan (1) History of colectomy: Code(s): Z90.49 - Acquired absence of other specified parts of digestive tract Status: Acute Assessment and Plan: Continues to do well. Feels bloated today and no bowel movement as yet. [place] lives over 45 minutes [place] here. Her H&H shows lower blood counts but she has been chronically anemic. Will recheck CBC and continue ambulation today. Probably home tomorrow. (2) Obstruction of colon: Code(s): K56.609 - Unspecified intestinal obstruction, unspecified as to partial versus complete obstruction Status: Chronic Assessment and Plan: Pathology shows acute and chronic diverticulitis with adhesions. This was the source of obstruction (3) Colostomy in place: Code(s): Z93.3 - Colostomy status Status: Chronic Assessment and Plan: Closed at surgery on 05/16/2024. (4) Diverticulitis of large intestine with perforation: Qualifiers: Diverticulitis bleeding: without bleeding Qualified Code(s): K57.20 - Diverticulitis of large intestine with perforation and abscess without bleeding Code(s): K57.20 - Diverticulitis of large intestine with perforation and abscess without bleeding Status: Acute Assessment and Plan: Per pathology report (5) Former smoker: Code(s): Z87.891 - Personal history of nicotine dependence Status: Acute Assessment and Plan: Stop smoking in late March, on nicotine patch and weaning off. Subjective Subjective Date/Time Seen: 05/19/24 09:47 Post Op day: 3 Patient reports: pain is less (Feels bloated), tolerating a regular diet, voiding w/o difficulty, flatus, no bowel movement (Feels bloated like she needs to have a bowel movement) and afebrile Exam Const: General: cooperative, comfortable, alert, awake, Physically active and thin Orientation/consciousness: patient oriented x3 GI: Inspection: non-distended, incision (Minimal drainage, looks good, no erythema or purulent drainage) and scaphoid GI Palp: Yes Soft to palpation and Yes Tenderness to palpation present (GI) Auscultation: Hypoactive bowel sounds present Objective Data Vital Signs Vital Signs: Vital Signs - 24 hr 05/18/24 14:20 05/18/24 20:25 05/18/24 20:32 Temperature 37.1 C 36.4 C L Pulse Rate 98 94 Respiratory Rate 16 16 Blood Pressure 144/84 H 134/78 Pulse Oximetry 96 93 Oxygen Delivery Room Air 05/19/24 06:04 05/19/24 08:30 Temperature 37.0 C Pulse Rate 91 Respiratory Rate 14 Blood Pressure 134/82 Pulse Oximetry 96 98 Oxygen Delivery Room Air Intake/Output Intake/Output: Intake & Output 05/16/24 05/17/24 05/18/24 05/19/24 23:59 23:59 23:59 23:59 Intake Total 650 2870.0 2810 240 Balance 650 2870.0 2810 240 Meds/Results Medications: Active Medications Generic Name Dose Route Start Last Admin Trade Name Freq PRN Reason Stop Dose Admin Acetaminophen 500 mg 05/16/24 16:53 Acetaminophen 500 Mg Tablet PO Q6H PRN Pain Rated 1-3 Alvimopan 12 mg 05/17/24 21:00 05/19/24 08:29 Alvimopan 12 Mg Capsule PO 05/24/24 20:59 12 mg Q12HR DANYA Administration Enoxaparin Sodium 40 mg 05/17/24 09:00 05/19/24 08:30 Enoxaparin 40 Mg/0.4 Ml Syringe SUB-Q 40 mg DAILY DAYNA Administration Famotidine 20 mg 05/17/24 09:00 05/19/24 08:29 Famotidine 20 Mg Tablet PO 20 mg Q12HR DAYNA Administration Ibuprofen 800 mg in 200 mls @ 400 mls/hr 05/16/24 16:53 Caldolor 800 Mg/200 Ml IVPB Q6H PRN Breakthrough Pain Rated 1-3 or NPO Melatonin 12 mg 05/16/24 21:00 Melatonin 3 Mg Tablet PO HS PRN sleep Morphine Sulfate 1 mg 05/18/24 07:25 Morphine Sulfate (*Crx) 2 Mg/Ml Inj IV PUSH Q2H PRN Breakthrough Pain Rated 4-6 or NPO Morphine Sulfate 2 mg 05/18/24 07:25 Morphine Sulfate (*Crx) 2 Mg/Ml Inj IV PUSH Q2H PRN Breakthrough Pain Rated 7-10 or NPO Naloxone HCl 0.1 mg 05/16/24 16:53 Naloxone Hcl 0.4 Mg/Ml Vial IV PUSH Q2M PRN Opiate Reversal Nicotine 1 patch 05/18/24 08:57 05/19/24 08:28 Nicotine (*Pbkc) 14 Mg Patch TOPICAL Not Given Q24H PENDING SALE TO [facility] Ondansetron HCl 4 mg 05/16/24 16:53 05/16/24 17:47 Ondansetron Inj 4 Mg/2 Ml Vial IV PUSH 4 mg Q4H PRN Administration Nausea And Vomiting Oxycodone/Acetaminophen 1 tablet 05/16/24 16:53 05/19/24 08:29 Oxycodone/Acetaminophen (*Crx) 5-325 Mg Tablet PO 1 tablet Q4H PRN Administration Pain Rated 4-6 Labs Labs: Laboratory Results - last 24 hr 05/19/24 06:01 WBC 12.5 H RBC 3.60 L Hgb 10.9 L Hct 34.1 L MCV 94.7 MCH 30.3 MCHC 32.0 RDW 13.3 Plt Count 337 MPV 9.2 Immature Gran % (Auto) 0.4 Neut % (Auto) 68.2 Lymph % (Auto) 19.2 [place] % (Auto) 6.0 Eos % (Auto) 5.4 H Baso % (Auto) 0.8 Lymph # (Auto) 2.40 [place] # (Auto) 0.8 H Eos # (Auto) 0.7 H Baso # (Auto) 0.1 Abs Immat Gran (auto) 0.05 H Absolute Neuts (auto) 8.5 H Absolute Nucleated RBC 0.000 Nucleated RBC % 0.0 Sodium 137 Potassium 4.1 Chloride 100 Carbon Dioxide 30 Anion Gap 7 BUN 8 Creatinine 0.61 L Estim Creat Clear Calc 72 Estimated GFR > 60 Glucose 109 Calcium 8.7
[2024-05-19 10:24] VITALS: O2SAT 97
[2024-05-19 14:00] VITALS: BP 129/84; PULSE 88; RESP 18; TEMP 36.9; O2SAT 97
[2024-05-19 21:02] VITALS: BP 137/82; PULSE 91; RESP 14; TEMP 36.9; O2SAT 97
[2024-05-20 05:33] VITALS: BP 144/91; PULSE 108; RESP 16; TEMP 36.5; O2SAT 98
[2024-05-20 06:18] LABS: Basophils Absolute Auto 0.1 K/mm3 (0.0-0.1); Basophils Percent Auto 0.5 % (0.2-1.2); Eosinophils Absolute Auto 0.4 K/mm3 (0-0.3); Eosinophils Percent Auto 3.5 % (0-4.4); Hematocrit 37.6 % (37.0-47.0); Hemoglobin 11.6 g/dL (12.0-15.0); Immature Granulocyte Absolute 0.05 K/mm3 (0.00-0.031); Immature Granulocyte Percent A 0.4 % (0-0.5); Lymphocytes Absolute Auto 2.13 K/mm3 (0.9-3.2); Lymphocytes Percent Auto 18.4 % (18.3-44.2); Mean Corpuscular HGB Conc 30.9 g/dl (32-36); Mean Corpuscular Hemoglobin 29.7 pg (26-34); Mean Corpuscular Volume 96.2 fl (80-100); Mean Platelet Volume 9.8 fl (7.4-10.4); Monocytes Absolute Auto 0.8 K/mm3 (0.1-0.6); Monocytes Percent Auto 6.6 % (2.6-8.5); Neutrophils Absolute Auto 8.2 K/mm3 (1.3-6.7); Neutrophils Percent Auto 70.6 % (45.5-73.1); Platelet Count Result 440 k/mm3 (150-375); Red Blood Count 3.91 M/mm3 (4.2-5.4); Red Cell Distribution Width 13.4 % (11.5-14.5); White Blood Count 11.6 K/mm3 (4.5-10.0)
[2024-05-20 06:24] LABS: Anion Gap 6 mmol/L (4-12); Blood Urea Nitrogen 10 mg/dL (7-17); Calcium 9.2 mg/dL (8.4-10.2); Carbon Dioxide 32 mmol/L (22-30); Chloride 99 mmol/L (98-107); Estimated CRCL calculation 61 ml/min; Estimated Glomerular Filt Rate > 60; Glucose 125 mg/dL (65-110); Potassium 4.1 mmol/L (3.4-5.0); Sodium 137 mmol/L (137-145)
[2024-05-20] MEDS: ALVIMOPAN 12 MG CAPSULE PO (08:58)
[2024-05-20] MEDS: FAMOTIDINE 20 MG TABLET PO (08:58)
[2024-05-20] MEDS: ENOXAPARIN 40 MG/0.4 ML SYRINGE SUB-Q (08:59)
--- NOTE | 2024-05-20 13:18 | PM.DS ---
DS: Admitting Diagnosis Discharge Date 05/20/2024 Admitting Diagnosis Sigmoid colon obstruction Transverse diverting colostomy status DS: Discharge Diagnosis Discharge Diagnosis (1) Diverticulitis of large intestine with perforation: Qualifiers: Diverticulitis bleeding: without bleeding Qualified Code(s): K57.20 - Diverticulitis of large intestine with perforation and abscess without bleeding Code(s): K57.20 - Diverticulitis of large intestine with perforation and abscess without bleeding Status: Chronic Assessment and Plan: Pathology showed acute and chronic diverticulitis with perforation and adhesions (2) Obstruction of colon: Code(s): K56.609 - Unspecified intestinal obstruction, unspecified as to partial versus complete obstruction Status: Chronic Assessment and Plan: Due to diverticulitis (3) History of colectomy: Code(s): Z90.49 - Acquired absence of other specified parts of digestive tract Status: Acute Assessment and Plan: Sigmoid colon resection with EEA colorectal anastomosis as well as closure transverse colostomy was performed on 05/16/[address] Clinton (4) Colostomy in place: Code(s): Z93.3 - Colostomy status Status: Chronic Assessment and Plan: Transverse colostomy closed at surgical procedure (5) Former smoker: Code(s): Z87.891 - Personal history of nicotine dependence Status: Chronic Assessment and Plan: Stopped smoking after discharge from her hospitalization in late March. Has not restarted. DS: Summary Hospital Course Hospital Course: Patient presented on 04/06/2024 with severe abdominal distension, pain and evidence on CT scan of colonic obstruction in the sigmoid colon. She presented to the emergency room at [facility] in [place] and was transferred to [facility]. She was taken to surgery that day by Dr. Clinton and diverting transverse colostomy was performed. Patient recovered well after this surgery. She had a colonoscopy while still in the hospital which showed evidence of a benign stricture, probably diverticular in nature. After discharge, patient continued to improve. She stopped smoking with this admission in late March and did not restart. After discussion in the office, patient underwent bowel prep both at home and with distal transverse colonic irrigation by the enterostomal therapy nurses. She was taken to surgery on 05/16/2024. Her transverse colostomy was closed with hand-sewn 2 layer closure. She then underwent sigmoidectomy with stapled 33 EEA colorectal anastomosis. Pathology showed Sigmoid colon, sigmoidectomy: - Acute and chronic diverticulitis with area of rupture - Fibrovascular adhesions Patient did well after surgery. She started on clear liquids the night of surgery. She was able to ambulate the day after surgery with minimal difficulty. Her diet was gradually advanced. She became comfortable on oral analgesics only. She had a bowel movement on postoperative day 3. She was able to ambulate independently, was tolerating solid food, and was comfortable on oral analgesics on postop day 4., 05/20/2024. She was discharged on postop day 4. Status at Discharge Functional status at discharge: independent ambulation Overall status at discharge: patient is progressing back to baseline Time Spent with Patient Time attestation: Total time spent providing and/or coordinating discharge services: Time spent: Less than 30 minutes DS: Data Data Completed and Pending Completed studies during hospitalization: Pending at discharge 05/16/24 13:56 Surgical [PTH] Routine Labs on day of discharge: Labs from last 24 hours 05/20/24 05:28 WBC 11.6 H RBC 3.91 L Hgb 11.6 L Hct 37.6 MCV 96.2 MCH 29.7 MCHC 30.9 L RDW 13.4 Plt Count 440 H MPV 9.8 Immature Gran % (Auto) 0.4 Neut % (Auto) 70.6 Lymph % (Auto) 18.4 [place] % (Auto) 6.6 Eos % (Auto) 3.5 Baso % (Auto) 0.5 Lymph # (Auto) 2.13 [place] # (Auto) 0.8 H Eos # (Auto) 0.4 H Baso # (Auto) 0.1 Abs Immat Gran (auto) 0.05 H Absolute Neuts (auto) 8.2 H Absolute Nucleated RBC 0.000 Nucleated RBC % 0.0 Sodium 137 Potassium 4.1 Chloride 99 Carbon Dioxide 32 H Anion Gap 6 BUN 10 Creatinine 0.73 Estim Creat Clear Calc 61 Estimated GFR > 60 Glucose 125 H Calcium 9.2 Discharge Plan Discharge Attending physician on discharge: Nic Clinton Discharging Clinician: Nic Clinton Anticipated Discharge Date/Time: 05/20/24 13:31 Patient Disposition: Home Activity: may shower, no straining and as tolerated Diet: regular Wound Care Instructions: keep dressing dry and remove dressing to shower Discharge Instructions: Ambulate 3-4 x per day and as tolerated. No lifting over 15-20lbs. May bathe or shower. Stairs are OK. May drive a car in 3 days. Remove any dressings before shower and replace after. Keep and replace a dry dressing over the abdominal incision until Tuesday05/23/2024. May leave incision open thereafter. Call Dr. Clinton for severe abdominal pain, persistent vomiting, we persistent wound drainage or bleeding, temp over 100.5, or other significant change in condition. Prescription pain medications sent to your pharmacy. Please try to use Tylenol or ibuprofen and reserve the prescription pain medication when this is ineffective. Patient Instructions: Antibiotic Form Patient Language: Romanian Stand Alone Forms: General Discharge Information Follow-up/Referrals: Nic Clinton MD [Physician] - 2 Weeks Discharge Medications: New oxycodone-acetaminophen [Percocet] 5-325 mg tablet 0.5 - 1 tablet PO Q4H PRN (Reason: pain) Qty: 14 0RF Continued Estroven Cmplt Menopause Rlf 4 mg tablet See Rx Instructions PO DAILY@1600 Rx Instructions: orally DAILY@1600. melatonin 12 mg tablet 12 mg PO HS PRN (Reason: sleep) nicotine 14 mg/24 hr patch 24 hour 1 patch topical Q24H Discontinued metronidazole 500 mg tablet 500 mg PO .COMPLEX Qty: 3 0RF Rx Instructions: 500 mg orally at 1:00pm, 2:00pm, and 11:00pm the day before surgery; ciprofloxacin HCl 500 mg tablet 500 mg PO .COMPLEX Qty: 1 0RF Rx Instructions: 500 mg orally at 2:00pm the day before surgery; azithromycin 250 mg tablet See Rx Instructions PO .COMPLEX Qty: 6 1RF Rx Instructions: For 250 mg dose pack: take 500 mg today (day 1), then 250 mg for 4 days (days 2-5) PO Date of admission: 05/16/24 16:53 Primary Care Provider: Jennifer,Cheryl Lewis Admitting Provider: Nic Clinton Attending physician on admission: Nic Clinton Condition: Improved
== END 2024-05-20 14:10 | disposition home or self-care (01) | DRG 331 ==
LOC: ANH3MEDSUR 17:24
PROVIDERS: Admitting Provider Surgery; PCP Family Medicine; Visit Provider Surgery
PROC: 0DTN0ZZ Resection of Sigmoid Colon, Open Approach (ICD-10-PCS; CPT 44620; principal; 2024-05-16 11:00)
PROC: 0DTN0ZZ Resection of Sigmoid Colon, Open Approach (ICD-10-PCS; CPT 44143; 2024-05-16 11:00)
DX: K57.20 Diverticulitis of large intestine with perforation and abscess without bleeding (principal); M41.9 Scoliosis, unspecified; K66.0 Peritoneal adhesions (postprocedural) (postinfection); Z87.891 Personal history of nicotine dependence; Z93.3 Colostomy status
CPT/HCPCS: 36415; 80048; 85025; 85027; 86140; 88307; A9270; C1729; J0690; J1100; J1650; J1836; J1885; J2003; J2250; J2270; J2405; J2704; J3010; J7030; J7120

== ENCOUNTER 2024-10-30 10:14 | Outpatient (CLI) | payer BC, SELFPAY ==
--- NOTE | ~2024-10-30 | XR_ITS ---
[id number] Indication: NUMBNESS AND TINGLING OF BOTH UE Comparison: None Findings: Grade 1 anterolisthesis of C3 on C4 and C4 on C5, grade 1 retrolisthesis C5 on C6. No fracture identified. Moderate to severe loss of disc height throughout. Soft tissues unremarkable Impression: No acute abnormality. Reviewed, dictated and finalized at location A. Impression: No acute abnormality.
== END 2024-10-30 10:15 | disposition home or self-care (01) ==
LOC: CHSIMG 10:16
PROVIDERS: PCP Family Medicine; Visit Provider Family Medicine
DX: R20.0 Anesthesia of skin (principal); R20.2 Paresthesia of skin
CPT/HCPCS: 72040

== ENCOUNTER 2024-11-10 09:46 | Outpatient (CLI) | payer BC, SELFPAY ==
--- NOTE | ~2024-11-10 | MR_ITS ---
EXAMINATION: MR cervical spine wo con DATE: 11/10/2024 10:36 INDICATION: Numbness of the hands. TECHNIQUE: Magnetic resonance imaging (MRI) of the cervical spine was performed without intravenous contrast. Sequences included sagittal T2-weighted FSE, sagittal T2-weighted FS FSE, sagittal T1-weighted FSE, axial MERGE, and axial T2-weighted FSE. COMPARISON: Cervical spine radiographs 10/30/2024 FINDINGS: There is 9 degrees levocurvature of cervicothoracic spine. There is 3 mm anterolisthesis of C3 on C4 and C4 on C5 and 2 mm retrolisthesis of C5 on C6 and C6 on C7. Vertebral body heights are normal. There is mildly decreased disc height at C3-C4 and C4-C5 and severely decreased disc height at C5-C6 and C6-C7. The spinal cord signal intensity is normal. The following disc levels are specifically discussed: C2-C3: The disc does not extend beyond the endplate margin. There is mild left uncovertebral joint osteoarthritis. There is severe bilateral facet joint osteoarthritis. There is no neural foraminal stenosis. There is no central canal stenosis. C3-C4: There is a central extrusion. There is severe right and moderate left uncovertebral joint osteoarthritis. There is severe bilateral facet joint osteoarthritis. There is moderate bilateral neural foraminal stenosis. There is no central canal stenosis. C4-C5: There is a central protrusion. There is mild right and severe left uncovertebral joint osteoarthritis. There is severe bilateral facet joint osteoarthritis. There is moderate left neural foraminal stenosis. There is no central canal stenosis. C5-C6: The disc is bulging. There is severe bilateral uncovertebral joint osteoarthritis. There is severe right and moderate left facet joint osteoarthritis. There is moderate right and mild left neural foraminal stenosis. There is mild central canal stenosis. C6-C7: The disc is bulging. There is severe bilateral uncovertebral joint osteoarthritis. There is severe right and moderate left facet joint osteoarthritis. There is mild bilateral neural foraminal stenosis. There is mild central canal stenosis. C7-T1: There is a central extrusion. There is no uncovertebral joint osteoarthritis. There is severe bilateral facet joint osteoarthritis. There is mild bilateral neural foraminal stenosis. There is mild central canal stenosis. IMPRESSION: 1. Severe cervical spondylosis. Reviewed, dictated and finalized at location E.
== END 2024-11-10 09:47 | disposition home or self-care (01) ==
LOC: CHSIMG 09:47
PROVIDERS: PCP Family Medicine; Visit Provider Family Medicine
DX: M43.12 Spondylolisthesis, cervical region (principal)
CPT/HCPCS: 72141

== ENCOUNTER 2024-11-13 07:45 | Outpatient (CLI) | payer BC, SELFPAY ==
--- NOTE | ~2024-11-13 | CT_ITS ---
EXAMINATION: CT abdomen pelvis wo con DATE: 11/13/2024 08:07 INDICATION: Incisional hernia without obstruction or gangrene. TECHNIQUE: Computed tomography (CT) of the abdomen and pelvis was performed without intravenous contrast. Automated exposure control and iterative reconstruction technique were employed. The dose-length product was 231.59 mGy-cm. COMPARISON: CT abdomen and pelvis 04/06/2024 FINDINGS: The visualized portions of the lung bases demonstrate mild atelectasis. No pleural effusion. The heart size is normal. There are coronary artery calcifications. No pericardial effusion. The liver, gallbladder, spleen, pancreas, adrenal glands, and kidneys are normal. There is no urolithiasis. There is an anastomosis in the rectosigmoid. There is a supraumbilical ventral hernia containing nonobstructed transverse colon. The appendix is normal. There are no pathologically enlarged lymph nodes. There is no free intraperitoneal fluid. There is lumbar levoscoliosis and severe spondylosis. There are changes of posterior fusion procedure from the thoracic spine to L2 with instrumentation. IMPRESSION: 1. Supraumbilical ventral hernia containing nonobstructed transverse colon. Reviewed, dictated and finalized at location E.
--- OUTSIDE RECORDS SUMMARY | 2024-11-13 07:49 | XMS_ITS | Clinical Summary ---
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
== END 2024-11-13 07:46 | disposition home or self-care (01) ==
LOC: CHSIMG 07:47
PROVIDERS: PCP Family Medicine; Visit Provider Surgery
DX: K43.2 Incisional hernia without obstruction or gangrene (principal)
CPT/HCPCS: 74176

== ENCOUNTER 2025-01-07 09:00 | Outpatient (CLI) | payer BC, SELFPAY ==
--- NOTE | ~2025-01-07 | XR_ITS ---
EXAMINATION: XR chest 2V, 01/07/2025 9:15 FRIT BURNER HISTORY: K43.2 - Incisional hernia without obstruction or gangrene COMPARISON: No comparisons available. Technique: 2 views obtained. Findings: The lungs are clear, no effusion. No pneumothorax. Heart is normal size. Mediastinal and hilar contours are within normal limits. Postsurgical changes noted in the thoracic spine Impression: No acute cardiopulmonary abnormality. Reviewed, dictated and finalized at location P. BURNER Impression: No acute cardiopulmonary abnormality.
--- NOTE | 2025-01-07 09:11 | ECG_ITS ---
Test Date: 2025-01-07 09:20:29 Measurements Intervals [place] Rate: 78 P: 62 NM: 221 QRS: -23 QRSD: 96 T: 65 QT: 353 QTc: 404 Interpretive Statements SINUS RHYTHM WITH FIRST DEGREE AV BLOCK INCOMPLETE RIGHT BUNDLE BRANCH BLOCK LOW QRS VOLTAGE IN PRECORDIAL LEADS DELAYED PRECORDIAL R/S TRANSITION BORDERLINE ECG Compared to ECG 05/07/2024 13:07:36 First degree AV block now present Electronically Signed On 01-07-2025 09:33:44 WARE DRESSER by Erick Ferrell D.O.
[2025-01-07 09:23] LABS: Hematocrit 39.0 % (35.0-49.0); Hemoglobin 13.1 g/dL (12.0-15.0); Immature Granulocyte Percent A 0.4 % (0.0-0.0); Lymphocytes Absolute Auto 3.69 K/mm3 (1.10-4.50); Mean Corpuscular HGB Conc 33.6 g/dL (32-36); Mean Corpuscular Hemoglobin 31.7 pg (27.0-31.0); Mean Corpuscular Volume 94.4 fL (78.0-102.0); Nucleated Red Blood Cells Absolute Auto 0.00 K/mm3 (0.00-0.00); Nucleated Red Blood Cells Perc 0.0 % (0-0.0); Platelet Count Result 334 K/mm3 (150-420); Red Blood Count 4.13 M/mm3 (4.20-5.40); White Blood Count 9.5 K/mm3 (4.8-10.8)
--- OUTSIDE RECORDS SUMMARY | 2025-01-07 09:39 | XMS_ITS | Clinical Summary ---
Author Organization 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
[2025-01-07 10:06] LABS: Anion Gap 10 mmol/L (4-12); Blood Urea Nitrogen 13 mg/dL (7-17); Calcium 9.6 mg/dL (8.4-10.2); Carbon Dioxide 26 mmol/L (22-30); Chloride 104 mmol/L (98-107); Estimated Glomerular Filt Rate > 60; Glucose 114 mg/dL (65-110); Osmolality Calculated 291 mOsm/kg (285-295); Potassium 4.3 mmol/L (3.4-5.0); Sodium 140 mmol/L (137-145)
== END 2025-01-07 09:01 | disposition home or self-care (01) ==
LOC: CHSLAB 09:01
PROVIDERS: PCP Family Medicine; Visit Provider Surgery
DX: Z01.818 Encounter for other preprocedural examination (principal); K43.2 Incisional hernia without obstruction or gangrene; I44.0 Atrioventricular block, first degree; I45.19 Other right bundle-branch block
CPT/HCPCS: 36415; 71046; 80048; 85025; 93005

== ENCOUNTER 2025-01-10 14:55 | Inpatient (IN) | payer BC, SELFPAY ==
[2025-01-01 13:09] VITALS: BMI 22.8
--- NOTE | 2025-01-01 13:27 | PC.NURSE ---
[facility] has started construction of its new state of the art ER which will open Spring 2026. With this, we anticipate parking may be a challenge for some our surgical patients and families. Parking spaces are limited but are available for all Surgical, obstetrics, and ER patients sharing this lot. If you arrive and find you are having a hard time finding a parking space, please note that we understand the challenges, please drive around the hospital and park near Hospital Entrance 1. When you enter this entrance, you can ask a volunteer to direct or take you back to the surgical waiting area to check in. We appreciate everyone?s understanding of these expected challenges while we build for your future. Report to the Outpatient Waiting Room, entrance under the green pavilion located off [address], at time 0800 on date 01/09/25. Planned Procedure Time: 1000.? Time changes happen often and if your time is changed the preop area will call you the afternoon before. - You and your visitor will be asked to self-screen and do not enter if you have any COVID symptoms. Please call surgeon if you need to reschedule. - A mask is optional within the hospital at this time. Patients may have clear liquids (water, carbonated beverages, clear teas, apple juice) until 3 hours prior to surgery with a maximum of 20 ounces. - No food from midnight until time of surgery and no smoking, or chewing tobacco (or any form of nicotine). No chewing gum, candy or mints. - Infants may have breast milk until 4 hours before surgery, infant formula 6 hours prior to surgery. - Children will be allowed to drink immediately following surgery.? If applicable, please bring a bottle or sippy cup to assist with drinking. Juice, water, soda, and popsicles are readily available.? For infants on formula, please bring formula the day of surgery.? Pacifiers are allowed. Take only the following medications with a SIP of water on the morning of surgery: N/A DO NOT STOP ANY OF YOUR OTHER PRESCRIPTION MEDICATIONS PRIOR TO SURGERY EXCEPT THE FOLLOWING Hold all vitamins and supplements for 3 days per anesthesiologist. Medications to discontinue per physician ALL VITAMINS AND SUPPLIMENTS Date to take last dose 01/05/25 Please no make-up, nail ecuadorean, hairspray, perfume, deodorant, or body powder the day of surgery.? No jewelry (including any body piercings) or valuables the day of surgery, leave them at home.? Please take a shower or bath the night before, or the morning of, surgery with an antibacterial soap.? Wear comfortable, loose fitting clothing.? Children are encouraged to wear pajamas. - Jewelry must be removed prior to entering the operating room.? Rings and piercings that are not removed may be cut off. - The hospital will not accept responsibility for valuables.? - Please leave all valuables, including medications, at home the day of surgery. If you are going home after surgery, a licensed transport truck driver must drive you home.? - NO public transportation without another adult if you receive anesthesia. - We recommend that an adult stay with you for 24 hours following discharge. - We also recommend that you do not drive, make important decision, drink alcoholic beverages, or take any drugs that were not prescribed by your health care provider for at least 24 hours after your discharge time. For Pediatric surgeries, we recommend two adults accompany the child home. Follow any additional instructions given to you from your surgeon. Telephone instructions given to ORIANA BAER and asked if any additional questions and then verbalized understanding. Patient advised to call surgeon office or pre surgery nurse liaison [phone] if any additional questions.
--- NOTE | 2025-01-08 14:21 | P.HP_ITS ---
H&P: HPI History of Present Illness Date/Time: 01/08/25 14:21 Chief Complaint: Incisional hernia Narrative: The patient is a 59-year-old woman who presented to the emergency room on April 06, 2024 with distal colonic obstruction in the sigmoid colon. She was taken to surgery on that day and underwent diverting transverse loop colostomy. Colonoscopy with biopsy suggested this was a benign, diverticular stricture. Patient was taken back to surgery on May 16, 2024. Transverse colostomy was closed and sigmoid colon resection was performed with EEA stapled colorectal anastomosis. Patient was a smoker when she initially presented but has stopped now for several months. Pathology on the sigmoid colon did show diverticulitis with perforation. There was no evidence of malignancy. She recovered from her surgery in May but, 4 months later, she noticed a small bulge in the upper aspect of her incision. Bulge increased in size. She was seen in the office in early November. She was estimated to have a 5 x 5 cm hernia defect at the colostomy site. She is taken to surgery now for robotic laparoscopic repair with mesh. Review of Systems Review of Systems: All systems reviewed & are unremarkable except as noted in HPI and below (HPI) Constitutional: Constitutional: Reports as per HPI Gastrointestinal: Gastrointestinal: Reports as per HPI [facility] [place] Past Medical History Medical History Former smoker Diverticulitis of large intestine with perforation Scoliosis External hemorrhoids Surgical History Surgical History S/P colostomy takedown 05/16/24 Closure transverse colostomy, sigmoidectomy with stapled 33 EEA anastomosis, takedown splenic flexure Dr. Clinton Colostomy in place 04/06/24 Creation diverting transverse colostomy Dr. Clinton History of back surgery [facility] Social History Social History Smoking packs per day: 0.75 Smoking cigarettes per day: 15.0 Years smoked: 45 Smoking pack-years: 33.75 Smoking status: Former smoker Smoking end date: 04/06/24 Additional smoking assessment comments: off and on since she was 15 Alcohol intake: current Drinks per week: 6 Alcohol use details: DRINKS LITTLE IN WINTER/MORE IN SUMMER Substance use: current Substance use type: marijuana Other substance usage details: COUPLE TIMES A DAY Last use: 03/23/24 Lack of Transportation: No Lack of Food: Never True Current Housing: I Have Housing Concerned About Future Housing: No Difficulty Paying Gas/Electric Bills: No Difficulty Paying for Meds: No Currently Unemployed: No Education: High School Diploma/GED Difficulty w/ Childcare or Family Care: No Living arrangements: with family Additional living arrangements comments: HUSB Spiritual care concerns: No Meds Home Medications and Allergies Home Medications ?Medication ?Instructions ?Recorded ?Confirmed ?Type melatonin 12 mg tablet 12 mg PO HS PRN sleep 01/01/25 History black cohosh 540 mg capsule 20 mg PO DAILY 01/01/25 History multivitamin (Daily Multi-Vitamin 1 tablet PO DAILY 01/01/25 History tablet) Allergies Allergy/AdvReac Type Severity Reaction Status Date / Time No Known Allergies Allergy Verified 01/01/25 13:16 Exam Const: General: comfortable, no acute distress, alert and awake HENMT: Head: normocephalic and atraumatic Mouth: Yes Normal oral and palatal mucosa present Eyes: Conjunctivae: conjunctivae normal Pupils: Equal, round and reactive pupils present EOM: EOMs intact bilaterally Neck: Neck: normal visual inspection, no lymphadenopathy and nontender Resp: Effort & Inspection: normal respiratory effort Auscultation: clear to auscultation bilaterally Cardio: Rate: regular rate Rhythm: regular rhythm Heart sounds: no gallops, no murmurs and no rubs GI: Inspection: non-distended, scaphoid, scar (Midline long scar) and visible herniation (Incisional, hypogastric area) GI Palp: Yes Soft to palpation, No Tenderness to palpation present (GI), No Hepatomegaly present, No Splenomegaly present and Yes Hernia present incisional 3-10 cm Auscultation: normal bowel sounds Skin: Lesions: no lesions Rashes: no rashes Neuro: General: no focal motor deficits and CN's II-XI intact bilaterally Cranial nerves: Yes Equal, round and reactive pupils present, Yes Bilaterally intact EOM present, Yes facial symmetry and Yes Midline tongue present Speech: normal speech Motor exam (neuro): 5/5 motor strength present throughout and Motor abnormalities not present Extrem: General: no clubbing, cyanosis or edema and edema Psych: Affect: normal affect Thought process: Normal thought process present Insight: Good insight present (Psych) Assessment and Plan Assessment and plan (1) Incisional hernia: Qualifiers: Obstruction and gangrene presence: without obstruction or gangrene Qualified Code(s): K43.2 - Incisional hernia without obstruction or gangrene Code(s): K43.2 - Incisional hernia without obstruction or gangrene Status: Chronic Assessment and Plan: Reducible but fairly large incisional hernia with 5 cm defect. Plan to proceed with robotic, laparoscopic repair of incisional hernia with mesh. The procedure has been discussed with the patient in detail. The usual length of the surgery, time in the hospital, time for recovery and convalescence has been discussed. All questions were answered. She understands and wishes to proceed. (2) Former smoker: Code(s): Z87.891 - Personal history of nicotine dependence Status: Chronic Assessment and Plan: Stop smoking 9 months ago (3) History of colectomy: Code(s): Z90.49 - Acquired absence of other specified parts of digestive tract Status: Chronic Assessment and Plan: Sigmoidectomy with colostomy closure May 2024 for diverticulitis with perforation and obstruction.
[2025-01-09] VITALS (11 sets, daily range): BP systolic 116–141; BP diastolic 74–87; PULSE 87–120; RESP 13–18; TEMP 36.3–37.2; O2SAT 92–100; BMI 23.3
--- OUTSIDE RECORDS SUMMARY | 2025-01-09 00:47 | XMS_ITS | Clinical Summary ---
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
[2025-01-09] MEDS: LACTATED RINGERS 1,000 ML 30 ML IV CONT ×3 (08:30→14:32)
[2025-01-09] MEDS: KETOROLAC 15 MG/ML VIAL (*BKC) IV PUSH (08:38)
[2025-01-09] MEDS: ACETAMINOPHEN 500 MG TABLET 1000 MG PO (08:38)
--- NOTE | 2025-01-09 09:21 | WPDHPUPDATE1 ---
History and Physical Update Update Date/Time: 01/09/25 09:21 History and Physical has been reviewed, including an updated exam of the patient. There are NO changes in the patient's condition. Risks, benefits, and alternatives have been discussed and questions answered. Patient agrees to proceed with procedure.
--- NOTE | 2025-01-09 09:29 | WPDANESEPPF ---
Anes - Initial Pre Proc Eval Procedure: Operation Date: 01/09/25 10:00 Proposed Procedures p Robotic Repair Incisional Hernia with Mesh - Nic Clinton MD Date/Time: 01/09/25 09:29 Surgeon: Nic Clinton MD Pre Op Diagnosis: Incisional Hernia Patient Data Age: 59 Gender: F Height: 1.65 m Weight: 63.8 kg Last Vital Signs Temp 36.6 C 01/09/25 08:00 Pulse 87 01/09/25 08:00 Resp 14 01/09/25 08:00 BP 131/78 01/09/25 08:00 Pulse Ox 97 01/09/25 08:00 Allergies Allergy/AdvReac Type Severity Reaction Status Date / Time No Known Allergies Allergy Verified 01/09/25 08:15 Home Medications ?Medication ?Instructions ?Recorded ?Confirmed ?Type melatonin 12 mg tablet 12 mg PO HS PRN sleep 05/07/24 01/01/25 History black cohosh 540 mg capsule 20 mg PO DAILY 01/01/25 01/09/25 History multivitamin (Daily Multi-Vitamin 1 tablet PO DAILY 01/01/25 01/09/25 History tablet) Laboratory Tests 01/09/25 08:35 Blood Type A Positive Antibody Screen Pending Patient hx anesthesia problems: none Family hx anesthesia problems: none Results Review: All pre-operative results and documents have been reviewed as part of the pre-operative evaluation. [facility] Past Medical History Medical History Former smoker Diverticulitis of large intestine with perforation Scoliosis External hemorrhoids Surgical History Surgical History S/P colostomy takedown 05/16/24 Closure transverse colostomy, sigmoidectomy with stapled 33 EEA anastomosis, takedown splenic flexure Dr. Clinton Colostomy in place 04/06/24 Creation diverting transverse colostomy Dr. Clinton History of back surgery [facility] Social History Social History Smoking packs per day: 0.75 Smoking cigarettes per day: 15.0 Years smoked: 40 Smoking pack-years: 30.00 Smoking status: Former smoker Additional smoking assessment comments: off and on since she was 15 Alcohol intake: current Drinks per week: 6 Alcohol use details: DRINKS LITTLE IN WINTER/MORE IN SUMMER Substance use: current Substance use type: marijuana Other substance usage details: daily Last use: 03/23/24 Lack of Transportation: No Lack of Food: Never True Current Housing: I Have Housing Concerned About Future Housing: No Difficulty Paying Gas/Electric Bills: No Difficulty Paying for Meds: No Currently Unemployed: No Education: High School Diploma/GED Difficulty w/ Childcare or Family Care: No Living arrangements: with family Additional living arrangements comments: HUSB Spiritual care concerns: No Anes - Eval Final PreProcedure Day of Procedure 01/09/25 09:29 Patient weight: normal Heart: regular rate and rhythm Lungs: decreased breath sounds Airway: Mallampati scale class 1 Neurological: alert and oriented Last oral intake: >/= 8 hours ASA classification: III Emergent: no Anesthetic plan: proceed Anesthesia type and monitoring: general ETT and standard monitoring Results Review: All pre-operative results and documents have been reviewed as part of the pre-operative evaluation. Informed Consent: The patient's anesthetic plan and its attendant risks and benefits were discussed with the patient/family/POA. Questions were solicited and answers provided to the satisfaction of the patient/family/POA.
[2025-01-09] MEDS: ceFAZolin 2 GM in SODIUM CHLORIDE 0.9% IV 50 ML 100 ML IVPB (09:46)
[2025-01-09] MEDS: BUPIVACAINE/EPINEPHRINE 0.5% 30 ML VIAL INFILTRATE (10:48)
--- NOTE | 2025-01-09 14:55 | P.OP_ITS ---
Procedure Note - Detailed Date of Procedure 01/09/25 Pre-op Diagnosis Incisional Hernia with 5 cm defect Post-op Diagnosis Same (Incisional hernia with 10 cm transverse defect and 14 cm longitudinal defect. There were 2 additional midline defects.) Procedure Performed Attempted robotic laparoscopic repair large incisional hernia, open repair incisional hernia with 14 cm defect with mesh, bilateral transversus myofascial flap advancement, 6 cm on the left, 4 cm on the right Surgeon Nic Clinton MD Solid Die Cutter [facility] Anesthesia General Indications Patient presented earlier this year with colonic obstruction in the sigmoid due to diverticular disease. She had a transverse loop colostomy initially. Then in May, she had closure of the colostomy with sigmoidectomy done open. In September she began noticing a bulge in the upper aspect of her midline incision. She was seen in the office and found to have a wide mouth incisional hernia, 5 x 5 cm by palpation. She is taken to surgery at this time for robotic laparoscopic repair with mesh Findings Anterior abdominal wall adhesions were so numerous, it was difficult to gain access to the peritoneal cavity laparoscopically. Although this was eventually accomplished, the hernia appeared to be very large and there were adhesions of bowel to the anterior abdominal wall that were dense. Robotic laparoscopic repair was felt to be unsafe and with the large hernia, likely to result in recurrence. After talking with the patient's friend Dianelys, I proceeded with open incisional hernia repair with posterior component separation as a safer and more effective repair. Description of Procedure Patient was taken to surgery and induced into general anesthesia. The abdomen was prepped and draped. I initially tried to get access to the peritoneal cavity with a left subcostal applied Medical optical trocar. This trocar placement did not succeed in gaining access due to dense adhesions in this area. I then tried another 5 mm applied Medical optical trocar in the epigastric area just to the left of midline and also subcostal. I was able to gain access to the peritoneal cavity from here. Adhesions were noted and were very extensive and dense. The seemed to track widely across the abdominal wall barring adequate access particularly on the patient's left side. I put another 5 mm applied Medical optical trocar on the patient's right mid abdomen. We reviewed and the adhesions from this angle and they still seemed very extensive and dense with bowel adherent to the anterior abdominal wall. The hernia was not able to be reduced and obviously had bowel in the hernia sac. It appeared quite a bit larger than the 5 cm I had estimated by palpation. We then abandoned the laparoscopic attempt. The skin wounds were closed with subcuticular interrupted Monocryl suture. Laparotomy tray for open incisional hernia repair was opened and prepared. I called in informed the patient's good friend Dianelys, who was with her, of the need to proceed with this repair. The previous midline incision scar was excised completely. Cautery was used for hemostasis. I opened the hernia sac in the upper abdomen. There were dense adhesions of bowel and omentum in the upper abdomen. The transverse colon was in the hernia sac as well. I carefully took down the adhesions in the area of the hernia. I gained access to the peritoneal cavity and then began dividing some fascial bridges associated with the wide-mouth incisional hernia. I then divided midline fascia towards the pubis. I ran into a couple months smaller defects around the umbilicus and below the umbilicus. The with the the hernia defect was 10 cm years, mostly on patient's left side. The overall length of the defects was 14 cm. I opened the abdomen on below the umbilicus the full extent of the wound. I then started on the patient's left side and began taking down omental and bowel adhesions. These were very extensive and went far lateral on the patient's left side. I took these down taking care to not injure the peritoneum or transversalis fascia. Once I had done this adequately on the patient's left, I then went to the patient's left side and did the same procedure of adhesiolysis on her right side. These adhesions were likewise very extensive and extended far lateral. They were mostly bowel and omentum. Once the anterior abdominal wall adhesions had been taken down to an adequate degree, I placed a blue towel over the abdominal contents to quarantine it. I then started on the patient's left side and, staying as far medial as possible, I divided the posterior rectus sheath down to the rectus muscle. This incision was enlarged cephalad and caudad. I then place traction on the posterior rectus sheath and slowly dissected off the muscle. Cautery was used for hemostasis. Once I had accomplished this to the lateral aspect of the rectus muscle, I extended the dissection cephalad and caudad be on the length of the open wound. I divided the posterior rectus sheath cephalad to the area of the xiphoid. I then exposed the transversus abdominis muscle in the left upper quadrant. Dissecting the muscle over a right angle clamp, the muscle was carefully divided preserving the posterior transversus sheath. This was continued cephalad and then we proceeded towards the pubis staying just medial to the lateral border the rectus muscle to avoid injury to the neurovascular in her vacation. The peritoneum was very tenuous in the mid abdomen and some holes were made. Dissection in areas that had more integrity was carried out lateral to the retroperitoneal fat. Then using a combination of lateral dissection coming anterior as well as dissecting the peritoneum in the retropubic space and then coming up from the lower abdomen to divide and dissect the transversus, I was eventually able to complete the dissection proceeding far laterally as was planned. The holes in the peritoneum were closed with running and interrupted 3-0 Vicryl suture. The dissection in the retropubic space was carried across the midline. Cephalad, the dissection was carried up to and then under and beyond the xiphoid process on the patient's left side. Having completed the left side, I then went to the patient's left side and began the dissection on the patient's right. Again the posterior rectus sheath was dissected off the rectus muscle the length of the wound. Dissection was continued cephalad and caudad to communicate with the previously dissected planes. I dissected cephalad at beyond the xiphoid process. I then exposed the transversus in the right upper quadrant and divided it carefully over a clamp just as had been done on the left side. Again, I encountered continuous integrity of the peritoneum. Several holes were made despite my best efforts to avoid them. Alternative dissection planes were used and eventually I was able to complete the transversus abdominis release and dissect far lateral near the area of the operating table. Cautery was used for hemostasis here as well. The peritoneal holes were closed with interrupted and running 3-0 Vicryl suture. I then reinspected the entire dissection. Any additional bleeding encountered was stopped using cautery. Once it seemed we had an intact transversus abdominis release, suitable for mesh placement, I then used 0 Vicryl suture. I closed the posterior rectus tissue plane in bidirectional fashion with 0 Vicryl suture. Flap advancement was about 6-7 cm on the left and 3 or 4 cm on the right. I then brought in extra-large polypropylene mesh. The initial piece was placed in chepe fashion so that the apex of the corner of the mesh would cover well up to and beyond the xiphoid process. The lateral aspect of the mesh to easily fit in to the lateral dissection planes. Unfortunately the mesh did not reach far enough towards the pubis to cover that adequately. I brought in the 2nd piece of extra-large polypropylene mesh. This was position that the mesh covered the pubis and the retropubic space as well as the lower portion of the transversus abdominis flap. Both pieces of mesh lay very nicely in position. I then placed a 19 [place] Scotty drain in the left lower quadrant. The drain was position top of the mesh, in the a retro rectus position. The drain was sutured to the skin. I then closed the anterior rectus fascia with bidirectional running 1. PDS suture. Drain was placed to bulb suction. Several subcuticular 3-0 Vicryl sutures were used to suture the umbilical skin to the skin on the opposite side of the incision. I also closed much of the subcutaneous with interrupted 3-0 Vicryl suture. The rest of the wound was closed with wide consuelo. The wound was dressed with Xeroform gauze, fluffs, ABDs and Medipore tape. The drain site was covered with gauze as well. The patient was then awakened and extubated. She was taken to recovery in good condition. Sponge and needle counts were correct x2. Implants Two pieces of extra-large polypropylene mesh Estimated Blood Loss -150 Drains Yes (19 [place] Scotty drain, retro rectus space, Steele catheter) Packing No Pathology None sent Complications None Condition Stable Disposition PACU [facility] Billing Surgery - Charge Forward: Surgery Billing (Attempted robotic laparoscopic repair large incisional hernia, open repair incisional hernia with 14 cm defect with mesh, bilateral transversus myofascial flap advancement, 6 cm on the left, 4 cm on the right)
--- NOTE | 2025-01-09 15:56 | ADMGEN ---
This patient, Sintia Lipscomb, was admitted to [facility] Surg Room 311-01. Patient/family oriented to hospital policies and general routines including ID bracelet, bed and alarms, visiting hours, pain management, procedures, bathroom and other care routines, personal items, smoking policy, room service/diet, and visiting hours. Information on how to activate the Rapid Response Team has been discussed. Patient/Family are encouraged to report perceived risks to care and to ask questions if they do not understand what they are told or what they should do.
[2025-01-09] MEDS: ONDANSETRON INJ 4 MG/2 ML VIAL IV PUSH (17:14)
[2025-01-09] MEDS: IBUPROFEN IV 800 MG/200 ML 800 MG/200 ML BAG 400 MG IVPB ×2 (17:15→21:02)
[2025-01-09] MEDS: LACTATED RINGERS 1,000 ML 100 ML IV CONT (17:15)
[2025-01-09] MEDS: SENNA/DOCUSATE SODIUM TABLET 2 TAB PO (21:03)
[2025-01-10 01:25] VITALS: BP 126/81; PULSE 105; RESP 18; TEMP 36.8; O2SAT 99
[2025-01-10] MEDS: IBUPROFEN IV 800 MG/200 ML 800 MG/200 ML BAG 400 MG IVPB ×4 (02:44→20:42)
[2025-01-10] MEDS: LACTATED RINGERS 1,000 ML 100 ML IV CONT (03:34)
[2025-01-10 05:01] VITALS: BP 140/81; PULSE 105; RESP 18; TEMP 36.4; O2SAT 98
[2025-01-10 06:24] LABS: Hematocrit 34.0 % (37.0-47.0); Hemoglobin 11.2 g/dL (12.0-15.0); Mean Corpuscular HGB Conc 32.9 g/dl (32-36); Mean Corpuscular Hemoglobin 32.1 pg (26-34); Mean Corpuscular Volume 97.4 fl (80-100); Platelet Count Result 321 k/mm3 (150-375); Red Blood Count 3.49 M/mm3 (4.2-5.4); White Blood Count 15.8 K/mm3 (4.5-10.0)
[2025-01-10 06:36] LABS: Anion Gap 3 mmol/L (4-12); Blood Urea Nitrogen 15 mg/dL (7-17); Calcium 8.1 mg/dL (8.4-10.2); Carbon Dioxide 29 mmol/L (22-30); Chloride 105 mmol/L (98-107); Estimated CRCL calculation 57 ml/min; Estimated Glomerular Filt Rate > 60; Glucose 120 mg/dL (65-110); Sodium 137 mmol/L (137-145)
[2025-01-10 06:45] LABS: Potassium 3.7 mmol/L (3.4-5.0)
[2025-01-10 09:25] VITALS: BP 125/79; PULSE 103; RESP 20; TEMP 37; O2SAT 96
[2025-01-10] MEDS: ENOXAPARIN 40 MG/0.4 ML SYRINGE SUB-Q (09:54)
--- NOTE | 2025-01-10 11:20 | P.PNGS_ITS ---
Progress Note: A&P Assessment and Plan (1) Incisional hernia: Qualifiers: Obstruction and gangrene presence: without obstruction or gangrene Qualified Code(s): K43.2 - Incisional hernia without obstruction or gangrene Code(s): K43.2 - Incisional hernia without obstruction or gangrene Status: Chronic Assessment and Plan: * Postop day 1 and doing well. Will start increasing her activity and get her up to chair/ambulate in the room. Continue Steele catheter for today. Will advance to a soft diet and stop IV fluids. Repeat labs and exam again tomorrow. Plan I have discussed the patient's case, recommendations, and treatment plan with Dr. Clinton. Subjective Subjective Date/Time Seen: 01/10/25 11:20 Post Op day: 1 (Attempted robotic laparoscopic repair large incisional hernia, open repair incisional hernia with 14 cm defect with mesh, bilateral transversus myofascial flap advancement, 6 cm on the left, 4 cm on the right) Patient reports: no flatus and no bowel movement Interval history: The patient reports having incisional pain and soreness, but currently controlled. She has been getting IV Ibuprofen Q6H with relief. Steele in place. She is up to the chair. She is tolerating clear liquids well. Mild nausea, but no vomiting. Exam Const: General: comfortable and no acute distress Resp: Effort & Inspection: normal respiratory effort Auscultation: clear to auscultation bilaterally Cardio: Rate: regular rate Rhythm: regular rhythm GI: Inspection: non-distended and incision (dressing dry and intact) GI Palp: Yes Soft to palpation and Yes Tenderness to palpation present (GI) Auscultation: Hypoactive bowel sounds present Other: VERONICA drain with serosanguineous drainage Urinary Catheter: Urinary Catheter: patent and draining and urine clear Extrem: General: no calf tenderness and no edema Objective Data Vital Signs Vital Signs: Vital Signs - 24 hr 01/09/25 14:32 01/09/25 14:45 01/09/25 15:00 Temperature 99.0 F Pulse Rate 120 H 107 H 102 H Respiratory Rate 13 13 13 Blood Pressure 124/83 127/82 116/87 Pulse Oximetry 98 98 92 Oxygen Delivery Simple Face Mask Simple Face Mask Simple Face Mask Oxygen Flow Rate 8 8 10 01/09/25 15:12 01/09/25 15:15 01/09/25 15:21 Temperature Pulse Rate 102 H Respiratory Rate 13 Blood Pressure 123/81 Pulse Oximetry 98 98 99 Oxygen Delivery Nasal Cannula Nasal Cannula Nasal Cannula Oxygen Flow Rate 4 3 2 01/09/25 15:30 01/09/25 16:05 01/09/25 17:25 Temperature 97.5 F L Pulse Rate 101 H 90 Respiratory Rate 13 18 Blood Pressure 119/83 141/74 H Pulse Oximetry 98 98 100 Oxygen Delivery Nasal Cannula Nasal Cannula Oxygen Flow Rate 2 2 01/09/25 20:40 01/10/25 01:25 01/10/25 05:01 Temperature 97.3 F L 98.2 F 97.6 F Pulse Rate 92 105 H 105 H Respiratory Rate 16 18 18 Blood Pressure 124/83 126/81 140/81 Pulse Oximetry 98 99 98 Oxygen Delivery Oxygen Flow Rate 01/10/25 09:25 01/10/25 10:00 Temperature 98.6 F Pulse Rate 103 H Respiratory Rate 20 Blood Pressure 125/79 Pulse Oximetry 96 Oxygen Delivery Room Air Oxygen Flow Rate Intake/Output Intake/Output: Intake & Output 01/07/25 01/08/25 01/09/25 01/10/25 23:59 23:59 23:59 23:59 Intake Total 1000 2090 Output Total 180 1750 Balance 820 340 Meds/Results Medications: Active Medications Generic Name Dose Route Start Last Admin Trade Name Freq PRN Reason Stop Dose Admin Acetaminophen 500 mg 01/09/25 15:40 Acetaminophen 500 Mg Tablet PO Q6H PRN Pain Rated 1-3 Hydrocodone Bitart/Acetaminophen 1 tab 01/09/25 15:40 Hydrocodone/Acetaminophen (*Crx) 5-325 Mg Tablet PO Q4H PRN Pain Rated 4-6 Enoxaparin Sodium 40 mg 01/10/25 09:00 01/10/25 09:54 Enoxaparin 40 Mg/0.4 Ml Syringe SUB-Q 40 mg DAILY DAYNA Administration Lactated Ringer's 1,000 mls @ 100 mls/hr 01/09/25 15:40 01/10/25 03:34 Lr - Lactated Ringers Iv IV CONT 100 mls/hr .Q10H DAYNA Administration Ibuprofen 800 mg in 200 mls @ 400 mls/hr 01/09/25 15:40 01/10/25 09:54 Caldolor 800 Mg/200 Ml IVPB 400 mls/hr Q6H DAYNA Administration Melatonin 12 mg 01/09/25 15:51 Melatonin 3 Mg Tablet PO HS PRN sleep Morphine Sulfate 4 mg 01/09/25 15:40 Morphine Sulfate (*Crx) 4 Mg/Ml Inj IV PUSH Q2H PRN Breakthrough Pain Rated 7-10 or NPO Morphine Sulfate 2 mg 01/09/25 15:40 Morphine Sulfate (*Crx) 4 Mg/Ml Inj IV PUSH Q2H PRN Breakthrough Pain Rated 4-6 or NPO Naloxone HCl 0.1 mg 01/09/25 15:40 Naloxone Hcl 0.4 Mg/Ml Vial IV PUSH Q2M PRN Opiate Reversal Ondansetron HCl 4 mg 01/09/25 15:40 01/09/25 17:14 Ondansetron Inj 4 Mg/2 Ml Vial IV PUSH 4 mg Q4H PRN Administration Nausea And Vomiting Oxycodone/Acetaminophen 1 tab 01/09/25 15:40 Oxycodone/Acetaminophen (*Crx) 10-325 Mg Tablet PO Q6H PRN Pain Rated 7-10 Polyethylene Glycol 17 gm 01/10/25 09:00 01/10/25 09:54 Polyethylene Glycol 3350 17 Gm Powd.Pack PO 17 gm QAM DAYNA Administration Senna/Docusate Sodium 2 tab 01/09/25 21:00 01/09/25 21:03 Senna/Docusate Sodium Tablet PO 2 tab HS DAYNA Administration Labs Labs: Laboratory Results - last 24 hr 01/10/25 05:41 WBC 15.8 H RBC 3.49 L Hgb 11.2 L Hct 34.0 L MCV 97.4 MCH 32.1 MCHC 32.9 RDW 12.8 Plt Count 321 MPV 10.1 Sodium 137 Potassium 3.7 Chloride 105 Carbon Dioxide 29 Anion Gap 3 L BUN 15 Creatinine 0.83 Estim Creat Clear Calc 57 Estimated GFR > 60 Glucose 120 H Calcium 8.1 L
--- NOTE | 2025-01-10 12:48 | WPDANESPN ---
Anes - Prog Note Post-Op Date/Time: 01/10/25 12:48 Cardiovascular status: normal Respiratory status: normal Airway patency: baseline Mental status: baseline Post-Op hydration status: normal Vital Signs: Last Vital Signs Temp 37.0 C 01/10/25 09:25 Pulse 103 H 01/10/25 09:25 Resp 20 01/10/25 09:25 BP 125/79 01/10/25 09:25 Pulse Ox 96 01/10/25 09:25 O2 Del Method Room Air 01/10/25 10:00 O2 Flow Rate 2 01/09/25 16:05 Pain Score (VAS): 3 I/O: Intake & Output 01/09/25 01/10/25 01/10/25 23:59 07:59 15:59 Intake Total 950 1350 740 Output Total 80 650 1100 Balance 870 700 -360 Laboratory Tests 01/10/25 05:41 01/10/25 05:41 01/10/25 05:41 WBC 15.8 H RBC 3.49 L Hgb 11.2 L Hct 34.0 L MCV 97.4 MCH 32.1 MCHC 32.9 RDW 12.8 Plt Count 321 MPV 10.1 Sodium 137 Potassium 3.7 Chloride 105 Carbon Dioxide 29 Anion Gap 3 L BUN 15 Creatinine 0.83 Estim Creat Clear Calc 57 Estimated GFR > 60 Glucose 120 H Calcium 8.1 L Post-procedural complaints: none Patient Feedback: Patient satisfied with anesthetic care.
[2025-01-10 13:25] VITALS: BP 124/74; PULSE 122; RESP 22; TEMP 36.7; O2SAT 95
[2025-01-10 17:25] VITALS: BP 117/73; PULSE 112; RESP 20; TEMP 36.8; O2SAT 93
[2025-01-10] MEDS: SENNA/DOCUSATE SODIUM TABLET 2 TAB PO (20:26)
[2025-01-10 20:46] VITALS: BP 118/73; PULSE 102; RESP 18; TEMP 36.9; O2SAT 92
[2025-01-11] MEDS: IBUPROFEN IV 800 MG/200 ML 800 MG/200 ML BAG 400 MG IVPB ×2 (03:18→20:52)
[2025-01-11 04:50] VITALS: BP 138/85; PULSE 112; RESP 18; TEMP 36.5; O2SAT 93
[2025-01-11 07:04] LABS: Hematocrit 28.3 % (37.0-47.0); Hemoglobin 9.3 g/dL (12.0-15.0); Mean Corpuscular HGB Conc 32.9 g/dl (32-36); Mean Corpuscular Hemoglobin 32.4 pg (26-34); Mean Corpuscular Volume 98.6 fl (80-100); Platelet Count Result 263 k/mm3 (150-375); Red Blood Count 2.87 M/mm3 (4.2-5.4); White Blood Count 12.4 K/mm3 (4.5-10.0)
[2025-01-11 08:05] LABS: Anion Gap 0 mmol/L (4-12); Blood Urea Nitrogen 9 mg/dL (7-17); Calcium 8.0 mg/dL (8.4-10.2); Carbon Dioxide 31 mmol/L (22-30); Chloride 105 mmol/L (98-107); Estimated CRCL calculation 68 ml/min; Estimated Glomerular Filt Rate > 60; Glucose 105 mg/dL (65-110); Potassium 3.2 mmol/L (3.4-5.0); Sodium 136 mmol/L (137-145)
[2025-01-11] MEDS: IBUPROFEN IV 800 MG/200 ML 800 MG/200 ML BAG 200 MG IVPB ×2 (09:36→15:55)
[2025-01-11] MEDS: ENOXAPARIN 40 MG/0.4 ML SYRINGE SUB-Q (09:37)
[2025-01-11 10:24] VITALS: O2SAT 96
--- NOTE | 2025-01-11 11:38 | PM.PNGS ---
Progress Note: A&P Assessment and Plan (1) Incisional hernia: Qualifiers: Obstruction and gangrene presence: without obstruction or gangrene Qualified Code(s): K43.2 - Incisional hernia without obstruction or gangrene Code(s): K43.2 - Incisional hernia without obstruction or gangrene Status: Chronic Assessment and Plan: Making good progress postop day 2. Continue to get out of bed and ambulate. Labs look good. Will discontinue Steele catheter. Starting on soft diet. Wound healing well. (2) History of colectomy: Code(s): Z90.49 - Acquired absence of other specified parts of digestive tract Status: Chronic Assessment and Plan: Sigmoidectomy for diverticulitis with colon obstruction (3) History of colostomy reversal: Code(s): Z98.890 - Other specified postprocedural states Status: Chronic Assessment and Plan: Closed at the same procedure as sigmoidectomy. Subjective Subjective Date/Time Seen: 01/11/25 11:38 Post Op day: 2 Patient reports: no new complaints, pain is less, flatus, no bowel movement and afebrile Exam Const: General: comfortable and no acute distress Orientation/consciousness: patient oriented x3 GI: Inspection: incision (Dry and healing well) and other (Old blood in VERONICA drain) GI Palp: Yes Soft to palpation, Yes Tenderness to palpation present (GI) and No Guarding due to palpation present (GI) Auscultation: normal bowel sounds Neuro: General: patient oriented x3 and no focal motor deficits Extrem: General: no calf tenderness and no edema Psych: Affect: normal affect Insight: Good insight present (Psych) Judgement: Good judgement present (Psych) Objective Data Vital Signs Vital Signs: Vital Signs - 24 hr 01/10/25 13:25 01/10/25 17:25 01/10/25 20:00 Temperature 36.7 C 36.8 C Pulse Rate 122 H 112 H Respiratory Rate 22 H 20 Blood Pressure 124/74 117/73 Pulse Oximetry 95 93 Oxygen Delivery Room Air 01/10/25 20:46 01/11/25 04:50 01/11/25 10:24 Temperature 36.9 C 36.5 C Pulse Rate 102 H 112 H Respiratory Rate 18 18 Blood Pressure 118/73 138/85 Pulse Oximetry 92 93 96 Oxygen Delivery Room Air Intake/Output Intake/Output: Intake & Output 12/02/25 12/03/25 12/04/25 12/05/25 23:59 23:59 23:59 23:59 Intake Total 1000 3410 1140 Output Total 180 1840 870 Balance 820 1570 270 Meds/Results Medications: Active Medications Generic Name Dose Route Start Last Admin Trade Name Freq PRN Reason Stop Dose Admin Acetaminophen 500 mg 01/09/25 15:40 Acetaminophen 500 Mg Tablet PO Q6H PRN Pain Rated 1-3 Hydrocodone Bitart/Acetaminophen 1 tab 01/09/25 15:40 Hydrocodone/Acetaminophen (*Crx) 5-325 Mg Tablet PO Q4H PRN Pain Rated 4-6 Enoxaparin Sodium 40 mg 01/10/25 09:00 01/11/25 09:37 Enoxaparin 40 Mg/0.4 Ml Syringe SUB-Q 40 mg DAILY DAYNA Administration Ibuprofen 800 mg in 200 mls @ 400 mls/hr 01/09/25 15:40 01/11/25 09:36 Caldolor 800 Mg/200 Ml IVPB 200 mls/hr Q6H DAYNA Administration Melatonin 12 mg 01/09/25 15:51 Melatonin 3 Mg Tablet PO HS PRN sleep Morphine Sulfate 4 mg 01/09/25 15:40 Morphine Sulfate (*Crx) 4 Mg/Ml Inj IV PUSH Q2H PRN Breakthrough Pain Rated 7-10 or NPO Morphine Sulfate 2 mg 01/09/25 15:40 Morphine Sulfate (*Crx) 4 Mg/Ml Inj IV PUSH Q2H PRN Breakthrough Pain Rated 4-6 or NPO Naloxone HCl 0.1 mg 01/09/25 15:40 Naloxone Hcl 0.4 Mg/Ml Vial IV PUSH Q2M PRN Opiate Reversal Ondansetron HCl 4 mg 01/09/25 15:40 01/09/25 17:14 Ondansetron Inj 4 Mg/2 Ml Vial IV PUSH 4 mg Q4H PRN Administration Nausea And Vomiting Oxycodone/Acetaminophen 1 tab 01/09/25 15:40 Oxycodone/Acetaminophen (*Crx) 10-325 Mg Tablet PO Q6H PRN Pain Rated 7-10 Polyethylene Glycol 17 gm 01/10/25 09:00 01/11/25 09:36 Polyethylene Glycol 3350 17 Gm Powd.Pack PO 17 gm QAM DAYNA Administration Senna/Docusate Sodium 2 tab 01/09/25 21:00 01/10/25 20:26 Senna/Docusate Sodium Tablet PO 2 tab HS DAYNA Administration Labs Labs: Laboratory Results - last 24 hr 01/11/25 06:27 WBC 12.4 H RBC 2.87 L Hgb 9.3 L Hct 28.3 L MCV 98.6 MCH 32.4 MCHC 32.9 RDW 12.5 Plt Count 263 MPV 10.0 Sodium 136 L Potassium 3.2 L Chloride 105 Carbon Dioxide 31 H Anion Gap 0 L BUN 9 D Creatinine 0.68 L Estim Creat Clear Calc 68 Estimated GFR > 60 Glucose 105 Calcium 8.0 L
[2025-01-11 14:00] VITALS: BP 126/78; PULSE 99; RESP 18; TEMP 37.4; O2SAT 94
[2025-01-11] MEDS: SENNA/DOCUSATE SODIUM TABLET 2 TAB PO (20:36)
[2025-01-12] VITALS (10 sets, daily range): BP systolic 112–129; BP diastolic 59–80; PULSE 86–103; RESP 16–20; TEMP 36.1–36.3; O2SAT 94–95
[2025-01-12] MEDS: IBUPROFEN IV 800 MG/200 ML 800 MG/200 ML BAG 400 MG IVPB ×2 (02:49→22:04)
[2025-01-12 06:01] LABS: Hematocrit 28.3 % (37.0-47.0); Hemoglobin 9.3 g/dL (12.0-15.0); Mean Corpuscular HGB Conc 32.9 g/dl (32-36); Mean Corpuscular Hemoglobin 31.5 pg (26-34); Mean Corpuscular Volume 95.9 fl (80-100); Platelet Count Result 289 k/mm3 (150-375); Red Blood Count 2.95 M/mm3 (4.2-5.4); White Blood Count 11.1 K/mm3 (4.5-10.0)
[2025-01-12 06:28] LABS: Anion Gap 3 mmol/L (4-12); Blood Urea Nitrogen 9 mg/dL (7-17); Calcium 7.9 mg/dL (8.4-10.2); Carbon Dioxide 29 mmol/L (22-30); Chloride 104 mmol/L (98-107); Estimated CRCL calculation 66 ml/min; Estimated Glomerular Filt Rate > 60; Glucose 100 mg/dL (65-110); Potassium 2.8 mmol/L (3.4-5.0); Sodium 136 mmol/L (137-145)
[2025-01-12] MEDS: POTASSIUM CHLORIDE INJ 40 MEQ in SODIUM CHLORIDE 0.9% IV 500 ML 130 MEQ IVPB (07:06)
[2025-01-12] MEDS: POTASSIUM CHLORIDE 20 MEQ ER TABLET 40 MEQ PO (07:12)
[2025-01-12] MEDS: ENOXAPARIN 40 MG/0.4 ML SYRINGE SUB-Q (08:12)
[2025-01-12] MEDS: IBUPROFEN IV 800 MG/200 ML 800 MG/200 ML BAG 200 MG IVPB ×2 (09:37→15:28)
[2025-01-12 12:35] LABS: Potassium 4.1 mmol/L (3.4-5.0)
[2025-01-12] MEDS: HYDROcodone/acetaminophen (*CRX) 5-325 MG TABLET 1 TAB PO (13:09)
[2025-01-12] MEDS: MORPHINE SULFATE (*CRX) 4 MG/ML INJ IV PUSH (14:01)
--- NOTE | 2025-01-12 20:38 | PM.PNGS ---
Progress Note: A&P Assessment and Plan (1) Incisional hernia: Qualifiers: Obstruction and gangrene presence: without obstruction or gangrene Qualified Code(s): K43.2 - Incisional hernia without obstruction or gangrene Code(s): K43.2 - Incisional hernia without obstruction or gangrene Status: Chronic Assessment and Plan: Etiology of pain earlier today not clear probably postsurgical as it is completely gone now. Patient eating well but no bowel movement as yet. She has been up walking. Labs look good although her potassium was very low this morning, it has been replaced. Making good progress. (2) History of colectomy: Code(s): Z90.49 - Acquired absence of other specified parts of digestive tract Status: Chronic Assessment and Plan: Sigmoidectomy for diverticulitis with colon obstruction (3) History of colostomy reversal: Code(s): Z98.890 - Other specified postprocedural states Status: Chronic Assessment and Plan: Closed at the same procedure as sigmoidectomy. Subjective Subjective Date/Time Seen: 01/12/25 20:38 Post Op day: 3 Patient reports: no new complaints, still having pain (Had severe right upper quadrant and right mid abdominal pain earlier today. Had morphine and then ibuprofen. Completely gone now.), tolerating liquids well, voiding w/o difficulty, flatus, no bowel movement and afebrile Exam Const: General: comfortable, alert and awake Nutritional Appearance: thin GI: Inspection: non-distended and incision (Dressing dry and intact, serosanguineous fluid per VERONICA) GI Palp: Yes Soft to palpation and Yes Tenderness to palpation present (GI) (Mild) Auscultation: normal bowel sounds Objective Data Vital Signs Vital Signs: Vital Signs - 24 hr 01/12/25 00:00 01/12/25 04:17 01/12/25 08:04 Temperature 36.3 C L 36.2 C L Pulse Rate 99 90 103 H Respiratory Rate 16 16 Blood Pressure 114/59 L 112/66 Pulse Oximetry 94 95 Oxygen Delivery 01/12/25 08:12 01/12/25 12:02 01/12/25 16:00 Temperature 36.1 C L Pulse Rate 94 86 Respiratory Rate 16 18 Blood Pressure 129/76 Pulse Oximetry 95 95 Oxygen Delivery Room Air 01/12/25 16:04 Temperature Pulse Rate 101 H Respiratory Rate Blood Pressure Pulse Oximetry Oxygen Delivery Intake/Output Intake/Output: Intake & Output 01/09/25 01/10/25 01/11/25 01/12/25 23:59 23:59 23:59 23:59 Intake Total 1000 3410 2220 3228 Output Total 180 1840 1920 95 Balance 820 1098 244 4957 Meds/Results Medications: Active Medications Generic Name Dose Route Start Last Admin Trade Name Freq PRN Reason Stop Dose Admin Acetaminophen 500 mg 01/09/25 15:40 Acetaminophen 500 Mg Tablet PO Q6H PRN Pain Rated 1-3 Hydrocodone Bitart/Acetaminophen 1 tab 01/09/25 15:40 01/12/25 13:09 Hydrocodone/Acetaminophen (*Crx) 5-325 Mg Tablet PO 1 tab Q4H PRN Administration Pain Rated 4-6 Enoxaparin Sodium 40 mg 01/10/25 09:00 01/12/25 08:12 Enoxaparin 40 Mg/0.4 Ml Syringe SUB-Q 40 mg DAILY DAYNA Administration Ibuprofen 800 mg in 200 mls @ 400 mls/hr 01/09/25 15:40 01/12/25 16:00 Caldolor 800 Mg/200 Ml IVPB Infused Q6H DAYNA Infusion Melatonin 12 mg 01/09/25 15:51 Melatonin 3 Mg Tablet PO HS PRN sleep Morphine Sulfate 4 mg 01/09/25 15:40 01/12/25 14:01 Morphine Sulfate (*Crx) 4 Mg/Ml Inj IV PUSH 4 mg Q2H PRN Administration Breakthrough Pain Rated 7-10 or NPO Morphine Sulfate 2 mg 01/09/25 15:40 Morphine Sulfate (*Crx) 4 Mg/Ml Inj IV PUSH Q2H PRN Breakthrough Pain Rated 4-6 or NPO Naloxone HCl 0.1 mg 01/09/25 15:40 Naloxone Hcl 0.4 Mg/Ml Vial IV PUSH Q2M PRN Opiate Reversal Ondansetron HCl 4 mg 01/09/25 15:40 01/09/25 17:14 Ondansetron Inj 4 Mg/2 Ml Vial IV PUSH 4 mg Q4H PRN Administration Nausea And Vomiting Oxycodone/Acetaminophen 1 tab 01/09/25 15:40 Oxycodone/Acetaminophen (*Crx) 10-325 Mg Tablet PO Q6H PRN Pain Rated 7-10 Polyethylene Glycol 17 gm 01/10/25 09:00 01/12/25 08:13 Polyethylene Glycol 3350 17 Gm Powd.Pack PO Not Given QAM [facility] [place] Senna/Docusate Sodium 2 tab 01/09/25 21:00 01/11/25 20:36 Senna/Docusate Sodium Tablet PO 2 tab HS [facility] Administration Labs Labs: Laboratory Results - last 24 hr 01/12/25 01/12/25 05:28 12:22 WBC 11.1 H RBC 2.95 L Hgb 9.3 L Hct 28.3 L MCV 95.9 MCH 31.5 MCHC 32.9 RDW 12.4 Plt Count 289 MPV 9.9 Sodium 136 L Potassium 2.8 L* 4.1 Chloride 104 Carbon Dioxide 29 Anion Gap 3 L BUN 9 Creatinine 0.70 Estim Creat Clear Calc 66 Estimated GFR > 60 Glucose 100 Calcium 7.9 L
[2025-01-12] MEDS: SENNA/DOCUSATE SODIUM TABLET 2 TAB PO (22:03)
[2025-01-13] VITALS (7 sets, daily range): BP systolic 131–144; BP diastolic 71–81; PULSE 83–103; RESP 14–19; TEMP 36.1–37; O2SAT 92–97
[2025-01-13] MEDS: IBUPROFEN IV 800 MG/200 ML 800 MG/200 ML BAG 400 MG IVPB ×4 (04:10→21:43)
[2025-01-13 05:57] LABS: Hematocrit 28.5 % (37.0-47.0); Hemoglobin 9.3 g/dL (12.0-15.0); Mean Corpuscular HGB Conc 32.6 g/dl (32-36); Mean Corpuscular Hemoglobin 31.8 pg (26-34); Mean Corpuscular Volume 97.6 fl (80-100); Platelet Count Result 336 k/mm3 (150-375); Red Blood Count 2.92 M/mm3 (4.2-5.4); White Blood Count 8.5 K/mm3 (4.5-10.0)
[2025-01-13 06:31] LABS: Anion Gap 5 mmol/L (4-12); Blood Urea Nitrogen 8 mg/dL (7-17); Calcium 8.1 mg/dL (8.4-10.2); Carbon Dioxide 29 mmol/L (22-30); Chloride 102 mmol/L (98-107); Estimated CRCL calculation 65 ml/min; Estimated Glomerular Filt Rate > 60; Glucose 106 mg/dL (65-110); Potassium 3.5 mmol/L (3.4-5.0); Sodium 136 mmol/L (137-145)
[2025-01-13] MEDS: ENOXAPARIN 40 MG/0.4 ML SYRINGE SUB-Q (08:06)
--- NOTE | 2025-01-13 14:49 | PM.PNGS ---
Progress Note: A&P Assessment and Plan (1) Incisional hernia: Qualifiers: Obstruction and gangrene presence: without obstruction or gangrene Qualified Code(s): K43.2 - Incisional hernia without obstruction or gangrene Code(s): K43.2 - Incisional hernia without obstruction or gangrene Status: Chronic Assessment and Plan: no further episodes of severe right-sided abdominal pain. Repair is intact and wound healing well. I will discontinue her VERONICA drain. Advanced to regular diet. Hopefully, home tomorrow. (2) History of colectomy: Code(s): Z90.49 - Acquired absence of other specified parts of digestive tract Status: Chronic Assessment and Plan: Sigmoidectomy for diverticulitis with colon obstruction (3) History of colostomy reversal: Code(s): Z98.890 - Other specified postprocedural states Status: Chronic Assessment and Plan: Closed at the same procedure as sigmoidectomy. Subjective Subjective Date/Time Seen: 01/13/25 14:49 Patient reports: no new complaints, feels better, tolerating a regular diet, voiding w/o difficulty, bowel movement and afebrile Exam Const: General: comfortable GI: Inspection: non-distended, incision ( Healing well), scaphoid and other ( serosanguineous VERONICA output) GI Palp: Yes Soft to palpation and Yes Tenderness to palpation present (GI) ( minimal, appropriate tenderness) Auscultation: normal bowel sounds Objective Data Vital Signs Vital Signs: Vital Signs - 24 hr 01/12/25 16:00 01/12/25 16:04 01/12/25 20:01 Temperature 36.1 C L Pulse Rate 86 101 H 94 Respiratory Rate 18 Blood Pressure 129/76 Pulse Oximetry 95 Oxygen Delivery 01/12/25 20:10 01/12/25 22:15 01/13/25 00:05 Temperature 36.2 C L Pulse Rate 88 83 Respiratory Rate 20 Blood Pressure 126/80 Pulse Oximetry 94 94 Oxygen Delivery Room Air 01/13/25 04:01 01/13/25 06:46 01/13/25 08:00 Temperature 36.3 C L 36.1 C L Pulse Rate 96 88 90 Respiratory Rate 14 17 Blood Pressure 131/81 131/74 Pulse Oximetry 94 97 Oxygen Delivery 01/13/25 08:00 01/13/25 08:30 01/13/25 12:00 Temperature Pulse Rate 103 H 99 Respiratory Rate Blood Pressure Pulse Oximetry Oxygen Delivery Room Air Intake/Output Intake/Output: Intake & Output 01/10/25 01/11/25 01/12/25 01/13/25 23:59 23:59 23:59 23:59 Intake Total 3410 2220 4228 930 Output Total 1840 1920 95 100 Balance 7521 705 1205 830 Meds/Results Medications: Active Medications Generic Name Dose Route Start Last Admin Trade Name Freq PRN Reason Stop Dose Admin Acetaminophen 500 mg 01/09/25 15:40 Acetaminophen 500 Mg Tablet PO Q6H PRN Pain Rated 1-3 Hydrocodone Bitart/Acetaminophen 1 tab 01/09/25 15:40 01/12/25 13:09 Hydrocodone/Acetaminophen (*Crx) 5-325 Mg Tablet PO 1 tab Q4H PRN Administration Pain Rated 4-6 Enoxaparin Sodium 40 mg 01/10/25 09:00 01/13/25 08:06 Enoxaparin 40 Mg/0.4 Ml Syringe SUB-Q 40 mg DAILY DAYNA Administration Ibuprofen 800 mg in 200 mls @ 400 mls/hr 01/09/25 15:40 01/13/25 10:09 Caldolor 800 Mg/200 Ml IVPB 400 mls/hr Q6H DAYNA Administration Melatonin 12 mg 01/09/25 15:51 Melatonin 3 Mg Tablet PO HS PRN sleep Morphine Sulfate 4 mg 01/09/25 15:40 01/12/25 14:01 Morphine Sulfate (*Crx) 4 Mg/Ml Inj IV PUSH 4 mg Q2H PRN Administration Breakthrough Pain Rated 7-10 or NPO Morphine Sulfate 2 mg 01/09/25 15:40 Morphine Sulfate (*Crx) 4 Mg/Ml Inj IV PUSH Q2H PRN Breakthrough Pain Rated 4-6 or NPO Naloxone HCl 0.1 mg 01/09/25 15:40 Naloxone Hcl 0.4 Mg/Ml Vial IV PUSH Q2M PRN Opiate Reversal Ondansetron HCl 4 mg 01/09/25 15:40 01/09/25 17:14 Ondansetron Inj 4 Mg/2 Ml Vial IV PUSH 4 mg Q4H PRN Administration Nausea And Vomiting Oxycodone/Acetaminophen 1 tab 01/09/25 15:40 Oxycodone/Acetaminophen (*Crx) 10-325 Mg Tablet PO Q6H PRN Pain Rated 7-10 Polyethylene Glycol 17 gm 01/10/25 09:00 01/13/25 08:07 Polyethylene Glycol 3350 17 Gm Powd.Pack PO 17 gm QAM DAYNA Administration Senna/Docusate Sodium 2 tab 01/09/25 21:00 01/12/25 22:03 Senna/Docusate Sodium Tablet PO 2 tab HS DAYNA Administration Labs Labs: Laboratory Results - last 24 hr 01/13/25 04:56 WBC 8.5 RBC 2.92 L Hgb 9.3 L Hct 28.5 L MCV 97.6 MCH 31.8 MCHC 32.6 RDW 12.6 Plt Count 336 MPV 9.9 Sodium 136 L Potassium 3.5 Chloride 102 Carbon Dioxide 29 Anion Gap 5 BUN 8 Creatinine 0.71 Estim Creat Clear Calc 65 Estimated GFR > 60 Glucose 106 Calcium 8.1 L
[2025-01-13] MEDS: POTASSIUM CHLORIDE 20 MEQ ER TABLET 40 MEQ PO (15:44)
--- NOTE | 2025-01-13 17:13 | PC.NURSE ---
Drain was pulled out intact, suture removed, gauze and Tegaderm to dress the site. Pt was in no pain during and after removal.
[2025-01-13] MEDS: SENNA/DOCUSATE SODIUM TABLET 2 TAB PO (21:42)
[2025-01-14] MEDS: IBUPROFEN IV 800 MG/200 ML 800 MG/200 ML BAG 400 MG IVPB ×2 (03:38→08:43)
[2025-01-14 05:20] VITALS: BP 139/77; PULSE 88; RESP 20; TEMP 36.8; O2SAT 96
[2025-01-14 06:17] LABS: Hematocrit 30.2 % (37.0-47.0); Hemoglobin 9.8 g/dL (12.0-15.0); Mean Corpuscular HGB Conc 32.5 g/dl (32-36); Mean Corpuscular Hemoglobin 31.5 pg (26-34); Mean Corpuscular Volume 97.1 fl (80-100); Platelet Count Result 402 k/mm3 (150-375); Red Blood Count 3.11 M/mm3 (4.2-5.4); White Blood Count 9.6 K/mm3 (4.5-10.0)
[2025-01-14 07:14] LABS: Anion Gap 5 mmol/L (4-12); Blood Urea Nitrogen 8 mg/dL (7-17); Calcium 8.4 mg/dL (8.4-10.2); Carbon Dioxide 28 mmol/L (22-30); Chloride 102 mmol/L (98-107); Estimated CRCL calculation 73 ml/min; Estimated Glomerular Filt Rate > 60; Glucose 124 mg/dL (65-110); Potassium 3.1 mmol/L (3.4-5.0); Sodium 135 mmol/L (137-145)
--- NOTE | 2025-01-14 08:04 | P.DS_ITS ---
DS: Admitting Diagnosis Discharge Date 01/14/2025 Admitting Diagnosis * Incisional hernia * Former smoker * History of colectomy and colostomy closure DS: Discharge Diagnosis Discharge Diagnosis (1) Incisional hernia: Qualifiers: Obstruction and gangrene presence: without obstruction or gangrene Qualified Code(s): K43.2 - Incisional hernia without obstruction or gangrene Code(s): K43.2 - Incisional hernia without obstruction or gangrene Status: Chronic Assessment and Plan: Repaired open with mesh with bilateral transversus abdominis myofascial flap advancement per Dr. Clinton 01/09/2025 (2) History of colectomy: Code(s): Z90.49 - Acquired absence of other specified parts of digestive tract Status: Chronic Assessment and Plan: Sigmoidectomy and colostomy closure performed 05/16/2024 (3) Former smoker: Code(s): Z87.891 - Personal history of nicotine dependence Status: Chronic (4) Hypokalemia: Code(s): E87.6 - Hypokalemia Status: Acute Assessment and Plan: Being replaced DS: Summary Hospital Course Hospital Course: After extensive preoperative preparation, patient was taken to surgery on 01/09/2025 with plans for robotic laparoscopic repair of 5 cm incisional hernia. At surgery, it was noted that the abdominal adhesions were very extensive and getting access to the abdominal cavity laparoscopically was difficult and with the bowel involved in adhesions, laparoscopic adhesiolysis would be hazardous. Also the hernia appeared larger than expected with bowel involvement such that laparoscopic robotic repair would not be as effective as open repair with myofascial flap advancement. The procedure was then converted to open incisional hernia repair with mesh with bilateral myofascial flap advancement. This was a difficult, long surgery due to the reasons above-adhesions and large hernia defect. There was also found to be additional hernia defects that were not expected. The surgery did go well and patient had a fairly uneventful recovery. She was started on liquids on postop day 1. And slowly advanced to solid food. She was on IV pain medication but by postop day number 3, she was comfortable on oral pain medication. Bowel function returned on postop day 4. Her VERONICA drain was removed on postop day number for as well. She did have significant hypokalemia noted on postop day 3. This was treated and although her potassium remains slightly low, it was not nearly as low as found on postop day 3. Potassium was supplemented and she will go home on some potassium. Her incision was closed with wound consuelo. She is discharged now in good condition. Plans are to follow-up with Dr. Clinton on 01/17/2025 for a wound check, staple removal, and postop assessment. Status at Discharge Functional status at discharge: independent ambulation Overall status at discharge: patient is progressing back to baseline Time Spent with Patient Time attestation: Total time spent providing and/or coordinating discharge services: Time spent: Less than 30 minutes DS: Data Data Completed and Pending Labs on day of discharge: Labs from last 24 hours 01/14/25 05:39 WBC 9.6 RBC 3.11 L Hgb 9.8 L Hct 30.2 L MCV 97.1 MCH 31.5 MCHC 32.5 RDW 12.5 Plt Count 402 H MPV 9.5 Sodium 135 L Potassium 3.1 L Chloride 102 Carbon Dioxide 28 Anion Gap 5 BUN 8 Creatinine 0.63 L Estim Creat Clear Calc 73 Estimated GFR > 60 Glucose 124 H Calcium 8.4 Discharge Plan Discharge Attending physician on discharge: Nic Clinton Discharging Clinician: Nic Clinton Anticipated Discharge Date/Time: 01/14/25 08:14 Patient Disposition: Home Activity: may shower, no straining and as tolerated Diet: regular Wound Care Instructions: remove dressing to shower and change dressing daily Discharge Instructions: * Ambulate 3-4 x per day and as tolerated. * No lifting over 15-20lbs. * May bathe or shower. * Stairs are OK. * May drive a car in 3 days. * Remove any dressings before shower and replace after. * Re-dress abdominal incision daily with dry gauze and tape until 01/16/2025, at which time it can remain open. * Drain site dressing can be removed on 01/16/2025, and left open at that time as well. * Call Dr. Carranza office and make appointment to see him , 01/17/2025, for follow-up visit. * Take potassium supplement until it is gone. Patient Instructions: Antibiotic Form Patient Language: Macanese Stand Alone Forms: General Discharge Information Follow-up/Referrals: Nic Clinton MD [Physician, General Surgery] - 01/17/25 Referral Note: Call Dr. Carranza office to make follow-up appointment Discharge Medications: New oxycodone-acetaminophen [Percocet] 5-325 mg tablet 0.5 - 1 tablet PO Q4H PRN (Reason: pain) Qty: 10 0RF ibuprofen 600 mg tablet 600 mg PO Q6H PRN (Reason: pain) Qty: 14 0RF potassium chloride 20 mEq tablet extended release 20 meq PO DAILY Qty: 7 0RF Continued black cohosh 540 mg capsule 20 mg PO DAILY multivitamin [Daily Multi-Vitamin] Tablet 1 tablet PO DAILY melatonin 12 mg tablet 12 mg PO HS PRN (Reason: sleep) Other Ambulatory Orders: Basic Metabolic Panel (Routine) Timeframe: 20250121 Location: Determined by Patient Ordered By: Nic Clinton Complete Blood Count no Diff (Routine) Timeframe: 20250121 Location: Determined by Patient Ordered By: Nic Clinton Date of admission: 01/10/25 14:55 Primary Care Provider: Jennifer,Cheryl Lewis Admitting Provider: Nic Clinton Attending physician on admission: Nic Clinton Condition: Improved
[2025-01-14] MEDS: ENOXAPARIN 40 MG/0.4 ML SYRINGE SUB-Q (08:06)
== END 2025-01-14 10:40 | disposition home or self-care (01) | DRG 337 ==
LOC: ANHSURGERY 16:44 → ANH3MEDSUR 16:44
PROVIDERS: Nurse Practitioner Family; Admitting Provider Surgery; PCP Family Medicine; Visit Provider Surgery
PROC: 0WUF0JZ Supplement Abdominal Wall with Synthetic Substitute, Open Approach (ICD-10-PCS; principal; 2025-01-09 10:00)
DX: K43.2 Incisional hernia without obstruction or gangrene (principal); K66.0 Peritoneal adhesions (postprocedural) (postinfection); Z53.31 Laparoscopic surgical procedure converted to open procedure; E87.6 Hypokalemia; M41.9 Scoliosis, unspecified; Z87.891 Personal history of nicotine dependence; Z90.49 Acquired absence of other specified parts of digestive tract
CPT/HCPCS: 36415; 80048; 84132; 85027; 86850; 86900; 86901; J0690; A9270; C1781; J1100; J1171; J1650; J1741; J1885; J2270; J2405; J2704; J3010; J3480; J7040; J7120

== ENCOUNTER 2025-01-22 10:09 | Outpatient (CLI) | payer BC, SELFPAY ==
[2025-01-22 10:21] LABS: Hematocrit 34.1 % (35.0-49.0); Hemoglobin 10.8 g/dL (12.0-15.0); Immature Platelet Fraction Pct 1.6 % (1.0-7.0); Mean Corpuscular HGB Conc 31.7 g/dL (32-36); Mean Corpuscular Hemoglobin 31.3 pg (27.0-31.0); Mean Corpuscular Volume 98.8 fL (78.0-102.0); Platelet Count Result 733 K/mm3 (150-420); Red Blood Count 3.45 M/mm3 (4.20-5.40); White Blood Count 16.8 K/mm3 (4.8-10.8)
[2025-01-22 10:39] LABS: Anion Gap 11 mmol/L (4-12); Blood Urea Nitrogen 17 mg/dL (7-17); Calcium 9.6 mg/dL (8.4-10.2); Carbon Dioxide 27 mmol/L (22-30); Chloride 103 mmol/L (98-107); Estimated Glomerular Filt Rate > 60; Glucose 106 mg/dL (65-110); Osmolality Calculated 293 mOsm/kg (285-295); Potassium 4.0 mmol/L (3.4-5.0); Sodium 141 mmol/L (137-145)
--- OUTSIDE RECORDS SUMMARY | 2025-01-22 11:49 | XMS_ITS | Clinical Summary ---
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
== END 2025-01-22 10:10 | disposition home or self-care (01) ==
PROVIDERS: PCP Family Medicine; Visit Provider Surgery
DX: D64.9 Anemia, unspecified (principal); E87.6 Hypokalemia
CPT/HCPCS: 36415; 80048; 85027; 85055

== ENCOUNTER 2025-01-24 10:28 | Outpatient (CLI) | payer BC, SELFPAY ==
[2025-01-24 11:05] LABS: Hematocrit 36.5 % (37.0-47.0); Hemoglobin 11.7 g/dL (12.0-15.0); Immature Granulocyte Percent A 1.7 % (0-0.5); Lymphocytes Absolute Auto 4.42 K/mm3 (0.9-3.2); Mean Corpuscular HGB Conc 32.1 g/dl (32-36); Mean Corpuscular Hemoglobin 31.5 pg (26-34); Mean Corpuscular Volume 98.4 fl (80-100); Nucleated Red Blood Cells Absolute Auto 0.000 K/mm3 (0.0-0.012); Nucleated Red Blood Cells Perc 0.0 % (0.0-0.2); Platelet Count Result 651 k/mm3 (150-375); Red Blood Count 3.71 M/mm3 (4.2-5.4); White Blood Count 14.6 K/mm3 (4.5-10.0)
--- OUTSIDE RECORDS SUMMARY | 2025-01-24 11:11 | XMS_ITS | Clinical Summary ---
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
== END 2025-01-24 10:29 | disposition home or self-care (01) ==
LOC: ANHLAB 10:29
PROVIDERS: PCP Family Medicine; Visit Provider Surgery
DX: D72.829 Elevated white blood cell count, unspecified (principal); J34.89 Other specified disorders of nose and nasal sinuses
CPT/HCPCS: 36415; 85025

== ENCOUNTER 2025-01-29 09:26 | Outpatient (CLI) | payer BC, SELFPAY ==
[2025-01-29 09:38] LABS: Hematocrit 34.9 % (35.0-49.0); Hemoglobin 11.1 g/dL (12.0-15.0); Immature Platelet Fraction Pct 2.1 % (1.0-7.0); Mean Corpuscular HGB Conc 31.8 g/dL (32-36); Mean Corpuscular Hemoglobin 31.1 pg (27.0-31.0); Mean Corpuscular Volume 97.8 fL (78.0-102.0); Platelet Count Result 494 K/mm3 (150-420); Red Blood Count 3.57 M/mm3 (4.20-5.40); White Blood Count 10.3 K/mm3 (4.8-10.8)
--- OUTSIDE RECORDS SUMMARY | 2025-01-29 09:46 | XMS_ITS | Clinical Summary ---
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
[2025-01-29 09:48] LABS: Band Neutrophils Percent 0 % (0-6); Basophils Absolute Manual 0.10 K/mm3 (0-0.1); Basophils Percent Manual 1 % (0-1); Eosinophils Absolute Manual 1.03 K/mm3 (0.02-0.50); Eosinophils Percent Manual 10 % (1-6); Lymphocytes Absolute Manual 3.70 K/mm3 (1.1-4.5); Lymphocytes Percent Manual 36 % (18-44); Monocytes Absolute Manual 0.30 K/mm3 (0.1-0.90); Monocytes Percent Manual 3 % (3-9); Neutrophils Absolute Manual 5.15 K/mm3 (1.3-6.7); Neutrophils Percent Manual 50 % (46-73); Total Cells Counted 100
== END 2025-01-29 09:27 | disposition home or self-care (01) ==
LOC: CHSLAB 09:27
PROVIDERS: PCP Family Medicine; Visit Provider Surgery
DX: J34.89 Other specified disorders of nose and nasal sinuses (principal); D72.829 Elevated white blood cell count, unspecified
CPT/HCPCS: 36415; 85025; 85055